=== PATIENT | female | born 1980 | race Caucasian/White ===

== ENCOUNTER → 2019-07-02 09:40 | Outpatient (CLI) | payer OTHER, SELFPAY ==
--- NOTE | 2019-07-02 09:50 | CT_ITS ---
PROCEDURE: CT CHEST W CON CLINCAL INDICATION: SOB,PRIOR LUNG NODULE shortness of air, cough, follow-up lung nodule COMPARISON: [facility], [place] CTA-CHEST from 06/26/2017 TECHNIQUE: IV Contrast: 75ml Optiray 350 Axial images obtained with sagittal and coronal reformats. All CT scans at the facility use one or more dose reduction, viz: automated exposure control, ma/kV adjustment per patient size (including targeted exams where dose is matched to indication, i.e. head), or iterative reconstruction technique. FINDINGS: HEART,AORTA,PULMONARY ARTERIES Unremarkable. MEDIASTINAL AND HILAR STRUCTURES: No mediastinal or hilar mass evident. No dominant adenopathy.. There is some residual soft tissue density in the anterior mediastinum which may be related to residual thymic tissue. LUNGS: There is a 3 mm noncalcified nodule in the right upper lobe laterally nonspecific too small to categorize unchanged. No effusions or infiltrates are evident. A calcified nodules present in the right upper lobe medially. An additional partially calcified nodules present in the left lower lobe medially unchanged. No new nodules are evident. A noncalcified nodules present in the superior segment of the left lower lobe at 7 mm similar to the previous exam. No new nodules. No suspicious nodules. There is a 4 mm noncalcified nodule in the superior segment of left lower lobe unchanged. PLEURAL SPACES: No significant effusion. No evidence of pneumothorax. BONY STRUCTURES: No acute bony abnormalities apparent. LYMPH NODES: No enlarged lymph nodes evident. UPPER ABDOMEN: Unremarkable. ADDITIONAL FINDINGS: No other significant abnormalities. IMPRESSION: Overall stable CT appearance of the chest. Calcified and noncalcified pulmonary nodules are once again noted unchanged. No new nodules evident. No change with no acute finding. Dictated by: Jason Hernandez MD 07/04/2019 13:21 Electronically signed by Jason Hernandez MD in [place] 07/04/2019 13:21
== END ==
PROVIDERS: PCP Family Medicine; Visit Provider Allergy & Immunology
DX: R06.02 Shortness of breath (principal); R91.8 Other nonspecific abnormal finding of lung field
CPT/HCPCS: 71260; Q9967

== ENCOUNTER → 2020-06-15 07:59 | Outpatient (CLI) | payer MEDICAID, SELFPAY ==
--- NOTE | 2020-06-15 08:03 | US_ITS ---
PROCEDURE: US ABDOMEN LIMITED CLINICAL INDICATION: ABD PAIN, NAUSEA AND VOMITING Nausea COMPARISON: No exams were available for comparison FINDINGS: PANCREAS: Unremarkable. No obvious mass or abnormal fluid collection. No ductal dilatation LIVER: No focal liver lesions demonstrated. Homogeneous echogenicity. No intrahepatic biliary ductal dilatation evident. There is appropriate direction of blood flow within a non dilated portal vein RIGHT KIDNEY: Unremarkable. Normal size and echogenicity. No hydronephrosis GALLBLADDER: No gallstones, gallbladder wall thickening, pericholecystic fluid, or biliary dilatation. IMPRESSION: Unremarkable limited abdominal ultrasound as detailed above disc Dictated by: Jason Hernandez MD 06/15/2020 12:53 Jason Hernandez MD in [place] 06/15/2020 12:53
== END ==
PROVIDERS: PCP Family Medicine; Visit Provider Nurse Practitioner
DX: R10.11 Right upper quadrant pain (principal); R11.2 Nausea with vomiting, unspecified
CPT/HCPCS: 76705

== ENCOUNTER → 2021-06-07 10:53 | Outpatient (CLI) | payer OTHER, SELFPAY | PROVIDERS: Visit Provider Nurse Practitioner | DX: Z20.822 Contact with and (suspected) exposure to COVID-19 (principal); U07.1 COVID-19 | CPT/HCPCS: C9803; U0003; U0005 ==

== ENCOUNTER → 2021-06-11 08:00 | Outpatient (CLI) | payer OTHER, SELFPAY | PROVIDERS: PCP Family Medicine; Visit Provider Family Medicine | DX: U07.1 COVID-19 (principal) ==

== ENCOUNTER → 2021-06-11 10:13 | Outpatient (CLI) | payer OTHER, SELFPAY | PROVIDERS: PCP Family Medicine; Visit Provider Nurse Practitioner | DX: Z20.822 Contact with and (suspected) exposure to COVID-19 (principal); U07.1 COVID-19 | CPT/HCPCS: C9803; U0003; U0005 ==

== ENCOUNTER 2021-06-14 07:50 | Outpatient (CLI) | payer OTHER, SELFPAY ==
[2021-06-14] VITALS (8 sets, daily range): BP systolic 119–141; BP diastolic 70–88; PULSE 65–74; RESP 17–18; TEMP 36.8; O2SAT 98–100
== END 2021-06-14 10:30 | disposition home or self-care (01) ==
PROVIDERS: PCP Family Medicine; Visit Provider Family Medicine
DX: U07.1 COVID-19 (principal); Z23 Encounter for immunization
CPT/HCPCS: 96365

== ENCOUNTER 2022-08-10 18:01 | Emergency (ER) | payer OTHER, SELFPAY ==
[2022-08-10 18:19] VITALS: BP 0/0; PULSE 0; RESP 0; TEMP -17.7; TEMP 0
== END 2022-08-10 18:19 | disposition left against medical advice (07) ==
PROVIDERS: Emergency Provider Nurse Practitioner Family; PCP Family Medicine
DX: Z53.8 Procedure and treatment not carried out for other reasons (principal)

== ENCOUNTER 2022-12-10 16:23 | Emergency (ER) | payer OTHER, SELFPAY ==
[2022-12-10 16:24] VITALS: BP 144/89; PULSE 82; RESP 20; TEMP 37; O2SAT 100; BMI 26.3
--- NOTE | 2022-12-10 16:54 | EXP.UTC ---
Discharge Plan Disposition Patient Disposition: Home, Self-Care Condition: Good Prescriptions Prescriptions: New promethazine-DM 6.25-15 mg/5 mL Syrup 5 ml PO Q6H PRN (Reason: Cough) Qty: 240 0RF prednisone 10 mg tablet 10 mg PO DIRECTED 9 Days Qty: 21 0RF Rx Instructions: Take 4 tablets daily for 3 days, then take 2 tablets daily for 3 days, then take 1 tablet daily for 3 days, then stop. azithromycin [Zithromax] 250 mg tablet 250 mg PO UD DOSE PK Qty: 6 0RF Rx Instructions: Take two (2) tablets today, then one (1) tablet days #2 thru #5 guaifenesin [Mucinex] 600 mg tablet extended release 12hr 600 - 1,200 mg PO BIDP PRN (Reason: Congestion) Qty: 30 0RF No Action albuterol sulfate 90 mcg/actuation HFA aerosol inhaler 1 puff INHALATION Q6H PRN (Reason: Shortness Of Breath) Referrals Follow up/Referrals: Tico Whelan MD [Primary Care Provider] - See instructions Activity Restrictions/Add. Instructions Additional Instructions/Restrictions: Drink plenty of fluids. Take tylenol or ibuprofen for pain or fever. Take the medications as directed. Follow up with your regular doctor. GO TO THE ER FOR ANY WORSENING SYMPTOMS Don't start the oral steroids until tomorrow, since you had the shot here today. The cough medication (promethazine dm) will make you drowsy, so don't drive or operate heavy machinery after taking it. Clinical Impressions Clinical Impression: Asthma exacerbation, Sinusitis Instructions Patient Instructions: DI for Asthma -- Adult, DI for Sinusitis Discharge ED Provider: Homer Coats [facility] General Stated complaint: Sinus, cough, congestion Mode of Arrival: Ambulatory Source of Information: Patient Limitations: No Limitations Time Seen by Provider: 12/10/22 16:54 Description of Symptoms (Recalled from Triage Doc. by RN): sore throat, SENA, congestion, cough, and sinuses. HEENT Symptoms (Recalled from RN notes): Yes Resp Symptoms (Recalled from RN notes): No Skin Symptoms (Recalled from RN notes): No MS Symptoms (Recalled from RN notes): No Functional Status (Recalled from RN notes): n/a History of Present Illness Provider Complaint: She states that for the past 4 days she has had worsening chest and sinus congestion. She has a history of asthma. She states that her asthma symptoms are worsening. At times she has had shortness of breath. Related Data Home Medications Medication Instructions Recorded Confirmed albuterol sulfate 90 mcg/actuation 1 puff inhalation Q6H PRN 05/02/18 09/11/19 aerosol inhaler Shortness Of Breath Previous Rx's Medication Instructions Recorded azithromycin 250 mg tablet 250 mg PO UD DOSE PK #6 tabs 12/10/22 (Zithromax) guaifenesin 600 mg tablet, 600 - 1,200 mg PO BIDP PRN 12/10/22 extended release 12 hr (Mucinex) Congestion #30 tabs prednisone 10 mg tablet 10 mg PO DIRECTED 9 days #21 12/10/22 tabs promethazine-DM 6.25 mg-15 mg/5 mL 5 ml PO Q6H PRN Cough #240 mL 12/10/22 oral syrup Allergies Allergy/AdvReac Type Severity Reaction Status Date / Time nalbuphine [NALBUPHINE] Allergy Mild Verified 12/10/22 16:43 Penicillins [PENICILLINS] Allergy Mild Verified 12/10/22 16:43 tramadol [TRAMADOL] Allergy Mild Verified 12/10/22 16:43 Worker's Comp Is this a Worker's Comp case?: No [facility] Disclaimer: The information contained in this section may have been updated after the patient was seen, as this information can be updated by other users. Social History Smoking Status: Never smoker alcohol intake: never current occupational status: employed Travel in the last 8 weeks: Inside the [place] ROS Obtained: Yes All systems reviewed & no additional complaints except as documented Constitutional Constitutional: Reports poor appetite Eyes Eyes: Reports system reviewed and no additional complaints, except as docum
--- NOTE | 2022-12-10 17:09 | XR_ITS ---
PROCEDURE INFORMATION: Exam: XR Chest Exam date and time: 12/10/2022 5:16 PM Age: 42 years old Clinical indication: Cough TECHNIQUE: Imaging protocol: Radiologic exam of the chest. Views: 2 views. COMPARISON: CT CHEST W CON 07/02/2019 10:03 AM FINDINGS: Lungs: Unremarkable. No consolidation. Pleural spaces: Unremarkable. No pleural effusion. No pneumothorax. Heart/Mediastinum: Unremarkable. No cardiomegaly. Bones/joints: Unremarkable. IMPRESSION: No acute findings.
[2022-12-10 18:21] VITALS: BP 144/89; PULSE 82; RESP 20; TEMP 37; O2SAT 100
== END 2022-12-10 18:21 | disposition home or self-care (01) ==
PROVIDERS: Emergency Provider Nurse Practitioner Family; PCP Family Medicine
DX: J45.901 Unspecified asthma with (acute) exacerbation (principal); J01.90 Acute sinusitis, unspecified
CPT/HCPCS: 71046; 96372; 99212; 99214; G0463; J0696

== ENCOUNTER 2023-06-03 14:59 | Emergency (ER) | payer OTHER, SELFPAY ==
[2023-06-03] VITALS (8 sets, daily range): BP systolic 101–126; BP diastolic 61–78; PULSE 92–107; RESP 16–20; TEMP 36.7–36.8; O2SAT 96–99; BMI 25.8
[2023-06-03 15:29] LABS: Basophils % 0.1 % (0.1-2.0); Eosinophils % 0.3 % (0.1-12.0); Hemoglobin 15.1 g/dL (12.2-16.2); Lymphocytes # 1.5 K/mm3 (0.7-4.5); Lymphocytes % 15.2 % (10-50); Mean Corpuscular HGB Conc 33.5 g/dL (31.8-35.4); Mean Corpuscular Hemoglobin 29.9 pg (27.0-31.2); Mean Corpuscular Volume 89.3 fl (81-99); Mean Platelet Volume 7.4 fl (7.4-10.4); Monocytes # 0.3 K/mm3 (0.1-1.0); Monocytes % 2.6 % (1.7-9.3); Neutrophils # 8.3 K/mm3 (1.8-7.8); Neutrophils % 81.8 % (37.0-80.0); Platelet Count 357 K/mm3 (142-424); Red Blood Count 5.04 M/mm3 (4.20-5.40); Red Cell Distribution Width 13.6 % (11.5-17.5); White Blood Count 10.1 K/mm3 (4.8-10.8)
--- NOTE | 2023-06-03 15:31 | HMH.EDGENADL ---
Discharge Plan Disposition Patient Disposition: Home, Self-Care Prescriptions Prescriptions: New ondansetron 4 mg tablet,disintegrating 4 mg PO Q6H PRN (Reason: nausea and vomiting) Qty: 10 0RF No Action albuterol sulfate 90 mcg/actuation HFA aerosol inhaler 1 puff INHALATION Q6H PRN (Reason: Shortness Of Breath) promethazine-DM 6.25-15 mg/5 mL Syrup 5 ml PO Q6H PRN (Reason: Cough) Qty: 240 0RF prednisone 10 mg tablet 10 mg PO DIRECTED 9 Days Qty: 21 0RF Rx Instructions: Take 4 tablets daily for 3 days, then take 2 tablets daily for 3 days, then take 1 tablet daily for 3 days, then stop. azithromycin [Zithromax] 250 mg tablet 250 mg PO UD DOSE PK Qty: 6 0RF Rx Instructions: Take two (2) tablets today, then one (1) tablet days #2 thru #5 guaifenesin [Mucinex] 600 mg tablet extended release 12hr 600 - 1,200 mg PO BIDP PRN (Reason: Congestion) Qty: 30 0RF Referrals Follow up/Referrals: Tico Whelan MD [Primary Care Provider] - See instructions Activity Restrictions/Add. Instructions Additional Instructions/Restrictions: Call your family doctor to establish care for this visit to the emergency department and schedule follow-up within 48 hours to ensure improvement. If you have any worsening of your condition or any other concerning signs or symptoms, return to the emergency department or your primary care doctor for further evaluation. Zofran sent to your pharmacy, take this as needed for nausea and vomiting. Clinical Impressions Clinical Impression: Vomiting and diarrhea Instructions Patient Instructions: DI for Acute Abdominal Pain Discharge ED Provider: Chay Coon General Adult HPI General Chief complaint: Abdominal Pain Stated complaint: vomiting, dizzy, h/a Time Seen by Provider: 06/03/23 15:03 Mode of Arrival: Ambulatory Source of Information: Patient Limitations: No Limitations Description of Symptoms (Recalled from ER Triage Doc. by RN): pt began vomiting this morning at 0830 and then it has tunred into dry heaving with dizziness, no known hx of inner ear isssues, pt denies any fever or chest pain and is possibly concerned for food poisoning History of Present Illness HPI narrative: 42-year-old female, history of asthma presenting with vomiting and diarrhea. Patient states that she woke up today, started vomiting nonbloody, nonbilious vomit every 30 minutes to an hour. Has not been able to tolerate any p.o. intake, including medications. Sips of water, but she will throw up shortly thereafter. Diarrhea is nonbloody as well. Patient states that she is feeling lightheaded, has a headache, intermittently dizzy, but denies chest pain, new cough, fevers or chills, any sick contacts. She states that she went out with friends night prior to arrival and drank socially, but did not drink heavily, so not sure if this is contributing or not. Related Data Home Medications Medication Instructions Recorded Confirmed albuterol sulfate 90 mcg/actuation 1 puff inhalation Q6H PRN 05/02/18 09/11/19 aerosol inhaler Shortness Of Breath Previous Rx's Medication Instructions Recorded azithromycin 250 mg tablet 250 mg PO UD DOSE PK #6 tabs 12/10/22 (Zithromax) guaifenesin 600 mg tablet, 600 - 1,200 mg PO BIDP PRN 12/10/22 extended release 12 hr (Mucinex) Congestion #30 tabs prednisone 10 mg tablet 10 mg PO DIRECTED 9 days #21 12/10/22 tabs promethazine-DM 6.25 mg-15 mg/5 mL 5 ml PO Q6H PRN Cough #240 mL 12/10/22 oral syrup ondansetron 4 mg disintegrating 4 mg PO Q6H PRN nausea and 06/03/23 tablet vomiting #10 tabs Allergies Allergy/AdvReac Type Severity Reaction Status Date / Time nalbuphine [NALBUPHINE] Allergy Mild Verified 12/10/22 16:43 Penicillins [PENICILLINS] Allergy Mild Verified 12/10/22 16:43 tramadol [TRAMADOL] Allergy Mild Verified 12/10/22 16:43 [facility] Disclaimer: The information contained in this section may have been updat
[2023-06-03 15:39] LABS: Alanine Aminotransferase 30 U/L (12-78); Albumin/Globulin Ratio 1.4 (1.1-1.8); Alkaline Phosphatase 75 U/L (38-126); Anion Gap 14.2 mEq/L (5-15); Aspartate Amino Transferase 35 U/L (14-36); Bilirubin,Total 0.6 mg/dl (0.2-1.3); Blood Urea Nitrogen 9 mg/dl (7-17); Carbon Dioxide 25 mmol/L (22.0-30.0); Chloride 103 mmol/L (98-107); Creatinine Clearance Estimated 122 mL/min (50-200); Estimated Glomerular Filt Rate 93 ml/min (>60); GFR (African American) 112 ML/MIN (>60); Globulin 3.6 g/dL (1.3-3.2); Glucose 116 mg/dl (74-100); Potassium 4.2 mmoL/L (3.5-5.1); Sodium 138 mmol/L (136-145); Total Protein,Serum 8.6 g/dl (6.3-8.2)
[2023-06-03 15:56] LABS: HCG,Quantitative < 2 mIU/ml (0-5.42); Lipase 45 U/L (23-300)
--- NOTE | 2023-06-03 16:37 | PC.NURSE ---
gave patient water to drink for po challenge per er md
== END 2023-06-03 18:48 | disposition home or self-care (01) ==
PROVIDERS: Emergency Provider Emergency Medicine; PCP Family Medicine
DX: R11.2 Nausea with vomiting, unspecified (principal); R19.7 Diarrhea, unspecified; R42 Dizziness and giddiness; R51.9 Headache, unspecified
CPT/HCPCS: 80053; 83690; 84702; 85025; 96361; 96374; 96375; 99284; J0131; J2405

== ENCOUNTER 2023-12-20 16:41 | Emergency (ER) | payer OTHER, SELFPAY ==
[2023-12-20 16:50] VITALS: BP 166/85; PULSE 103; RESP 20; TEMP 36.5; O2SAT 98; BMI 25.8
[2023-12-20] MEDS: LACTATED RINGERS 1000ML 1,000 ML 999 ML IV (17:10)
[2023-12-20 17:14] LABS: Basophils # 0.1 K/mm3 (0-0.2); Basophils % 0.7 % (0.1-2.0); Eosinophils # 0.1 K/mm3 (0.0-0.4); Eosinophils % 1.8 % (0.1-12.0); Hematocrit 45.2 % (37.0-47.0); Hemoglobin 14.4 g/dL (12.2-16.2); Lymphocytes # 2.5 K/mm3 (0.7-4.5); Lymphocytes % 33.6 % (10-50); Mean Corpuscular HGB Conc 31.9 g/dL (31.8-35.4); Mean Corpuscular Hemoglobin 29.1 pg (27.0-31.2); Mean Corpuscular Volume 91.3 fl (81-99); Mean Platelet Volume 7.4 fl (7.4-10.4); Monocytes # 0.4 K/mm3 (0.1-1.0); Monocytes % 5.8 % (1.7-9.3); Neutrophils # 4.4 K/mm3 (1.8-7.8); Platelet Count 374 K/mm3 (142-424); Red Blood Count 4.96 M/mm3 (4.20-5.40); Red Cell Distribution Width 14.2 % (11.5-17.5); White Blood Count 7.5 K/mm3 (4.8-10.8)
--- NOTE | 2023-12-20 17:15 | ECG_ITS ---
APPROVED REPORT Exam: Resting ECG HR:105 bpm ECG Measurements Heart Rate 105 AXES HI 150 P 60 QRSd 73 QRS 39 QT 323 T 42 QTc 384 Conclusion SINUS TACHYCARDIA Electronically signed by : GERRY CARCAMO, 12/21/2023 14:57:33
[2023-12-20 17:20] LABS: Alanine Aminotransferase 21 U/L (12-78); Albumin/Globulin Ratio 1.5 (1.1-1.8); Alkaline Phosphatase 60 U/L (38-126); Anion Gap 12.8 mEq/L (5-15); Aspartate Amino Transferase 32 U/L (14-36); Bilirubin,Total 0.6 mg/dl (0.2-1.3); Blood Urea Nitrogen 12 mg/dl (7-17); Calcium 10.3 mg/dl (8.4-10.2); Carbon Dioxide 28 mmol/L (22.0-30.0); Chloride 104 mmol/L (98-107); Creatinine Clearance Estimated 106 mL/min (50-200); Estimated Glomerular Filt Rate 79 ml/min (>60); GFR (African American) 96 ML/MIN (>60); Globulin 3.3 g/dL (1.3-3.2); Glucose 101 mg/dl (74-100); Magnesium 2.1 mg/dl (1.6-2.3); Potassium 3.8 mmoL/L (3.5-5.1); Sodium 141 mmol/L (136-145); Total Protein,Serum 8.3 g/dl (6.3-8.2)
--- NOTE | 2023-12-20 17:31 | ED_ITS ---
Discharge Plan Disposition Patient Disposition: Home, Self-Care Chief Complaint: Dizziness Prescriptions Prescriptions: No Action albuterol sulfate 90 mcg/actuation HFA aerosol inhaler 1 puff INHALATION Q6H PRN (Reason: Shortness Of Breath) promethazine-DM 6.25-15 mg/5 mL Syrup 5 ml PO Q6H PRN (Reason: Cough) Qty: 240 0RF prednisone 10 mg tablet 10 mg PO DIRECTED 9 Days Qty: 21 0RF Rx Instructions: Take 4 tablets daily for 3 days, then take 2 tablets daily for 3 days, then take 1 tablet daily for 3 days, then stop. azithromycin [Zithromax] 250 mg tablet 250 mg PO UD DOSE PK Qty: 6 0RF Rx Instructions: Take two (2) tablets today, then one (1) tablet days #2 thru #5 guaifenesin [Mucinex] 600 mg tablet extended release 12hr 600 - 1,200 mg PO BIDP PRN (Reason: Congestion) Qty: 30 0RF ondansetron 4 mg tablet,disintegrating 4 mg PO Q6H PRN (Reason: nausea and vomiting) Qty: 10 0RF Referrals Follow up/Referrals: Provider,Referral, MD [Primary Care Provider] - See instructions Activity Restrictions/Add. Instructions Additional Instructions/Restrictions: Call your family doctor to establish care for this visit to the emergency department and schedule follow-up within 48 hours to ensure improvement. If you have any worsening of your condition or any other concerning signs or symptoms, return to the emergency department or your primary care doctor for further evaluation. Clinical Impressions Clinical Impression: Heart palpitations, Lightheadedness, Pre-syncope Discharge ED Provider: Chay Coon General Adult HPI General Chief complaint: Dizziness Stated complaint: allergic reaction at doctors office Time Seen by Provider: 12/20/23 16:43 Mode of Arrival: Ambulatory Source of Information: Patient Limitations: No Limitations Description of Symptoms (Recalled from ER Triage Doc. by RN): pt to ed c/o possible allergic reaction. pt states she received her monthly allergy injection, got to the car and became light-headed, dizzy, tachycardic and hypertensive. pt states i just don't feel right. pt denies cp. pt denies any new medication doses or changes. History of Present Illness HPI narrative: Please note that above description of symptoms, in this electronic medical record under categorization of recalled from ER triage doctor by RN are reflective of an initial nursing assessment, however, is not reflective of my full history and physical exam that was personally taken and clarified. Consequentially, this preceding description of symptoms, which may include the patient's categorized chief complaint in the EMR, do not reflect my personal clinical impression, and the ultimate description of history of present illness and patient stated complaints should be deferred to this section of the note. Unless stated otherwise or congruent with this section of the note, additional signs, symptoms, or incongruence should be interpreted as inaccurate with my clinical impression. Related Data Home Medications Medication Instructions Recorded Confirmed albuterol sulfate 90 mcg/actuation 1 puff inhalation Q6H PRN 05/02/18 09/11/19 aerosol inhaler Shortness Of Breath Previous Rx's Medication Instructions Recorded azithromycin 250 mg tablet 250 mg PO UD DOSE PK #6 tabs 12/10/22 (Zithromax) guaifenesin 600 mg tablet, 600 - 1,200 mg (1 - 2 x 600 mg) PO 12/10/22 extended release 12 hr (Mucinex) BIDP PRN Congestion #30 tabs prednisone 10 mg tablet 10 mg PO DIRECTED 9 days #21 12/10/22 tabs promethazine-DM 6.25 mg-15 mg/5 mL 5 ml PO Q6H PRN Cough #240 mL 12/10/22 oral syrup ondansetron 4 mg disintegrating 4 mg PO Q6H PRN nausea and 06/03/23 tablet vomiting #10 tabs Allergies Allergy/AdvReac Type Severity Reaction Status Date / Time nalbuphine [NALBUPHINE] Allergy Mild Verified 12/10/22 16:43 Penicillins [PENICILLINS] Allergy Mild Verified 12/10/22 16:43 tramadol [TRAMADOL] Allergy Mild Verified 12/10/22 16:43 [facility] Disclaimer: The information contained in this section may have been updated after the patient was seen, as this information can be updated by other users. Social History Smoking Status: Never smoker alcohol intake: never current occupational status: employed Travel in the last 8 weeks: Inside the [place] ROS Obtained: Yes All systems reviewed & no additional complaints except as documented Physical Exam General General appearance: alert and in no apparent distress Head Head exam: atraumatic and normocephalic Eye Eye exam: Present normal appearance, PERRL and EOMI ENT ENT exam: Present mucous membranes moist Neck Neck exam: Present normal inspection, full ROM and trachea midline Respiratory Respiratory exam: Absent respiratory distress, wheezes, stridor, accessory muscle use or prolonged expiratory phase Cardiovascular Cardiovascular exam: Present normal rhythm Abdominal Exam Abdominal exam: Present soft; Absent distention, tenderness, guarding, rebound or rigidity Extremities Exam Extremities exam: Absent edema Neurological Exam Neurological exam: Present alert, oriented X3, CN II-XII intact and normal gait; Absent motor sensory deficit Skin Skin exam: Present warm and dry; Absent diaphoresis or erythema Medical Decision Making Medical Records Medical records reviewed: Yes I reviewed the patient's medical records. Warner Inquiry Pt receiving controlled substance: No Warner was queried for this patient: No Vital Signs: 12/20/23 16:50 Temperature 97.7 F Temperature Source Oral Pulse Rate [Left Radial] 103 H Respiratory Rate 20 Blood Pressure [Right Arm] 166/85 H Blood Pressure Mean [Right Arm] 112 02 Sat by Pulse Oximetry 98 Oxygen Delivery Method Room Air Lab Data Lab Results 12/20/23 16:57: WBC 7.5, RBC 4.96, Hgb 14.4, Hct 45.2, MCV 91.3, MCH 29.1, MCHC 31.9, RDW 14.2, Plt Count 374, MPV 7.4, Neut % (Auto) 58.0, Lymph % (Auto) 33.6, [place] % (Auto) 5.8, Eos % (Auto) 1.8, Baso % (Auto) 0.7, Neut # (Auto) 4.4, Lymph # (Auto) 2.5, [place] # (Auto) 0.4, Eos # (Auto) 0.1, Baso # (Auto) 0.1, Sodium 141, Potassium 3.8, Chloride 104, Carbon Dioxide 28, Anion Gap 12.8, BUN 12, Creatinine 0.80, Estimated Creat Clear 106, Estimated GFR 79, Est GFR ( Amer) 96, Glucose 101 H, Calcium 10.3 H, Magnesium 2.1, Total Bilirubin 0.6, AST 32, ALT 21, Alkaline Phosphatase 60, Troponin I < 0.01, Total Protein 8.3 H, Albumin 5.0, Globulin 3.3 H, Albumin/Globulin Ratio 1.5 12/20/23 16:57 12/20/23 16:57 Orders (Tests/Meds): ED MEDICATIONS Discontinued Medications Generic Name Dose Route Start Last Admin Trade Name Daniella PRN Reason Stop Dose Admin Lactated Ringer's 1,000 mls @ 999 mls/hr 12/20/23 17:03 12/20/23 17:10 Lactated Ringer's 1000 Ml Bag IV 12/20/23 18:03 999 mls/hr .Q1H1M ONE Administration ORDERS Category Date Time Status CBC w/Auto Diff [Complete Blood Count Auto Diff] Stat Lab 12/20/23 16:57 Completed CMP [Comprehensive Metabolic Panel] Stat Lab 12/20/23 16:57 Completed Magnesium Stat Lab 12/20/23 16:57 Completed Trop I [Troponin I] Stat Lab 12/20/23 16:57 Completed Troponin I Q3H Lab 12/20/23 20:15 Ordered Troponin I Q3H Lab 12/20/23 23:15 Ordered Medical Decision Narrative: 43-year-old female history of allergies presenting with lightheadedness and palpitations. Patient states that she was getting allergy vaccinations just prior to this visit. Began feeling lightheaded with palpitations shortly thereafter. Try to sit still and manage conservatively, manager human capital recommended she come to the emergency department for further evaluation. Patient states that she has been getting these allergy shots for years, has never had similar reaction. Denies tongue or throat swelling, difficulty breathing, wheezing, cough, nausea or vomiting, abdominal discomfort, rash, or any other concerns. History was obtained via conversation with patient. On arrival, patient hemodynamically stable, alert, oriented x4, appropriate, GCS 15, moving all extremities spontaneously, pupils equal and reactive to light. Full physical exam performed and significant for anxious appearing woman in no acute distress. She is mildly tachycardic. Lungs are clear to auscultation bilaterally anterior and posterior. No extracardiac sounds. Differential includes anxiety, medication reaction, metabolic abnormality, anaphylaxis, among others. Patient was given fluids for symptomatic management and correction of underlying abnormalities. Workup independently interpreted and significant for nonactionable CBC and chemistry. Magnesium normal, overall unremarkable hematologic workup. See radiology read for full review of final results. Independent interpretation of EKG shows sinus tachycardia [address] or T wave changes concerning for acute ischemia. TX, QRS, QT intervals within normal limits. [place] normal. On reevaluation, patient feeling better, nontachycardic, normotensive, asymptomatic. Given patient presentation, workup, history, this most likely represents acute medication reaction versus acute anxiety. Because patient at baseline without signs or symptoms of clinical decompensation, deemed appropriate for discharge. Results were relayed to patient who voiced understanding and were agreeable to outpatient management and follow up. I discussed my clinical impression with patient and answered all questions. At this time, the evidence for any other entities in the differential is insufficient to warrant any further testing or ED observation. This was explained as well. Advisory was given that persistent or worsening symptoms require further evaluation. I confirmed the understanding of this discussion. Critical Care Critical Care Time Critical Care Time: No
[2023-12-20 17:45] LABS: Troponin I < 0.01 ng/ml (0.00-0.034)
--- NOTE | 2023-12-20 18:27 | PC.NURSE ---
DR CARCAMO AT BEDSIDE
[2023-12-20 18:38] VITALS: BP 129/67; PULSE 74; RESP 18; TEMP 37.1; O2SAT 99
== END 2023-12-20 18:41 | disposition home or self-care (01) ==
PROVIDERS: Emergency Provider Emergency Medicine
DX: R55 Syncope and collapse (principal); R42 Dizziness and giddiness; R00.2 Palpitations; R00.0 Tachycardia, unspecified
CPT/HCPCS: 80053; 83735; 84484; 85025; 93005; 96360; 99284

== ENCOUNTER 2024-07-21 10:19 | Emergency (ER) | payer OTHER, SELFPAY ==
[2024-07-21 10:33] VITALS: BP 141/70; PULSE 96; RESP 20; TEMP 36.9; O2SAT 98; BMI 25.3
[2024-07-21 10:40] LABS: UTC Strep Screen (Rapid) Negative (Negative)
--- NOTE | 2024-07-21 11:16 | EXP.UTC ---
Discharge Plan Disposition Patient Disposition: Home, Self-Care Condition: Good Prescriptions Prescriptions: New albuterol sulfate [Ventolin HFA] 90 mcg/actuation HFA aerosol inhaler 2 puff inhalation Q6H PRN (Reason: shortness of breath or wheezing) Qty: 6.7 0RF azithromycin [Zithromax] 250 mg tablet 250 mg PO UD DOSE PK Qty: 6 0RF Rx Instructions: Take two (2) tablets today, then one (1) tablet days #2 thru #5 methylprednisolone 4 mg Tablets,Dose Pack 4 mg PO DIRECTED 6 Days Qty: 21 0RF Rx Instructions: Take 1 pack as directed for 6 days No Action albuterol sulfate 90 mcg/actuation HFA aerosol inhaler 1 puff INHALATION Q6H PRN (Reason: Shortness Of Breath) tizanidine 2 mg tablet 2 mg PO DAILY Patient Comments: TAKE 1 TABLET BY MOUTH 3 TIMES DAILY NEEDED Referrals Follow up/Referrals: Marcial Crockett MD [Primary Care Provider] - See instructions Activity Restrictions/Add. Instructions Additional Instructions/Restrictions: Drink plenty of fluids. Take tylenol or ibuprofen for pain or fever. Take the medications as directed. Follow up with your regular doctor. GO TO THE ER FOR ANY WORSENING SYMPTOMS Clinical Impressions Clinical Impression: Asthma exacerbation Stand Alone Forms Stand Alone Forms: Work/School Release Instructions Patient Instructions: Asthma -- Adult, Methylprednisolone, Azithromycin Print Language Print Language: Persian Discharge ED Provider: Homer Coats [facility] [place] General Stated complaint: chest congestion, sore throat, cough Mode of Arrival: Ambulatory Source of Information: Patient Time Seen by Provider: 07/21/24 11:16 Description of Symptoms (Recalled from Triage Doc. by RN): SORE THROAT, GREEN/YELLOW DRAINAGE, CHEST CONGESTION, COUGH AND BAD TASTE IN MOUTH HEENT Symptoms (Recalled from RN notes): Yes Resp Symptoms (Recalled from RN notes): Yes Skin Symptoms (Recalled from RN notes): No MS Symptoms (Recalled from RN notes): No Functional Status (Recalled from RN notes): WNL Related Data Home Medications ?Medication ?Instructions ?Recorded ?Confirmed albuterol sulfate 90 mcg/actuation 1 puff inhalation Q6H PRN 05/02/18 09/11/19 aerosol inhaler Shortness Of Breath tizanidine 2 mg tablet 2 mg PO DAILY 07/21/24 07/21/24 Previous Rx's ?Medication ?Instructions ?Recorded albuterol sulfate 90 mcg/actuation 2 puff inhalation Q6H PRN 07/21/24 aerosol inhaler (Ventolin HFA) shortness of breath or wheezing #6.7 grams azithromycin 250 mg tablet 250 mg PO UD DOSE PK #6 tabs 07/21/24 (Zithromax) methylprednisolone 4 mg tablets in 4 mg PO DIRECTED 6 days #21 tabs 07/21/24 a dose pack Allergies Allergy/AdvReac Type Severity Reaction Status Date / Time nalbuphine (NALBUPHINE) Allergy Mild Verified 12/10/22 16:43 Penicillins (PENICILLINS) Allergy Mild Verified 12/10/22 16:43 tramadol (TRAMADOL) Allergy Mild Verified 12/10/22 16:43 Worker's Comp Is this a Worker's Comp case?: No [facility] Disclaimer: The information contained in this section may have been updated after the patient was seen, as this information can be updated by other users. Social History Smoking Status: Never smoker alcohol intake: never current occupational status: employed ROS Obtained: Yes All systems reviewed & no additional complaints except as documented Constitutional Constitutional: Reports poor appetite Eyes Eyes: Reports system reviewed and no additional complaints, except as documented ENT Ears, Nose, Mouth, and Throat: Reports as per HPI Cardiovascular Cardiovascular: Reports system reviewed and no additional complaints, except as documented and Denies chest pain Respiratory Respiratory: Denies shortness of breath, Reports chest congestion, Reports cough, Denies stridor and Denies wheezing Gastrointestinal Gastrointestingal: Reports system reviewed and no additional complaints, except as documented; Denies abdominal pain, diarrhea or vomiting Musculoskeletal Musculoskeletal: Reports system reviewed and no additional complaints, except as documented and Denies arthralgias Integumentary/Breasts Skin/Breast: Reports system reviewed and no additional complaints, except as documented and Denies rash Neurologic Neurologic: Denies paresthesias Allergic/Immunologic Allergic/Immunologic: Denies wheezing Physical Exam General General appearance: alert and in no apparent distress Head Head exam: atraumatic, normocephalic and normal inspection Eye Eye exam: Present normal appearance, PERRL and EOMI ENT ENT exam: Present normal exam, normal oropharynx, mucous membranes moist, TM's normal bilaterally and normal external ear exam Neck Neck exam: Present normal inspection, full ROM and trachea midline; Absent meningismus or lymphadenopathy Chest Chest inspection: Present normal inspection and symmetric chest wall rise; Absent tenderness Respiratory Respiratory exam: Present normal lung sounds bilaterally; Absent respiratory distress Cardiovascular Cardiovascular exam: Present regular rate and normal rhythm; Absent JVD Abdominal Exam Abdominal exam: Present soft and normal bowel sounds; Absent distention, tenderness or guarding Extremities Exam Extremities exam: Present normal inspection, full ROM and normal capillary refill; Absent calf tenderness Back Exam Back exam: Present normal inspection; Absent tenderness Neurological Exam Neurological exam: Present alert and oriented X3 Psychiatric Psychiatric exam: Present normal affect and normal mood Skin Skin exam: Present warm, dry, intact and normal color Lymphatic Lymphatic Findings: no adenopathy Medical Decision Making Medical Records Medical records reviewed: No I reviewed the patient's medical records. Screening: Per USPSTF and CDC recommendations, given the prevalence of disease in our region, it is our hospital?s policy to screen for HIV and viral Hepatitis for all patients aged 18 and over and those with ongoing risk factors. Warner Inquiry Pt receiving controlled substance: No Vital Signs: 07/21/24 10:33 Temperature 98.5 F Temperature Source Oral Pulse Rate [Left Radial] 96 H Respiratory Rate 20 Blood Pressure [Left Arm] 141/70 H Blood Pressure Mean [Left Arm] 93 02 Sat by Pulse Oximetry 98 Lab Data Lab Results 07/21/24 10:27: Strep Scn Rapid Clinic Negative Orders (Tests/Meds): ORDERS Category Date Time Status Strep Screen Confirmation Stat Micro 07/21/24 10:27 Received
[2024-07-21 11:44] VITALS: BP 141/70; PULSE 96; RESP 20; TEMP 36.9
== END 2024-07-21 11:44 | disposition home or self-care (01) ==
PROVIDERS: Emergency Provider Nurse Practitioner Family; PCP Internal Medicine Adolescent Medicine
DX: J45.901 Unspecified asthma with (acute) exacerbation (principal); R05.9 Cough, unspecified; R09.89 Other specified symptoms and signs involving the circulatory and respiratory systems; J02.9 Acute pharyngitis, unspecified
CPT/HCPCS: 87880; 99212; G0381

== ENCOUNTER 2024-08-12 06:04 | Emergency (ER) | payer OTHER, SELFPAY ==
[2024-08-12 06:04] VITALS: BP 137/88; PULSE 104; RESP 16; TEMP 37.5; O2SAT 97; BMI 25.0
--- NOTE | 2024-08-12 06:06 | HMH.EDGENADL ---
Discharge Plan Disposition Patient Disposition: Home, Self-Care Prescriptions Prescriptions: New ondansetron 4 mg tablet,disintegrating 4 mg PO Q6H PRN (Reason: nausea and vomiting) Qty: 7 0RF promethazine 12.5 mg tablet 12.5 mg PO TID PRN (Reason: sedation) Qty: 7 0RF ondansetron 4 mg tablet,disintegrating 4 mg PO Q6H PRN (Reason: nausea and vomiting) Qty: 7 0RF promethazine 12.5 mg tablet 12.5 mg PO TID PRN (Reason: nausea and vomiting) Qty: 7 0RF No Action albuterol sulfate 90 mcg/actuation HFA aerosol inhaler 1 puff INHALATION Q6H PRN (Reason: Shortness Of Breath) tizanidine 2 mg tablet 2 mg PO DAILY Patient Comments: TAKE 1 TABLET BY MOUTH 3 TIMES DAILY NEEDED albuterol sulfate [Ventolin HFA] 90 mcg/actuation HFA aerosol inhaler 2 puff inhalation Q6H PRN (Reason: shortness of breath or wheezing) Qty: 6.7 0RF azithromycin [Zithromax] 250 mg tablet 250 mg PO UD DOSE PK Qty: 6 0RF Rx Instructions: Take two (2) tablets today, then one (1) tablet days #2 thru #5 methylprednisolone 4 mg Tablets,Dose Pack 4 mg PO DIRECTED 6 Days Qty: 21 0RF Rx Instructions: Take 1 pack as directed for 6 days Referrals Follow up/Referrals: Marcial Crockett MD [Primary Care Provider] - See instructions Activity Restrictions/Add. Instructions Additional Instructions/Restrictions: You were evaluated in the ER and are appropriate for discharge at this time. If needed, take the prescribed ondansetron (Zofran) for nausea and vomiting. Drink plenty of water. You can also drink Gatorade/other electrolyte drinks. If the ondansetron does not control your symptoms, then you can try the promethazine (Phenergan). Do not take these medications within 6 hours of each other to avoid potentially dangerous side effects. Promethazine can make you sleepy, do not drive or operate machinery after taking it. Make an appointment with your primary care doctor for reevaluation in a few days. Return to the ER with new, worsening, or otherwise concerning symptoms as discussed. Clinical Impressions Clinical Impression: Nausea & vomiting Instructions Patient Instructions: DI for Nausea -- Adult Print Language Print Language: Hungarian Discharge ED Provider: Horace Baker General Adult HPI <Horace Baker MD - Last Filed: 08/12/24 07:02> General Chief complaint: Nausea/Vomiting/Diarrhea Stated complaint: vomiting Time Seen by Provider: 08/12/24 06:06 History of Present Illness HPI narrative: 44-year-old female with no significant past medical history presents for acute nausea and vomiting. She reports that she ate some home canned tomatoes yesterday and then tonight around 1 AM started having severe vomiting. She reports that she has not had any abdominal pain. Reports there is no chance could be . Related Data Home Medications ?Medication ?Instructions ?Recorded ?Confirmed albuterol sulfate 90 mcg/actuation 1 puff inhalation Q6H PRN 05/02/18 09/11/19 aerosol inhaler Shortness Of Breath tizanidine 2 mg tablet 2 mg PO DAILY 07/21/24 07/21/24 Previous Rx's ?Medication ?Instructions ?Recorded albuterol sulfate 90 mcg/actuation 2 puff inhalation Q6H PRN 07/21/24 aerosol inhaler (Ventolin HFA) shortness of breath or wheezing #6.7 grams azithromycin 250 mg tablet 250 mg PO UD DOSE PK #6 tabs 07/21/24 (Zithromax) methylprednisolone 4 mg tablets in 4 mg PO DIRECTED 6 days #21 tabs 07/21/24 a dose pack ondansetron 4 mg disintegrating 4 mg PO Q6H PRN nausea and 08/12/24 tablet vomiting #7 tabs ondansetron 4 mg disintegrating 4 mg PO Q6H PRN nausea and 08/12/24 tablet vomiting #7 tabs promethazine 12.5 mg tablet 12.5 mg PO TID PRN nausea and 08/12/24 vomiting #7 tabs promethazine 12.5 mg tablet 12.5 mg PO TID PRN sedation #7 tabs 08/12/24 Allergies Allergy/AdvReac Type Severity Reaction Status Date / Time nalbuphine (NALBUPHINE) Allergy Mild Verified 12/10/22 16:43 Penicillins (PENICILLINS) Allergy Mild Verified 12/10/22 16:43 tramadol (TRAMADOL) Allergy Mild Verified 12/10/22 16:43 PFSH <Horace Baker MD - Last Filed: 08/12/24 07:02> COUNTS INCLUDE 234 BEDS AT THE [facility] Disclaimer: The information contained in this section may have been updated after the patient was seen, as this information can be updated by other users. Social History Smoking Status: Never smoker alcohol intake: never current occupational status: employed Travel in the last 8 weeks: Inside the [place] Have you lived/traveled outside [place] in past 30 days?: No Contact w/someone who lives/traveled outside [place] past 30 days?: No Exposure to someone with infectious disease in past 14 days?: No Do you have a fever (greater than 100.4 F or 38 C)?: No Have you tested positive for COVID-19: No Exposed to someone with COVID-19 in past 14 days?: No Do you have a sore throat?: No Do you have a cough?: No Do you have any weakness?: No Do you have any diarrhea?: No Are you experiencing any unusual bleeding?: No Do you have any muscle aches/pain?: No Do you have any abdominal pain?: No Are you experiencing loss of taste or smell?: No Other Medical History Have you received the Flu Vaccine for this season: No Have you received the Pneumonia Vaccine: No <Horace Baker MD - Last Filed: 08/12/24 07:02> ROS Obtained: Yes All systems reviewed & no additional complaints except as documented Physical Exam <Horace Baker MD - Last Filed: 08/12/24 07:02> General General appearance: alert and in no apparent distress Head Head exam: atraumatic and normocephalic Eye Eye exam: Present normal appearance, PERRL and EOMI ENT ENT exam: Present normal oropharynx and normal external ear exam Neck Neck exam: Present normal inspection and full ROM Chest Chest inspection: Present normal inspection and symmetric chest wall rise; Absent tenderness Respiratory Respiratory exam: Present normal lung sounds bilaterally; Absent respiratory distress Cardiovascular Cardiovascular exam: Present regular rate and normal rhythm Abdominal Exam Abdominal exam: Present soft; Absent distention, tenderness or guarding Extremities Exam Extremities exam: Present normal inspection; Absent edema or joint swelling Back Exam Back exam: Present normal inspection; Absent tenderness Neurological Exam Neurological exam: Present alert and oriented X3; Absent motor sensory deficit Psychiatric Psychiatric exam: Present normal affect and normal mood Skin Skin exam: Present warm, dry and normal color Lymphatic Lymphatic Findings: no adenopathy Medical Decision Making <Horace Baker MD - Last Filed: 08/12/24 07:02> Medical Records Medical records reviewed: Yes I reviewed the patient's medical records. Screening: Per USPSTF and CDC recommendations, given the prevalence of disease in our region, it is our hospital?s policy to screen for HIV and viral Hepatitis for all patients aged 18 and over and those with ongoing risk factors. Warner Inquiry Pt receiving controlled substance: No Warner was queried for this patient: No Vital Signs: 08/12/24 06:04 08/12/24 06:46 Temperature 99.5 F Temperature Source Oral Pulse Rate 115 H Pulse Rate [Right Radial] 104 H Respiratory Rate 16 Blood Pressure 148/88 H Blood Pressure [Right Arm] 137/88 Blood Pressure Mean [Right Arm] 104 Blood Pressure Source [Right Arm] Automatic Cuff Blood Pressure Position [Right Arm] Supine 02 Sat by Pulse Oximetry 97 97 Oxygen Delivery Method Room Air Lab Data Lab results reviewed: Yes I reviewed the patient's lab results. Lab Results 08/12/24 06:20: WBC 15.0 H, RBC 4.71, Hgb 13.6, Hct 40.0, MCV 84.9, MCH 28.9, MCHC 34.0, RDW 13.2, Plt Count 290, MPV 9.0, Neut % (Auto) 93.9 H, Lymph % (Auto) 2.9 L, [place] % (Auto) 2.7, Eos % (Auto) 0.1, Baso % (Auto) 0.1, Neut # (Auto) 14.1 H, Lymph # (Auto) 0.4 L, [place] # (Auto) 0.4, Eos # (Auto) 0.0, Baso # (Auto) 0.0, Sodium 134 L, Potassium 4.2, Chloride 106, Carbon Dioxide 25, Anion Gap 7.2, BUN 17, Creatinine 0.70, Estimated Creat Clear 116, Estimated GFR 92, Est GFR ( Amer) 111, Glucose 112 H, Calcium 9.6, Magnesium 2.0, Total Bilirubin 1.1, AST 29, ALT 23, Alkaline Phosphatase 55, Total Protein 7.1, Albumin 4.4, Globulin 2.7, Albumin/Globulin Ratio 1.6 08/12/24 06:20 08/12/24 06:20 Orders (Tests/Meds): ED MEDICATIONS Generic Name Dose Route Start Last Admin Trade Name Freq PRN Reason Stop Dose Admin Sodium Chloride 1,000 mls @ 999 mls/hr 08/12/24 06:30 08/12/24 06:28 Sod Chlor 0.9% 1000ml Bag IV 08/12/24 07:30 999 mls/hr .Q1H1M CORNEL Administration Discontinued Medications Generic Name Dose Route Start Last Admin Trade Name Freq PRN Reason Stop Dose Admin Acetaminophen 1,000 mg 08/12/24 06:25 08/12/24 06:38 Acetaminophen 500mg Tab PO 08/12/24 06:26 1,000 mg ONCE ONE Administration Promethazine HCl 25 mg 08/12/24 06:20 08/12/24 06:29 Promethazine Hcl 25mg/Ml 1ml Vial IV 08/12/24 06:21 25 mg ONCE ONE Administration Sodium Chloride 25 ml 08/12/24 06:20 08/12/24 06:29 Sodium Chloride 0.9% 25ml Bag IV 08/12/24 06:21 25 ml ONCE ONE Administration ORDERS Category Date Time Status CBC w/Auto Diff [Complete Blood Count Auto Diff] Stat Lab 08/12/24 06:20 Results CMP [Comprehensive Metabolic Panel] Stat Lab 08/12/24 06:20 Completed MAG [Magnesium] Stat Lab 08/12/24 06:20 Completed Medical Decision Narrative: 44-year-old female without significant past medical history presents for acute onset of vomiting a few hours after eating canned tomatoes.. History was obtained via interactive discussion with patient. On arrival, patient is [afebrile, hemodynamically stable, satting appropriately, alert, oriented x4, GCS 15], moving all extremities spontaneously. Full physical exam performed and significant for benign abdominal exam, moist mucous membranes Differential includes but is not limited to food poisoning, gastroenteritis, influenza. Patient was given 1 L IV fluid bolus, 25 mg Phenergan for symptomatic management and correction of underlying abnormalities. Workup initiated including basic labs. On re-evaluation, patient [remains afebrile, HD stable.] Laboratory workup independently interpreted by me and significant for mild leukocytosis, no significant electrolyte derangement, normal renal function.. CT of the abdomen pelvis was considered, but deemed unnecessary due to history and exam.. Given patient history, exam and workup, patient's presentation most likely represents possible food poisoning. Patient care handed off to oncoming physician pending reassessment. <Cass Saldivar MD - Last Filed: 08/12/24 07:29> Vital Signs: 08/12/24 06:04 08/12/24 06:46 Temperature 99.5 F Temperature Source Oral Pulse Rate 115 H Pulse Rate [Right Radial] 104 H Respiratory Rate 16 Blood Pressure 148/88 H Blood Pressure [Right Arm] 137/88 Blood Pressure Mean [Right Arm] 104 Blood Pressure Source [Right Arm] Automatic Cuff Blood Pressure Position [Right Arm] Supine 02 Sat by Pulse Oximetry 97 97 Oxygen Delivery Method Room Air Lab Data Lab Results 08/12/24 06:20: WBC 15.0 H, RBC 4.71, Hgb 13.6, Hct 40.0, MCV 84.9, MCH 28.9, MCHC 34.0, RDW 13.2, Plt Count 290, MPV 9.0, Neut % (Auto) 93.9 H, Lymph % (Auto) 2.9 L, [place] % (Auto) 2.7, Eos % (Auto) 0.1, Baso % (Auto) 0.1, Neut # (Auto) 14.1 H, Lymph # (Auto) 0.4 L, [place] # (Auto) 0.4, Eos # (Auto) 0.0, Baso # (Auto) 0.0, Sodium 134 L, Potassium 4.2, Chloride 106, Carbon Dioxide 25, Anion Gap 7.2, BUN 17, Creatinine 0.70, Estimated Creat Clear 116, Estimated GFR 92, Est GFR ( Amer) 111, Glucose 112 H, Calcium 9.6, Magnesium 2.0, Total Bilirubin 1.1, AST 29, ALT 23, Alkaline Phosphatase 55, Total Protein 7.1, Albumin 4.4, Globulin 2.7, Albumin/Globulin Ratio 1.6 Orders (Tests/Meds): ED MEDICATIONS Generic Name Dose Route Start Last Admin Trade Name Freq PRN Reason Stop Dose Admin Sodium Chloride 1,000 mls @ 999 mls/hr 08/12/24 06:30 08/12/24 06:28 Sod Chlor 0.9% 1000ml Bag IV 08/12/24 07:30 999 mls/hr .Q1H1M CORNEL Administration Discontinued Medications Generic Name Dose Route Start Last Admin Trade Name Daniella PRN Reason Stop Dose Admin Acetaminophen 1,000 mg 08/12/24 06:25 08/12/24 06:38 Acetaminophen 500mg Tab PO 08/12/24 06:26 1,000 mg ONCE ONE Administration Promethazine HCl 25 mg 08/12/24 06:20 08/12/24 06:29 Promethazine Hcl 25mg/Ml 1ml Vial IV 08/12/24 06:21 25 mg ONCE ONE Administration Sodium Chloride 25 ml 08/12/24 06:20 08/12/24 06:29 Sodium Chloride 0.9% 25ml Bag IV 08/12/24 06:21 25 ml ONCE ONE Administration ORDERS Category Date Time Status CBC w/Auto Diff [Complete Blood Count Auto Diff] Stat Lab 08/12/24 06:20 Results CMP [Comprehensive Metabolic Panel] Stat Lab 08/12/24 06:20 Completed MAG [Magnesium] Stat Lab 08/12/24 06:20 Completed Medical Decision Narrative: 44-year-old female without significant past medical history presents for acute onset of vomiting a few hours after eating canned tomatoes.. History was obtained via interactive discussion with patient. On arrival, patient is [afebrile, hemodynamically stable, satting appropriately, alert, oriented x4, GCS 15], moving all extremities spontaneously. Full physical exam performed and significant for benign abdominal exam, moist mucous membranes Differential includes but is not limited to food poisoning, gastroenteritis, influenza. Patient was given 1 L IV fluid bolus, 25 mg Phenergan for symptomatic management and correction of underlying abnormalities. Workup initiated including basic labs. On re-evaluation, patient [remains afebrile, HD stable.] Laboratory workup independently interpreted by me and significant for mild leukocytosis, no significant electrolyte derangement, normal renal function.. CT of the abdomen pelvis was considered, but deemed unnecessary due to history and exam.. Given patient history, exam and workup, patient's presentation most likely represents possible food poisoning. Patient care handed off to oncoming physician pending reassessment. Saldivar: Upon my assumption of care patient is stable, she has tolerated oral intake, she is receiving IV fluids and the medications listed above. I agree with the assessment and plan from Dr. Baker. Patient reports she is feeling somewhat improved, nausea is controlled. I discussed discharge with her, she is comfortable with this plan and I believe that is appropriate at this time since she is tolerating oral intake and symptoms are controlled with reassuring labs. Patient has an prescription for Zofran, new prescription for Zofran was provided. She also requested prescription for Phenergan in case her symptoms are not controlled by Zofran. I discussed with her how to appropriately take these medications to avoid interaction/side effects. Phenergan and Zofran both have been prescribed to the patient for symptom management. Patient was given instructions on symptomatic management, follow up instructions, and return precautions for the emergency department. Patient indicated understanding and was discharged in stable condition. Procedures <Horace Baker MD - Last Filed: 08/12/24 07:02> Risk/Benefits of Procedure(s) Were Explained: Yes Critical Care <Horace Baker MD - Last Filed: 08/12/24 07:02> Critical Care Time Critical Care Time: No
[2024-08-12] MEDS: 0.9 % SODIUM CHLORIDE 1000ML 1,000 ML 999 ML IV (06:28)
[2024-08-12] MEDS: PROMETHAZINE HCL 25MG/ML 1ML VIAL 25 MG IV (06:29)
[2024-08-12] MEDS: SODIUM CHLORIDE 0.9% 25ML BAG 25 ML IV (06:29)
[2024-08-12] MEDS: ACETAMINOPHEN 500MG TAB 1000 MG PO (06:38)
[2024-08-12 06:39] LABS: Basophils % 0.1 % (0.1-2.0); Eosinophils % 0.1 % (0.1-12.0); Hemoglobin 13.6 g/dL (12.2-16.2); Lymphocytes # 0.4 K/mm3 (0.7-4.5); Lymphocytes % 2.9 % (10-50); Mean Corpuscular Hemoglobin 28.9 pg (27.0-31.2); Mean Corpuscular Volume 84.9 fl (81-99); Monocytes # 0.4 K/mm3 (0.1-1.0); Monocytes % 2.7 % (1.7-9.3); Neutrophils # 14.1 K/mm3 (1.8-7.8); Neutrophils % 93.9 % (37.0-80.0); Platelet Count 290 K/mm3 (142-424); Red Blood Count 4.71 M/mm3 (4.20-5.40); Red Cell Distribution Width 13.2 % (11.5-17.5)
[2024-08-12 06:41] LABS: Albumin Level 4.4 g/dl (3.5-5.0); Chloride 106 mmol/L (98-107); MANUAL DIFFERENTIAL MANUAL DIFFERENTIAL (MANUAL DIFF)
[2024-08-12 06:42] LABS: Potassium 4.2 mmoL/L (3.5-5.1); Sodium 134 mmol/L (136-145)
[2024-08-12 06:44] LABS: Alanine Aminotransferase 23 U/L (12-78); Albumin/Globulin Ratio 1.6 (1.1-1.8); Alkaline Phosphatase 55 U/L (38-126); Anion Gap 7.2 mEq/L (5-15); Aspartate Amino Transferase 29 U/L (14-36); Bilirubin,Total 1.1 mg/dl (0.2-1.3); Blood Urea Nitrogen 17 mg/dl (7-17); Carbon Dioxide 25 mmol/L (22.0-30.0); Creatinine Clearance Estimated 116 mL/min (50-200); Estimated Glomerular Filt Rate 92 ml/min (>60); GFR (African American) 111 ML/MIN (>60); Globulin 2.7 g/dL (1.3-3.2); Total Protein,Serum 7.1 g/dl (6.3-8.2)
[2024-08-12 06:45] LABS: Calcium 9.6 mg/dl (8.4-10.2); Glucose 112 mg/dl (74-100)
[2024-08-12 06:46] VITALS: BP 148/88; PULSE 115; O2SAT 97
[2024-08-12 07:00] VITALS: BP 118/76; PULSE 89; RESP 18; O2SAT 99
[2024-08-12] MEDS: ONDANSETRON 4MG ODT 4 MG SL (07:55)
[2024-08-12 08:02] VITALS: BP 122/71; PULSE 98; RESP 18; TEMP 36.9; O2SAT 98
[2024-08-12 09:52] LABS: Lymphocytes % 4 % (10-50); Monocytes % 7 % (2-9); Neutrophils % 89 % (42-76); Platelet Estimate Normal; Total Cells Counted 100
[2024-08-12 09:53] LABS: RBC Morphology Normal
== END 2024-08-12 08:12 | disposition home or self-care (01) ==
PROVIDERS: Emergency Provider Emergency Medicine; PCP Internal Medicine Adolescent Medicine
DX: R11.2 Nausea with vomiting, unspecified (principal); R10.9 Unspecified abdominal pain
CPT/HCPCS: 80053; 83735; 85007; 85025; 85027; 96361; 96374; 99283; J2550; J7030; Q0162

== ENCOUNTER 2024-11-28 20:11 | Emergency (ER) | payer OTHER, SELFPAY ==
[2024-11-28 20:20] VITALS: BP 168/92; PULSE 117; RESP 20; TEMP 37.1; O2SAT 98; BMI 25.0
[2024-11-28 20:31] VITALS: BP 157/91; PULSE 121; O2SAT 99
[2024-11-28 21:00] VITALS: BP 159/101; PULSE 105; O2SAT 97
[2024-11-28 21:15] LABS: Basophils # 0.1 K/mm3 (0-0.2); Basophils % 0.5 % (0.1-2.0); Eosinophils # 0.1 K/mm3 (0.0-0.4); Hematocrit 42.3 % (37.0-47.0); Hemoglobin 14.2 g/dL (12.2-16.2); Lymphocytes # 2.2 K/mm3 (0.7-4.5); Mean Corpuscular HGB Conc 33.6 g/dL (31.8-35.4); Mean Corpuscular Hemoglobin 28.9 pg (27.0-31.2); Mean Platelet Volume 9.5 fl (7.4-10.4); Monocytes # 0.6 K/mm3 (0.1-1.0); Monocytes % 6.5 % (1.7-9.3); Neutrophils # 6.7 K/mm3 (1.8-7.8); Neutrophils % 68.7 % (37.0-80.0); Nucleated Red Blood Cells # 0 10^3/uL; Nucleated Red Blood Cells % 0 %; Platelet Count 375 K/mm3 (142-424); Red Blood Count 4.92 M/mm3 (4.20-5.40); Red Cell Distribution Width 13.5 % (11.5-17.5); Red Cell Distribution Width-SD 42.4 fL; White Blood Count 9.7 K/mm3 (4.8-10.8)
[2024-11-28] MEDS: LACTATED RINGERS 1000ML 1,000 ML 999 ML IV (21:17)
[2024-11-28] MEDS: ACETAMINOPHEN 1,000MG/100ML VIAL 1000 MG IV (21:17)
[2024-11-28] MEDS: KETOROLAC 30MG/ML VIAL 15 MG IV (21:17)
--- NOTE | 2024-11-28 21:18 | ECG_ITS ---
APPROVED REPORT Exam: Resting ECG HR:108 bpm ECG Measurements Heart Rate 108 AXES SD 140 P 69 QRSd 77 QRS 63 QT 326 T 64 QTc 390 Conclusion Sinus tachycardia Electronically signed by : GERRY CARCAMO, 11/29/2024 19:49:36
[2024-11-28 21:29] VITALS: BP 142/91; PULSE 114; O2SAT 99
[2024-11-28 21:31] LABS: Alanine Aminotransferase 17 U/L (12-78); Albumin Level 4.7 g/dl (3.5-5.0); Albumin/Globulin Ratio 1.4 (1.1-1.8); Alkaline Phosphatase 53 U/L (38-126); Anion Gap 14.8 mEq/L (5-15); Aspartate Amino Transferase 25 U/L (14-36); Bilirubin,Total 0.7 mg/dl (0.2-1.3); Blood Urea Nitrogen 12 mg/dl (7-17); Carbon Dioxide 27 mmol/L (22.0-30.0); Chloride 101 mmol/L (98-107); Creatinine Clearance Estimated 116 mL/min (50-200); Estimated Glomerular Filt Rate 92 ml/min (>60); GFR (African American) 111 ML/MIN (>60); Globulin 3.3 g/dL (1.3-3.2); Glucose 109 mg/dl (74-100); Magnesium 2.3 mg/dl (1.6-2.3); Potassium 3.8 mmoL/L (3.5-5.1); Sodium 139 mmol/L (136-145)
--- NOTE | 2024-11-28 21:31 | [facility].EDGENADL ---
Discharge Plan Disposition Patient Disposition: Home, Self-Care Prescriptions Prescriptions: New metoclopramide HCl [Reglan] 10 mg tablet 10 mg PO Q6H PRN (Reason: nausea and vomiting) Qty: 20 0RF No Action albuterol sulfate 90 mcg/actuation HFA aerosol inhaler 1 puff INHALATION Q6H PRN (Reason: Shortness Of Breath) ondansetron 4 mg tablet,disintegrating 4 mg PO Q6H PRN (Reason: nausea and vomiting) Qty: 7 0RF promethazine 12.5 mg tablet 12.5 mg PO TID PRN (Reason: sedation) Qty: 7 0RF ondansetron 4 mg tablet,disintegrating 4 mg PO Q6H PRN (Reason: nausea and vomiting) Qty: 7 0RF promethazine 12.5 mg tablet 12.5 mg PO TID PRN (Reason: nausea and vomiting) Qty: 7 0RF tizanidine 2 mg tablet 2 mg PO DAILY Patient Comments: TAKE 1 TABLET BY MOUTH 3 TIMES DAILY NEEDED albuterol sulfate [Ventolin HFA] 90 mcg/actuation HFA aerosol inhaler 2 puff inhalation Q6H PRN (Reason: shortness of breath or wheezing) Qty: 6.7 0RF azithromycin [Zithromax] 250 mg tablet 250 mg PO UD DOSE PK Qty: 6 0RF Rx Instructions: Take two (2) tablets today, then one (1) tablet days #2 thru #5 methylprednisolone 4 mg Tablets,Dose Pack 4 mg PO DIRECTED 6 Days Qty: 21 0RF Rx Instructions: Take 1 pack as directed for 6 days Referrals Follow up/Referrals: Marcial Crockett MD [Primary Care Provider] - See instructions Activity Restrictions/Add. Instructions Additional Instructions/Restrictions: If you begin having migraine auras again, take 800 mg of magnesium oxide, 1000 mg acetaminophen, 600 mg of ibuprofen, 10 mg of metoclopramide (Reglan) drink plenty of water and take a nap. Call your family doctor to establish care for this visit to the emergency department and schedule follow-up within 48 hours to ensure improvement. If you have any worsening of your condition or any other concerning signs or symptoms, return to the emergency department or your primary care doctor for further evaluation. Clinical Impressions Clinical Impression: Migraine Qualifiers: Migraine type: unspecified Status migrainosus presence: without status migrainosus Intractability: not intractable Qualified Code(s): G43.909 - Migraine, unspecified, not intractable, without status migrainosus Print Language Print Language: Swedish Discharge ED Provider: Chay Coon General Adult HPI General Chief complaint: Eye Problems Stated complaint: eye sight not right,lightheaded,dizziness Time Seen by Provider: 11/28/24 20:21 Mode of Arrival: Ambulatory Source of Information: Patient Description of Symptoms (Recalled from ER Triage Doc. by RN): Patient presents to ED with eye sight problems. patient states it started 2 hours ago describes as blurry vision, seeing floaters, and some dizziness. Patient states she had this happen very similar about a year ago. History of Present Illness HPI narrative: Please note that above description of symptoms, in this electronic medical record under categorization of recalled from ER triage doctor by RN are reflective of an initial nursing assessment, however, is not reflective of my full history and physical exam that was personally taken and clarified. Consequentially, this preceding description of symptoms, which may include the patient's categorized chief complaint in the EMR, do not reflect my personal clinical impression, and the ultimate description of history of present illness and patient stated complaints should be deferred to this section of the note. Unless stated otherwise or congruent with this section of the note, additional signs, symptoms, or incongruence should be interpreted as inaccurate with my clinical impression. Related Data Home Medications ?Medication ?Instructions ?Recorded ?Confirmed albuterol sulfate 90 mcg/actuation 1 puff inhalation Q6H PRN 05/02/18 09/11/19 aerosol inhaler Shortness Of Breath tizanidine 2 mg tablet 2 mg PO DAILY 07/21/24 07/21/24 Previous Rx's ?Medication ?Instructions ?Recorded albuterol sulfate 90 mcg/actuation 2 puff inhalation Q6H PRN 07/21/24 aerosol inhaler (Ventolin HFA) shortness of breath or wheezing #6.7 grams azithromycin 250 mg tablet 250 mg PO UD DOSE PK #6 tabs 07/21/24 (Zithromax) methylprednisolone 4 mg tablets in 4 mg PO DIRECTED 6 days #21 tabs 07/21/24 a dose pack ondansetron 4 mg disintegrating 4 mg PO Q6H PRN nausea and 08/12/24 tablet vomiting #7 tabs ondansetron 4 mg disintegrating 4 mg PO Q6H PRN nausea and 08/12/24 tablet vomiting #7 tabs promethazine 12.5 mg tablet 12.5 mg PO TID PRN nausea and 08/12/24 vomiting #7 tabs promethazine 12.5 mg tablet 12.5 mg PO TID PRN sedation #7 tabs 08/12/24 metoclopramide HCl 10 mg tablet 10 mg PO Q6H PRN nausea and 11/28/24 (Reglan) vomiting #20 tabs Allergies Allergy/AdvReac Type Severity Reaction Status Date / Time nalbuphine (NALBUPHINE) Allergy Mild Verified 12/10/22 16:43 Penicillins (PENICILLINS) Allergy Mild Verified 12/10/22 16:43 tramadol (TRAMADOL) Allergy Mild Verified 12/10/22 16:43 PFSH PFS Disclaimer: The information contained in this section may have been updated after the patient was seen, as this information can be updated by other users. Social History Smoking Status: Never smoker alcohol intake: never current occupational status: employed Travel in the last 8 weeks: Inside the [place] Have you lived/traveled outside [place] in past 30 days?: No Contact w/someone who lives/traveled outside [place] past 30 days?: No Exposure to someone with infectious disease in past 14 days?: No Do you have a fever (greater than 100.4 F or 38 C)?: No Have you tested positive for COVID-19: No Exposed to someone with COVID-19 in past 14 days?: No Do you have a sore throat?: No Do you have a cough?: No Do you have any weakness?: No Do you have any diarrhea?: No Are you experiencing any unusual bleeding?: No Do you have any muscle aches/pain?: No Do you have any abdominal pain?: No Are you experiencing loss of taste or smell?: No Other Medical History Have you received the Flu Vaccine for this season: No Have you received the Pneumonia Vaccine: No ROS Obtained: Yes All systems reviewed & no additional complaints except as documented Physical Exam General General appearance: alert and in no apparent distress Head Head exam: atraumatic and normocephalic Eye Eye exam: Present normal appearance, PERRL and EOMI Neck Neck exam: Present normal inspection, full ROM and trachea midline Respiratory Respiratory exam: Present normal lung sounds bilaterally; Absent respiratory distress, wheezes, stridor, accessory muscle use or prolonged expiratory phase Cardiovascular Cardiovascular exam: Present regular rate, normal rhythm and other (Pulses equal symmetric in upper and lower extremities) Abdominal Exam Abdominal exam: Present soft; Absent distention, tenderness or pulsatile mass Extremities Exam Extremities exam: Absent edema Neurological Exam Neurological exam: Present alert, oriented X3 and CN II-XII intact; Absent motor sensory deficit Skin Skin exam: Present warm and dry; Absent diaphoresis or erythema Medical Decision Making Medical Records Medical records reviewed: Yes I reviewed the patient's medical records. Screening: Per USPSTF and CDC recommendations, given the prevalence of disease in our region, it is our hospital?s policy to screen for HIV and viral Hepatitis for all patients aged 18 and over and those with ongoing risk factors. Warner Inquiry Pt receiving controlled substance: No Warner was queried for this patient: No Vital Signs: 11/28/24 20:20 11/28/24 20:31 11/28/24 21:00 Temperature 98.7 F Temperature Source Oral Pulse Rate 121 H 105 H Pulse Rate [Right Brachial] 117 H Respiratory Rate 20 Blood Pressure 157/91 H 159/101 H Blood Pressure [Right Arm] 168/92 H Blood Pressure Mean [Right Arm] 117 Blood Pressure Source [Right Arm] Automatic Cuff Blood Pressure Position [Right Arm] Sitting 02 Sat by Pulse Oximetry 98 99 97 Oxygen Delivery Method Room Air 11/28/24 21:29 Temperature Temperature Source Pulse Rate 114 H Pulse Rate [Right Brachial] Respiratory Rate Blood Pressure 142/91 H Blood Pressure [Right Arm] Blood Pressure Mean [Right Arm] Blood Pressure Source [Right Arm] Blood Pressure Position [Right Arm] 02 Sat by Pulse Oximetry 99 Oxygen Delivery Method Lab Data Lab Results 11/28/24 20:25: WBC 9.7, RBC 4.92, Hgb 14.2, Hct 42.3, MCV 86.0, MCH 28.9, MCHC 33.6, RDW 13.5, Plt Count 375, MPV 9.5, Neut % (Auto) 68.7, Lymph % (Auto) 23.0, [place] % (Auto) 6.5, Eos % (Auto) 1.0, Baso % (Auto) 0.5, Neut # (Auto) 6.7, Lymph # (Auto) 2.2, [place] # (Auto) 0.6, Eos # (Auto) 0.1, Baso # (Auto) 0.1, Sodium 139, Potassium 3.8, Chloride 101, Carbon Dioxide 27, Anion Gap 14.8, BUN 12, Creatinine 0.70, Estimated Creat Clear 116, Estimated GFR 92, Est GFR ( Amer) 111, Glucose 109 H, Calcium 10.0, Magnesium 2.3, Total Bilirubin 0.7, AST 25, ALT 17, Alkaline Phosphatase 53, Troponin I < 0.01, Total Protein 8.0, Albumin 4.7, Globulin 3.3 H, Albumin/Globulin Ratio 1.4, HCV Ab RADHA w/Rflx PCR Qn Negative, HIV Ag/Ab Combo Qual Negative 11/28/24 20:25 11/28/24 20:25 Orders (Tests/Meds): ED MEDICATIONS Discontinued Medications Generic Name Dose Route Start Last Admin Trade Name Freq PRN Reason Stop Dose Admin Acetaminophen 1,000 mg 11/28/24 21:08 11/28/24 21:17 Acetaminophen 1,000mg/100ml Vial IV 11/28/24 21:09 1,000 mg ONCE ONE Administration Lactated Ringer's 1,000 mls @ 999 mls/hr 11/28/24 21:08 11/28/24 21:17 Lactated Ringer's 1000 Ml Bag IV 11/28/24 22:08 999 mls/hr .Q1H1M ONE Administration Ketorolac Tromethamine 15 mg 11/28/24 21:08 11/28/24 21:17 Ketorolac 30mg/Ml Vial IV 11/28/24 21:09 15 mg ONCE ONE Administration ORDERS Category Date Time Status POCUS Point of Care (ER Only) Stat Exams 11/28/24 20:21 Completed CBC w/Auto Diff [Complete Blood Count Auto Diff] Stat Lab 11/28/24 20:25 Completed CMP [Comprehensive Metabolic Panel] Stat Lab 11/28/24 20:25 Completed HIV Combo Stat Lab 11/28/24 20:25 Completed Hepatitis C Ab Qual. W/ RFX Stat Lab 11/28/24 20:25 Completed Magnesium Stat Lab 11/28/24 20:25 Completed Trop I [Troponin I] Stat Lab 11/28/24 20:25 Completed Troponin I Q3H Lab 11/29/24 00:15 Ordered Troponin I Q3H Lab 11/29/24 03:15 Ordered Medical Decision Narrative: 44-year-old female presenting with multiple complaints. She states that she started having visual disturbances a couple days prior to this. Floaters, wavy lines, started. No loss of vision. She does have a history of what sounds to be like a complex migraine with loss of vision, she did not have that this time. Patient states that she has a pressure in her head and is feeling lightheaded as well. No vomiting, fevers, chills, diplopia, neurologic deficits otherwise. No family history of neurological abnormalities. No trauma. Patient has not taken any medications to make the pain better. she is specifically describing it as a pressure and not a pain. History was obtained via conversation with patient and family. On arrival, patient hemodynamically stable, alert, oriented x4, appropriate, GCS 15, moving all extremities spontaneously, pupils equal and reactive to light. Full physical exam performed and significant for very clinically well-appearing female who is in no acute distress, but appears anxious. EOMs intact, denying diplopia. Grossly neurologically intact with stroke score 0. Normal rate and rhythm. Differential includes migraine, complex migraine, optical migraine, less likely to be increased intracranial pressure, retinal detachment/tear, intracranial mass, CVA, intracranial bleed, cerebral DVT, among others. Patient placed on continuous cardiac monitoring and continuous pulse ox with initial blood pressure 168/92, heart rate 117, saturation 98% on room air. Independent interpretation of EKG shows sinus tachycardia 108 bpm with DC 140, QRS 77, QTc 390. Normal axis, no acute ischemic change. Extremely protracted conversation had with patient and family members regarding my recommendation of migraine cocktail. Patient states she does not like taking medication and would not like to try medication at this time. She states she is not having pain, only pressure. Frustrating conversation had over prolonged time, patient wishing to have diagnosis made prior to receiving treatment. It was explained that part of the diagnostic process is giving medications targeted at certain processes as not all pathology is found on imaging or labs. Ultimately, patient agreeable to ultrasound, labs, fluids, Toradol, acetaminophen. Reglan, magnesium, steroid offered, but patient declined. Bedside [id number] ultrasound was performed on bilateral eyes. Quiet intraocular findings, normal bilateral optic nerves. Workup independently interpreted and significant for nonactionable hematologic labs. Reevaluation, patient resting comfortably. Very pleasant conversation was had with patient and . She stating that she feels a lot better, not entirely gone, but trending downward. Feels comfortable going home. Given patient presentation, workup, history, this most likely represents migraine disorder. Because patient at baseline without signs or symptoms of clinical decompensation, deemed appropriate for discharge. Results were relayed to patient who voiced understanding and were agreeable to outpatient management and follow up. I discussed my clinical impression with patient and answered all questions. At this time, the evidence for any other entities in the differential is insufficient to warrant any further testing or ED observation. This was explained as well. Advisory was given that persistent or worsening symptoms require further evaluation. I confirmed the understanding of this discussion. Certified Teacher Assistant disclaimer Much of this encounter note is an electronic vegetable sorter spoken language to printed text. Electronic vegetable sorter of the spoken language may permit errors. Although I have reviewed the note, some errors may still exist. Procedures Limited Ultrasound Indication:: Limited ocular ultrasound Indication: Vision changes, head pressure Identified structures: -Bilateral eyes Findings: Right eye: Retina: Normal Lens: Normal Vitreous body: Anechoic Optic nerve sheath diameter (mm): 3.1 mm Foreign body: Absent Left eye: Retina: Normal Lens: Normal Vitreous body: Anechoic Optic nerve sheath diameter (mm): 3.1 mm Foreign body: Absent Impression: Normal bilateral ocular ultrasounds with normal optic nerve sheath diameters Images were saved to permanent archive The study was technically adequate CPT 07048-91 This study was performed by me, and I personally interpreted all images/videos. Based on my clinical judgement, these images were adequate and not necessitate further imaging. Critical Care Critical Care Time Critical Care Time: No
[2024-11-28 21:43] LABS: Troponin I < 0.01 ng/ml (0.00-0.034)
[2024-11-28 22:11] LABS: HIV Combo NEGATIVE (Negative)
[2024-11-28 22:19] LABS: Hepatitis C Ab Qual. W/ RFX NEGATIVE (Negative)
[2024-11-28 22:37] VITALS: BP 127/77; PULSE 84; RESP 18; TEMP 37.1; O2SAT 97
== END 2024-11-28 22:41 | disposition home or self-care (01) ==
PROVIDERS: Emergency Provider Emergency Medicine; PCP Internal Medicine Adolescent Medicine
DX: G43.909 Migraine, unspecified, not intractable, without status migrainosus (principal); R00.0 Tachycardia, unspecified; Z11.59 Encounter for screening for other viral diseases; Z11.4 Encounter for screening for human immunodeficiency virus [HIV]
CPT/HCPCS: 96361; 96374; 96375; 99284; 80053; 83735; 84484; 85025; 86803; 87389; 93005; J0131; J1885; J7120

== ENCOUNTER 2025-03-26 03:49 | Emergency (ER) | payer OTHER, SELFPAY ==
--- OUTSIDE RECORDS SUMMARY | 2024-06-07 07:15 | XMS_ITS ---
Author Organization [facility] Address [address] [place] [id number] Care Team Providers Care Applications Architect Name Role Phone Ly Ayala Primary Care Provider Enrique Brower [phone] Allergies Allergen (clinical drug ingredient) Drug/Non Drug Allergy documented on EMR Reaction Allergy Type Onset Date Status HYDROcodone-Acetami nophen stomach upset Drug Allergy Active Penicillin Unknown Drug Allergy Active Results Component Value Reference Range Notes P-Basic Metabolic Panel (BMP ) Reviewed date:06/12/2024 04:49:04 PM Interpretation:Normal Performing Lab: Notes/Report: Test performed by [facility] [address] [place], [place] [address] [place] , [place] [address] Grey Faith MD, Pass Worker CLIA: [id number] Sodium 139 135-145 mmol/L Potassium 5.1 3.5-5.3 mmol/L Chloride 102 97-108 mmol/L CO2 24 22-32 mmol/L Glucose 94 65-99 mg/dL BUN 11 6-20 mg/dL Creatinine 0.89 0.50-1.00 mg/dL Calcium 10.3 8.6-10.4 mg/dL eGFR by Creatinine 83 >59 mL/min/1.73m2 P-Lipid Panel Reviewed date:06/12/2024 04:49:04 PM Interpretation:Normal Performing Lab: Notes/Report: Test performed by [facility] [address] [place], [place] [address] , [address], [place] [address] Grey Faith MD, Pass Worker CLIA: [id number] Cholesterol 179 <200 mg/dL Triglycerides 55 <150 [...] Interpretation:Normal Performing Lab: Notes/Report: Test performed by [facility], [address] , [place] [address] Grey Faith MD, Pass Worker CLIA: [id number] Vitamin D 25-Hydroxy 35.4 30.0-100.0 ng/mL Interpretation [...] Status Risk Notes Problem Disorder of neck (931167258) Disorder of neck (M53.82) Active confirmed Problem Vitamin D deficiency (02583608) Vitamin D deficiency (E55.9) Active confirmed Vital Signs Blood pressure systolic 124 mm Hg 06/07/20 24 Blood pressure diastolic 80 mm Hg 024 Heart Rate 82 /min 06/07/2024 Height 66 in 06/07/2024 Weight 153 lbs 06/07/2024 BMI 24.69 kg/m2 06/07/2024 Encounters Encounter Location Date Provider Diagnosis [facility] [address] [facility] [address] [place] [phone] 06/07/2024 Enrique [place] Disorder of neck M53 .82 ; Muscle [...] via phone to repo rt progress, Reason: Progress Notes * JOYCE ROSAB: 2 (44 yo F)Acc No.[id number]:06/07/2024 Progress Notes Patient: SANAM FOSTER Provider: Loulou Brower M.D. :1980 A ge:43 Y S ex:Female Date:06/07/2024 Address[id number] Pcp:Ly Ayala Subjective: * Chief Complaints: * [...] care, previously seen by Dr. Kumar at [facility] in [place], [place]. * ROS: D ERMATOLOGY: no R [...] 35.4 30.0-100.0 - ng/mL * Enrique Brower [place] 06/09/2024 10:00:12 PM > Lab results are [...] 83 >59 - mL/min/1.73m2 * Enrique Brower [place] 06/09/2024 10:00:12 PM > Lab results are [...] * Images: Billing Information: * Visit Code: 92621 Office Visit, New Pt., Level 4. * Procedure Codes: * Electronic signature of Paige Brower MD on 03/26/2025 at 04:22 AM EDT Sign off status: Pending * Provider: Loulou Brower M.D. Date: Generated for Andrew sheets/Marcos/Barak on: 0 03/26/2025 04:22 AM EDT History and Physical Notes * HPI (History [...] care, previously seen by Dr. Kumar at [facility] in [place], [place] Examination Category Sub-Category Detail Notes Category [...]
--- OUTSIDE RECORDS SUMMARY | 2025-03-12 16:16 | XMS_ITS | Encounter Summary ---
Author Organization [place] [address] Care Team Providers Care Child Development Consultant Name Role Phone Marcial Boyd MD Unavailable [phone] Enrique Kumar MD Primary Care Provider [phone] Reason for Visit * Physical Therapy (Routine) - Authorized Specialty Diagnoses / Procedures Referred By Contac t Referred To Contact Physical Therapy Diagnoses Osteoarthritis of spine with radiculopathy, cervical region Lana Ford, [employer] REP [address] [place] [address] Phone: tel: fax: [facility] [place] [address] Phone: tel: fax: Referral ID Status Reason Start Date Expiration Date V isits Requested Visits Authorized [id number] Authorized 01/20/2025 01/20/2026 99 99 Encounter Details Date Type Department Care Team (Latest Contact Info) Description 03/12/2025 4:16 PM EDT - 03/12/2025 11:59 PM EDT Hospital Encounter [facility] Physical Therapy [address] [place] [id number] John Contreras PT Cervical radiculopathy (Primary Dx) Discharge Disposition: Home or Self Care Social History Tobacco Use Types Packs/Day Years Used Date Smoking Tobacco: Former Cigarettes 1 10 1 09/26/2002 - 07/26/2013 Smokeless Tobacco: Never Comments:quit in 2010, smoke d for 10 years Alcohol Use Standard Drinks/Week Comments No 0 (1 standard drink = 0.6 oz pur e alcohol) Overall Financial Resource Strain (CARDIA) Answe r Date Recorded How hard is it for you to pa y for the very basics like food, housing, medical care, and heating? Somewhat hard 05/25/2020 PHQ-2 Answer Date Recorded PHQ-2 Total Score 0 11/17/2023 Hunger Vital Sign Answer Date Recorded Within the past 12 months, y ou worried that your food would run out before you got the money to buy more. Never true 05/25/20 20 Within the past 12 months, t he food you bought just didn't last and you didn't have money to get more. Never true 05/25/2020 PRAPARE - Transportation Answer Date Re corded In the past 12 months, has l ack of transportation kept you from medical appointments or from getting medications? No 12/2019 In the past 12 months, has l ack of transportation kept you from meetings, work, or from getting things needed for daily living? 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 Not on file Not on file Not on file documented as of this encounter Functional Status * Is the person deaf or does he/she have serious difficulty hearing? Answer Date of Assessment Author No 03/27/2021 10:21 AM EDT Natividad Valdez RMA * Is the person blind or does he/she have serious difficulty seeing even when wearing glasses? Answer Date of Assessment Author No 03/27/2021 10:21 AM EDT Natividad Valdez RMA * Does this person have serious difficulty walking or climbing stairs? Answer Date of Assessment Author No 03/27/2021 10:21 AM EDT Natividad Valdez RMA * Does this person have difficulty dressing or bathing? Answer Date of Assessment Author No 03/27/2021 10:21 AM EDT Natividad Valdez RMA * Because of a physical, mental or emotional condition, does this person have difficulty doing errands alone such as visiting a doctor's office or shopping? Answer Date of Assessment Author No 03/27/2021 10:21 AM EDT Natividad Valdez RMA documented as of this encounter Mental Status * Because of a physical, mental or emotional condition, does this person have serious difficulty concentrating, remembering or making decisions? Answer Entry Date Author No 03/27/2021 10:21 AM EDT Natividad Valdez RMA documented in this encounter Medications at Time of Discharge albuterol (PROVENTIL HFA;VENTOLIN HFA) 90 mcg/actuation Inhl HFA Aerosol Inhaler Inhale 2 Puffs into the lungs 0800, 1200, 1600, 2000. 1 Each 1 12/21/2023 albuterol (PROVENTIL) 2.5 mg /3 mL (0.083 %) Inhl Solution for NebulizationIndi cations:Moderate persistent asthma without complication,Sin us pressure Take 3 mL by nebulization every 4 hours as needed for Wheezing. 180 mL 2 11/20/2023 Cholecalciferol, Vitamin D3, 50 mcg (2,000 unit) Oral CapsuleIndicatio ns:Sinus pressure Take by mouth. fluticasone propionate (FLONASE) 50 mcg/actuation Nasl Holton, SuspensionIndica tions:COVID-19 virus infection,Histor y of asthma 1 Holton by Nasal route daily. 1 Each 10/01/2024 loratadine (CLARITIN) 10 mg Oral Tablet Take 10 mg by mouth daily. OYSTER SHELL CALCIUM-VIT D3 500 mg-5 mcg (200 unit) Oral TabletIndication s:Vitamin D deficiency TAKE ONE TABLET BY MOUTH TWICE DAILY. 30 Tablet 4 07/12/2023 documented as of this encounter Discharge Disposition Disposition Code Departure Means Destination Home or Self Care documented in this encounter Progress Notes * Provider, Unknown - 03/12/2025 5:56 PM EDT * Willi Carvajal - 03/12/2025 5:40 PM EDT Program_ID:[id number] Access Code: [email or web address] URL: [email or web address] Date: 03-12-2025 Prepared By: John Contreras Program Notes Exercises - Supine Chin Tuck with Towel - 1 x daily - 7 x weekly - 3 sets - 10 reps - Supine Shoulder Horizontal Abduction with Resistance - 1 x daily - 7 x weekly - 3 sets - 10 reps - Supine Shoulder External Rotation with Resistance - 1 x daily - 7 x weekly - 3 sets - 10 reps * John Contreras, PT - 03/12/2025 4:30 PM EDT Images from the original note were not included. Physical Therapy Evaluation Patient Name: Preeti Yi : 1980 Visit #: 1 Onset Date: 03/12/23 Diagnosis: Osteoarthritis of spine with radiculopathy, cervical region Restrictions/Precautions: possible LATEX ALLERGY Physician: Logan BOSE Follow Up: prn Evaluation Date: 03/12/2025 Reassessment Due: 04/12/25 Primary Insurance: [employer] / [facility] (R/[facility]R [id number] Secondary Insurance: Insurance Authorization: AMB REFERRAL TO PHYSICAL THERAPY Closed (01/20/2025-01/20/2026) Visits Requested Visits Authorized Visits Completed Visits Scheduled 1 1 1 -- Details Referral ID: [id number] Authorization Status Reason: -- Authorization Comments: -- Referred To: AUSTIN GARCIA PT Referred By: Lana Ford APRN at [facility]: 01/20/[facility]25 Referral Reasons: -- Referral Order: AMB REFERRAL TO PHYSICAL THERAPY Time In/Out: 4:32/5:35 Timed Treatment Minutes: Manual therapy techniques 20 minutes Total Timed Code Treatment Minutes: 20 Untimed Treatment Minutes: Hot/cold packs and PT Eval Total Treatment Minutes: 63 This evaluation to serve as D/C summary if the patient doesn't return for further treatment. Subjective: Preeti Yi is a 44 y.o. female referred by Lana Ford APRN to outpatientPhysical Therapy with a primary diagnosis of: Osteoarthritis of spine with radiculopathy, cervical region History of Injury/Mechanism of Inury: insidious Functional Deficits Since Injury: (B) UE Pain: Current Pain Level: 3-9/10 Location: neck and (B) UE Description: Pain is described as aching, dull, hot, sharp, shooting, uncomfortable, variable intensity, and with paresthesia Increases Pain: positional Decreases Pain: ice, OTC NSAIDS, rest, acetaminophen, and change of position Sensation/Neurovascular Numbness, Tingling, Burning, and pain Diagnostic Tests: X-rays Past Medical History: Diagnosis Date Anxiety Asthma diagnosed as an adult. Family history of heart disease 12/25/2017 Ovarian cyst Vocal cord polyps Past Surgical History: Procedure Laterality Date LAPAROSCOPY for diagnostic laparoscopy for ovarian cyst. OVARIAN CYST REMOVAL 3 surgeries Current Outpatient Medications Medication Sig Dispense Refill albuterol (PROVENTIL HFA;VENTOLIN HFA) 90 mcg/actuation Inhl HFA Aerosol Inhaler Inhale 2 Puffs into the lungs 0800, 1200, 1600, 2000. 1 Each 1 albuterol (PROVENTIL) 2.5 mg /3 mL (0.083 %) Inhl Solution for Nebulization Take 3 mL by nebulization every 4 hours as needed for Wheezing. 180 mL 2 Cholecalciferol, Vitamin D3, 50 mcg (2,000 unit) Oral Capsule Take by mouth. fluticasone propionate (FLONASE) 50 mcg/actuation Nasl Holton, Suspension 1 Holton by Nasal route daily. 1 Each 0 loratadine (CLARITIN) 10 mg Oral Tablet Take 10 mg by mouth daily. OYSTER SHELL CALCIUM-VIT D3 500 mg-5 mcg (200 unit) Oral Tablet TAKE ONE TABLET BY MOUTH TWICE DAILY. 30 Tablet 4 No current facility-administered medications for this encounter. Allergies: Penicillins Have you received any Speech or Physical therapy this year? [] Yes [x] No Are you currently receiving any Home Health services? [] Yes [x] No Any problems with speech, communication, memory? [] Yes [x] No Barriers to learning? [] Yes [x] No Recent falls? [] Yes [x] No How would you rate your overall health? [] Excellent [x] Good [] Fair [] Poor Social/Function: branch officer Recreational Activities: gardening Living situation: Patient Goals: Decrease pain and Improve activities of daily living (dress, house cleaning, laundry, etc.) Observation: Posture: forward head, protracted shoulders Objective: FOTO Score & PSFS FOTO??: (1-100) Initial 03/12/2025 Re-Assess Score (Predicted) 53 (66) PSFS: Patient will be able to... (0-10) . Sit all day in same position right arm goes numb 3 Stand or turn head 3 . Sleeping certain positions 3 Treatment Evaluation. AROM: Flex 50 Ext 45 R rot 45 L rot 40 R SB 10 LSB 10 Seated vertebral artery test: negative Program_ID:[id number] Access Code: [email or web address] URL: [email or web address] Date: 03-12-2025 Prepared By: John Contreras Program Notes Exercises - Supine Chin Tuck with Towel - 1 x daily - 7 x weekly - 3 sets - 10 reps - Supine Shoulder Horizontal Abduction with Resistance - 1 x daily - 7 x weekly - 3 sets - 10 reps - Supine Shoulder External Rotation with Resistance - 1 x daily - 7 x weekly - 3 sets - 10 reps Cold pack to neck and upper back x 20 minutes patient semi-reclined HEP Response to HEP instruction/patient education: Instruction/patient education, Verbalized understanding, Returned demonstration Response to treatment: Decreased pain Assessment Preeti Yi presents with signs and symptoms consistent with cervical pain. Functional impairments and activity limitations include: adls. Pt would benefit from skilled physical therapy servicesin order to address Functional Mobility, Pain, and Strength. Rehab Potential: [x] Good [] Fair [] Poor Goals Short Term Goals: (set for 2 weeks) Update/Status Patient will be independent with HEP in order to promote long-term health and reduce risk for injury. [x] Unmet [] Progressing [] Met Patient's cervical AROM will increase to WNLs to allow for safe return to functional adls without issue. [x] Unmet [] Progressing [] Met Database Admin Goals: (set for 8 weeks) Update/Status Patient's FOTO score will increase to 66 noting an increase in overall function. [x] Unmet [] Progressing [] Met Patient's PSFS score on functional adls will improve from 3/10 to 8-10/10, noting an improvement infunction that is important to patient's quality of life. [x] Unmet [] Progressing [] Met NDI to improve from 31.9 [x] Unmet [] Progressing [] Met Pt will report no higher than 2/10 pain with functional activities for the duration of 1 week in order to perform functional adls. [x] Unmet [] Progressing [] Met Patient will demonstrate improved understanding of body mechanics by vocalizing 2 principles taughtin PT: seated and standing posture in order to reduce potential for future injury. [x] Unmet [] Progressing [] Met Plan [x] Continue per plan of care [] Alter current plan (see comments) [x] Plan of care initiated [] Hold pending MD visit [] Discharge Comments: This note to serve as a discharge if the patient does not return. Patient will be seen 2 times per week for 8 weeks. Treatments to consist of Therapeutic exercise 11737, Patient education, Electrical stimulation (unattended) 59052, Cryotherapy 81470, Moist heat 88715, and Traction 12664. Patient present with co-morbidities of pulmonary disease, musculoskeletal conditions, and anxiety/ depression and personal factors of N/A that may impact patient/family's ability to Work, Attend social activities, Perform ADLs, and Engage in community. During today's evaluation, he/she presented with problem areas in musculoskeletal system, cardiovascular/ pulmonary system, activity limitations, and participation restriction that are impacting functional activities and participation (see objective measures for further detail). Due to increasing/decreasing radicular symptoms and indicated course of physical therapy, the patient's presentation is evolving at this time. This patient presented today with high complexity. Reference Chart: Co-morbidities & Personal Factors Body system elements Presentation Clinical Decision Making Low Evaluation 0 1-2 Stable / Predictable Low Moderate Evaluation 1-2 3 or more Evolving/ Changing Moderate High Evaluation 3 or more 4 or more Unstable/ Unpredictable High Signature: John Contreras, PT Date: 03/12/2025 documented in this encounter Consult Notes * John Contreras, PT - 03/12/2025 4:30 PM EDT Auto-generated from [employer] Functional Status MeasuresIntake ScoreInterpretation of FS Scores/Stages Value Patient's Physical FS Primary [id number]'s intake functional measure is 53. Risk Adjusted Statistical [id number] the patient's risk-adjustment variables, like-patients nationally had a FS score of 59 Risk-Adjustment Criteria Care Type: OrthopedicCondition: NeckSeverity: Moderate (Intake FS: 53)Gender: Other/Unavailable Age: 44Acuity: Over 6 monthsSurgicalCode: Not ApplicableSurgeries: None Medication: NoPrev Treatment: NoSpecific Comorbidities: 12 Rehabilitation Resource PredictorPredicted Value Points of Physical FS Qifear19 Discharge FS Score66 Visits per Aeewbmg70 Duration in Days50 Average Satisfaction Score97.0% Interpretation of Predicted Value Given this patient???s risk-adjustment variables, and the actual Intake FS score, FOTO predicts this patient will experience at least an increase in function of 13 points (to 66 or higher) Patient Scores Tohbxs76 Patient responses to FOTO Neck (Primary) were as follows Activity (Question) Response at Intake Status Predicted Sitting performing light desk work for 8 hoursModerate difficulty---- Moving your head quickly, such as following a loud noiseModerate difficulty---- Turning to look behind you to drive a carModerate difficulty---- Looking up to see a birdModerate difficulty---- Patient responses to Demographics were as follows AttributeAnswerPatient reports other health conditions asAsthma, Back pain, SvkeqxcxsCER99.8 (Height: 66 inches, Weight: 160 lbs)Exercise prior to onsetPatient completed 20 minutes of exercise seldom or neverPrescription medicinePatient is not taking prescription medicine for this conditionSurgeryPatient reports no surgeries for this primary condition Patient responses to PSFS were as follows AttributeAnswerActivity 1: Sit all day in same position right arm goes [id number] 2: Stand or turn [id number] 3: Sleeping certain positions 3 documented in this encounter Plan of Treatment Upcoming Encounters Date Type Department Care Team (Late st Contact Info) Description 03/26/2025 5:00 PM EDT Appointment [facility] Physical Therapy [address] [place] [address] [id number] Francisco J Lee PTA 04/02/2025 5:00 PM EDT Appointment [facility] Physical Therapy [address], [place] [address] Francisco J Lee PTA 04/04/2025 4:00 PM EDT Appointment [facility] [address], [place] [address] Lana Ford APRN [address] [place] [address] Scheduled Referrals Name Type Priority Associated Diagnoses Orde r Schedule AMB REFERRAL TO PHYSICAL THERAPY Outpatient Referral Routine Osteoarthritis of spine with radiculopathy, cervical region Ordered: 01/20/2025 documented as of this encounter Goals Goal Patient Goal Type Associated Problems Recent Progress Patient-Stated? Author Maintain a healthy diet, exercise regularly and maintain an ideal body weight General No Mackenzie Mullen CCMA Stay Tobacco Free Lifestyle No Melisa Mckeon APRN documented as of this encounter Visit Diagnoses Diagnosis Cervical radiculopathy- Primary Brachial neuritis or radiculitis nos documented in this encounter Care Teams Child Development Consultant Relationship Specialty Start Date End Date Enrique Kumar MD [address] [place] [id number] PCP - General Internal Medicine 10/19/22 Marcial Boyd MD [address] [place] [address] [address] [place] [id number] Internal Medicine-Cardiovascular Disease 07/28/20 documented as of this encounter
[2025-03-26] VITALS (10 sets, daily range): BP systolic 129–161; BP diastolic 76–110; PULSE 87–125; RESP 12–26; TEMP 36.4–36.6; O2SAT 97–100; BMI 25.8
--- NOTE | 2025-03-26 03:52 | ECG_ITS ---
APPROVED REPORT Exam: Resting ECG HR:111 bpm ECG Measurements Heart Rate 111 AXES NJ 152 P 74 QRSd 63 QRS 61 QT 292 T 61 QTc 358 Conclusion SINUS TACHYCARDIA ABNORMAL RHYTHM ECG UNCONFIRMED REPORT Electronically signed by : JONY JEWELL, 03/26/2025 08:48:50
--- NOTE | 2025-03-26 04:12 | ED_ITS ---
Discharge Plan Disposition Patient Disposition: Home, Self-Care Prescriptions Prescriptions: New meclizine 25 mg tablet 25 mg PO TID PRN (Reason: dizziness) Qty: 30 0RF ondansetron HCl 4 mg tablet 4 mg PO Q8H PRN (Reason: nausea and vomiting) 5 Days Qty: 30 0RF No Action albuterol sulfate 90 mcg/actuation HFA aerosol inhaler 1 puff INHALATION Q6H PRN (Reason: Shortness Of Breath) ondansetron 4 mg tablet,disintegrating 4 mg PO Q6H PRN (Reason: nausea and vomiting) Qty: 7 0RF promethazine 12.5 mg tablet 12.5 mg PO TID PRN (Reason: sedation) Qty: 7 0RF ondansetron 4 mg tablet,disintegrating 4 mg PO Q6H PRN (Reason: nausea and vomiting) Qty: 7 0RF promethazine 12.5 mg tablet 12.5 mg PO TID PRN (Reason: nausea and vomiting) Qty: 7 0RF metoclopramide HCl [Reglan] 10 mg tablet 10 mg PO Q6H PRN (Reason: nausea and vomiting) Qty: 20 0RF tizanidine 2 mg tablet 2 mg PO DAILY Patient Comments: TAKE 1 TABLET BY MOUTH 3 TIMES DAILY NEEDED albuterol sulfate [Ventolin HFA] 90 mcg/actuation HFA aerosol inhaler 2 puff inhalation Q6H PRN (Reason: shortness of breath or wheezing) Qty: 6.7 0RF azithromycin [Zithromax] 250 mg tablet 250 mg PO UD DOSE PK Qty: 6 0RF Rx Instructions: Take two (2) tablets today, then one (1) tablet days #2 thru #5 methylprednisolone 4 mg Tablets,Dose Pack 4 mg PO DIRECTED 6 Days Qty: 21 0RF Rx Instructions: Take 1 pack as directed for 6 days Activity Restrictions/Add. Instructions Additional Instructions/Restrictions: Please follow-up with your primary care provider. Please return to the emergency department if you develop any new or worsening symptoms or become concerned for your health. Please take meclizine and Zofran as needed for symptoms. Consider doing the Brad maneuver at home. Clinical Impressions Clinical Impression: Benign paroxysmal positional vertigo Qualifiers: Laterality: left Qualified Code(s): H81.12 - Benign paroxysmal vertigo, left ear Instructions Patient Instructions: DI for Benign Paroxysmal Positional Vertigo Print Language Print Language: Pashto Discharge ED Provider: Horace Baker General Adult HPI General Chief complaint: Anxiety Stated complaint: chest pain Time Seen by Provider: 03/26/25 03:50 Mode of Arrival: Ambulatory Source of Information: Patient Description of Symptoms (Recalled from ER Triage Doc. by RN): pt reports she was feeling dizzy at home and checked her BP on her home machine, it read that it was low and she began having a panic attack History of Present Illness HPI narrative: 44-year-old female with history of anxiety presents for multiple complaints. She reports that she woke up and had sudden severe vertigo. She felt dizzy and lightheaded and her blood pressure. Her blood pressure was 60s over 30s multiple times and so she came to the ER. She reports that she has had some headache and eye symptoms before but this feels different and worse. She reports that she has anxiety and she feels very anxious about her blood pressure being low, blood pressure is now high which is also making her anxious. She reports turning and moving her head makes her dizziness and vertigo worse, its better with sitting still. She denies any recent fever, ear pain, viral symptoms. Denies any tinnitus. Reports her vision is normal. Related Data Home Medications ?Medication ?Instructions ?Recorded ?Confirmed albuterol sulfate 90 mcg/actuation 1 puff inhalation Q 6H PRN 05/02/18 09/11/19 aerosol inhaler Shortness Of Breath tizanidine 2 mg tablet 2 mg PO DAILY 07/21/2407/21 Previous Rx's ?Medication ?Instructions ?Recorded albuterol sulfate 90 mcg/actuation 2 puff inhalation Q 6H PRN 07/21/24 aerosol inhaler (Ventolin HFA) shortness of breath or wheezing #6.7 grams azithromycin 250 mg tablet 250 mg PO UD DOSE PK #6 tab s 07/21/24 (Zithromax) methylprednisolone 4 mg tablets in 4 mg PO DIRECTED 6 days #21 tabs 07/21/24 a dose pack ondansetron 4 mg disintegrating 4 mg PO Q6H PRN nausea and 08/12/24 tablet vomiting #7 tabs ondansetron 4 mg disintegrating 4 mg PO Q6H PRN nausea and 08/12/24 tablet vomiting #7 tabs promethazine 12.5 mg tablet 12.5 mg PO TID PRN nausea and 08/12/24 vomiting #7 tabs promethazine 12.5 mg tablet 12.5 mg PO TID PRN sedatio n #7 tabs 08/12/24 metoclopramide HCl 10 mg tablet 10 mg PO Q6H PRN nause a and 11/28/24 (Reglan) vomiting #20 tabs meclizine 25 mg tablet 25 mg PO TID PRN dizziness # 30 tabs 03/26/25 ondansetron HCl 4 mg tablet 4 mg PO Q8H PRN nausea and 03/26/25 vomiting 5 days #30 tabs Allergies Allergy/AdvReac Type Severity Reaction Status Date / Time nalbuphine (NALBUPHINE) Allergy Mild Verified 12/10/22 16:43 Penicillins (PENICILLINS) Allergy Mild Verified 12/10/22 16:43 tramadol (TRAMADOL) Allergy Mild Verified 12/10/22 16:43 PFSH PFSH Disclaimer: The information contained in this section may have been updated after the patient was seen, as this information can be updated by other users. Social History Smoking Status: Never smoker alcohol intake: never current occupational status: employed Travel in the last 8 weeks?: Inside the [place] Other Medical History Have you received the Flu Vaccine for this season: No Have you received the Pneumonia Vaccine: No ROS Obtained: Yes All systems reviewed & no additional complaints except as documented Physical Exam General General appearance: alert and anxious Head Head exam: atraumatic and normocephalic Eye Eye exam: Present normal appearance, PERRL and EOMI ENT ENT exam: Present normal oropharynx, TM's normal bilaterally and normal external ear exam Neck Neck exam: Present normal inspection and full ROM Chest Chest inspection: Present normal inspection and symmetric chest wall rise; Absent tenderness Respiratory Respiratory exam: Present normal lung sounds bilaterally; Absent respiratory distress Cardiovascular Cardiovascular exam: Present regular rate and normal rhythm Abdominal Exam Abdominal exam: Present soft; Absent distention, tenderness or guarding Extremities Exam Extremities exam: Present normal inspection; Absent edema or joint swelling Back Exam Back exam: Present normal inspection; Absent tenderness Neurological Exam Neurological exam: Present alert and oriented X3; Absent motor sensory deficit Psychiatric Psychiatric exam: Present normal affect and normal mood Skin Skin exam: Present warm, dry and normal color Lymphatic Lymphatic Findings: no adenopathy Medical Decision Making Medical Records Medical records reviewed: Yes I reviewed the patient's medical records. Screening: Per USPSTF and CDC recommendations, given the prevalence of disease in our region, it is our hospital?s policy to screen for HIV and viral Hepatitis for all patients aged 18 and over and those with ongoing risk factors. Warner Inquiry Pt receiving controlled substance: No Warner was queried for this patient: No Vital Signs: 03/26/25 03:53 03/26/25 04:00 03/26/25 04:24 Temperature 97.9 F Temperature Source Temporal Artery Scan Pulse Rate 102 H 97 H Pulse Rate [Orthostatic Lying Apical] Pulse Rate [Orthostatic Sitting Apical] Pulse Rate [Orthostatic Standing Apical] Pulse Rate [Right] 125 H Respiratory Rate 26 H 15 19 Blood Pressure 157/110 H 134/85 Blood Pressure [Orthostatic Lying Right Arm] Blood Pressure [Orthostatic Sitting Right Arm] Blood Pressure [Orthostatic Standing Right Arm] Blood Pressure [Right Arm] 161/99 H Blood Pressure Mean Blood Pressure Mean [Right Arm] 119 Blood Pressure Position 02 Sat by Pulse Oximetry 100 99 99 Oxygen Delivery Method Room Air 03/26/25 04:25 03/26/25 04:29 03/26/25 04:30 Temperature Temperature Source Pulse Rate 118 H 98 H Pulse Rate [Orthostatic Lying Apical] 96 H Pulse Rate [Orthostatic Sitting Apical] 106 H Pulse Rate [Orthostatic Standing Apical] 110 H Pulse Rate [Right] Respiratory Rate 15 13 Blood Pressure 132/87 131/82 Blood Pressure [Orthostatic Lying Right Arm] 134/85 Blood Pressure [Orthostatic Sitting Right Arm] 134/97 H Blood Pressure [Orthostatic Standing Right Arm] 132/87 Blood Pressure [Right Arm] Blood Pressure Mean Blood Pressure Mean [Right Arm] Blood Pressure Position 02 Sat by Pulse Oximetry 97 99 Oxygen Delivery Method 03/26/25 05:00 03/26/25 05:30 03/26/25 05:45 Temperature 97.6 F Temperature Source Pulse Rate 87 87 Pulse Rate [Orthostatic Lying Apical] Pulse Rate [Orthostatic Sitting Apical] Pulse Rate [Orthostatic Standing Apical] Pulse Rate [Right] Respiratory Rate 13 12 Blood Pressure 129/81 137/78 130/76 Blood Pressure [Orthostatic Lying Right Arm] Blood Pressure [Orthostatic Sitting Right Arm] Blood Pressure [Orthostatic Standing Right Arm] Blood Pressure [Right Arm] Blood Pressure Mean 89 Blood Pressure Mean [Right Arm] Blood Pressure Position 02 Sat by Pulse Oximetry 98 99 Oxygen Delivery Method 03/26/25 05:56 Temperature 97.6 F Temperature Source Oral Pulse Rate 87 Pulse Rate [Orthostatic Lying Apical] Pulse Rate [Orthostatic Sitting Apical] Pulse Rate [Orthostatic Standing Apical] Pulse Rate [Right] Respiratory Rate 12 Blood Pressure 130/76 Blood Pressure [Orthostatic Lying Right Arm] Blood Pressure [Orthostatic Sitting Right Arm] Blood Pressure [Orthostatic Standing Right Arm] Blood Pressure [Right Arm] Blood Pressure Mean Blood Pressure Mean [Right Arm] Blood Pressure Position Supine 02 Sat by Pulse Oximetry Oxygen Delivery Method Room Air Lab Data Lab results reviewed: Yes I reviewed the patient's lab results. Lab Results 03/26/25 03:52: WBC 8.8, RBC 4.70, Hgb 13.9, Hct 40.9, MCV 87.0, MCH 29.6, MCHC 34.0, RDW 13.2, Plt Count 354, MPV 9.3, Neut % (Auto) 42.6, Lymph % (Auto) 47.1, Broome % (Auto) 7.1, Eos % (Auto) 2.3, Baso % (Auto) 0.6, Neut # (Auto) 3.8, Lymph # (Auto) 4.2, Broome # (Auto) 0.6, Eos # (Auto) 0.2, Baso # (Auto) 0.1, Sodium 136, Potassium 3.6, Chloride 105, Carbon Dioxide 23, Anion Gap 11.6, BUN 14, Creatinine 0.70, Estimated Creat Clear 120, Estimated GFR 92, Est GFR ( Amer) 111, Glucose 116 H, Calcium 10.1, Magnesium 2.0, Total Bilirubin 0.6, AST 29, ALT 24, Alkaline Phosphatase 55, Total Protein 7.5, Albumin 4.7, Globulin 2.8, Albumin/Globulin Ratio 1.7, TSH 2.40, Thyroxine (T4) 8.4, Serum HCG, Qual Negative 03/26/25 03:52 03/26/25 03:52 Orders (Tests/Meds): ED MEDICATIONS Discontinued Medications Generic Name Dose Route Start Last Admin Trade Name Freq PRN Reason Stop Dose Admin Acetaminophen 1,000 mg 03/26/25 04:10 03/26/25 04:20 Acetaminophen 500mg Tab PO 03/26/25 04:11 1,000 mg ONCE ONE Administration Lactated Ringer's 1,000 mls @ 999 mls/hr 03/26/25 04:15 03/26/25 04:20 Lactated Ringer's 1000 Ml Bag IV 03/26/25 05:15 999 mls/hr .Q1H1M CORNEL Administration Magnesium Sulfate 2 gm in 50 mls @ 150 mls/hr 03/26/25 04:10 03/26/25 04:19 Magnesium Sulfate 2gm/50ml Premix IV 03/26/25 04:29 Not Given ONCE ONE Meclizine HCl 25 mg 03/26/25 05:10 03/26/25 05:16 Meclizine 25mg Tablet PO 03/26/25 05:11 25 mg ONCE ONE Administration Ondansetron HCl 4 mg 03/26/25 05:10 03/26/25 05:16 Ondansetron 4mg/2ml Vial IV 03/26/25 05:11 4 mg ONCE ONE Administration ORDERS Category Date Time Status CBC w/Auto Diff [Complete Blood Count Auto Diff] Stat Lab 03/26/25 03:52 Completed CMP [Comprehensive Metabolic Panel] Stat Lab 03/26/25 03:52 Completed MAG [Magnesium] Stat Lab 03/26/25 03:52 Completed Serum [HCG Qualitative, Serum] Stat Lab 03/26/25 03:52 Completed T4 (Thyroxine) Stat Lab 03/26/25 03:52 Completed TSH [Thyroid Stimulating Hormone] Stat Lab 03/26/25 03:52 Completed ECG Data Tracing #1: I reviewed this ECG and interpreted as documented below: Sinus tachycardia, ventricular rate of 111, no significant ischemic changes. ECG initial impression date: 03/26/25 ECG initial impression time: 03:52 Medical Decision Narrative: 44-year-old female without significant past medical history presents for vertigo and low blood pressure at home, anxiety. History was obtained via interactive discussion with patient, family, chart review. On arrival, patient is [afebrile, hemodynamically stable, satting appropriately, alert, oriented x4, GCS 15], moving all extremities spontaneously. Full physical exam performed and significant for positive Bruno-Hallpike maneuver on the left. No focal neurologic deficits. Differential includes but is not limited to BPPV, migraine headache, vagal response, stroke, cerebral venous thrombosis, labyrinthitis,. Patient was given Tylenol and fluid bolus as well as meclizine and Zofran for symptomatic management and correction of underlying abnormalities. Workup initiated including basic labs. On re-evaluation, patient reports symptomatic improvement. She is only mildly dizzy with laying down but dizziness gets severely worse with movement. We performed the Brad maneuver a couple of time with mild improvement. Laboratory workup independently interpreted by me and significant for normal function, normal thyroid studies, no leukocytosis, negative test. CT imaging, MRI was considered, but deemed unnecessary due to low concern for intracranial lesion. Given patient history, exam and workup, patient's presentation most likely represents BPPV. I am not certain that the blood pressure reading she had at her house was accurate, though it could be a vagal response to the vertigo that she is experiencing. Her blood pressure here has been hypertensive trending towards normal. Patient reports some symptomatic improvement after medication interventions. I had interactive discussion with patient guarding her presentation and workup. I sent a prescription for meclizine and Zofran and recommend she follow-up with PCP. Procedures Risk/Benefits of Procedure(s) Were Explained: Yes Critical Care Critical Care Time Critical Care Time: No
[2025-03-26] MEDS: ACETAMINOPHEN 500MG TAB 1000 MG PO (04:20)
[2025-03-26] MEDS: LACTATED RINGERS 1000ML 1,000 ML 999 ML IV (04:20)
[2025-03-26 04:22] LABS: Alanine Aminotransferase 24 U/L (12-78); Albumin Level 4.7 g/dl (3.5-5.0); Albumin/Globulin Ratio 1.7 (1.1-1.8); Alkaline Phosphatase 55 U/L (38-126); Anion Gap 11.6 mEq/L (5-15); Aspartate Amino Transferase 29 U/L (14-36); Bilirubin,Total 0.6 mg/dl (0.2-1.3); Blood Urea Nitrogen 14 mg/dl (7-17); Calcium 10.1 mg/dl (8.4-10.2); Carbon Dioxide 23 mmol/L (22.0-30.0); Chloride 105 mmol/L (98-107); Creatinine Clearance Estimated 120 mL/min (50-200); Creatinine,Serum 0.70 mg/dl (0.52-1.04); Estimated Glomerular Filt Rate 92 ml/min (>60); GFR (African American) 111 ML/MIN (>60); Globulin 2.8 g/dL (1.3-3.2); Glucose 116 mg/dl (74-100); Potassium 3.6 mmoL/L (3.5-5.1); Sodium 136 mmol/L (136-145); Total Protein,Serum 7.5 g/dl (6.3-8.2)
--- OUTSIDE RECORDS SUMMARY | 2025-03-26 04:22 | XMS_ITS | Clinical Summary ---
Author Organization [facility] Address [address] [place] [address] Phone [email or web address] Medical Care Team Providers Care [employer] Artistic Director Name Role Phone Audi Whelan Primary Care Provider [phone] Allergies Active Allergy Reactions Criticality Noted Date Comments Penicillins Rash Low 12/25/2017 As a teen Seasonal Allergies Medium 04/13/2023 Better since starting allergy shots. Medications albuterol HFA 108 (90 Base) MCG/ACT inhaler Inhale 2 puffs. Active Calcium-Vitamin D (Oyster Shell Calcium/Vit D3) 500-5 MG-MCG tablet Take 1 tablet by mouth in the morning and 1 tablet before bedtime. 1 Active loratadine (CLARITIN) 10 MG tablet Take 10 mg by mouth once daily as needed. Active ipratropium-alb uterol (DUO-NEB) 0.5-2.5 mg/3 mL nebulizer solution Take 3 mL by nebulization every 6 (six) hours if needed. 3 Active Active Problems Problem Noted Date Diagnosed Date Environmental and seasonal allergies 02/17/2023 Allergy desensitization therapy 02/17/2023 Vitamin D deficiency 12/26/2017 Moderate persistent asthma without complication 12/25/2017 Resolved Problems Problem Noted Date Diagnosed Date Resolved Date Deviated septum 01/10/2018 02/17/2023 Anxiety and depression 12/25/201702/17 Family history of heart disease 12/25/2017 02/17/2023 Social History Tobacco Use Types Packs/Day Years Used Date Smoking Tobacco: Former Cigarettes 0.5 11 0 08/21/2000 - 2011 Smokeless Tobacco: Never Alcohol Use Standard Drinks/Week Comments Never 0 (1 standard drink = 0.6 oz pur e alcohol) social Intimate Partner Violence Answer Date R ecorded Insults You Not on file 12/05/2020 Threatens You Not on file 12/05/2020 Screams at You Not on file 12/05/2020 Physically Hurt Not on file 12/05/2020 Intimate Partner Violence Score Not on file 12/05/2020 Alcohol Use Answer Date Recorded Alcohol Use Status Never 03/25/2024 Stress Answer Date Recorded Stress in your Life 0 10/26/2020 Dealing with Stress Not on file 10/26/2020 Comments No Sex and Gender Information Value Date Recorded Sex Assigned at Not on file Legal Sex Female 5:30 AM LINEMAN Gender Identity Not on file Sexual Orientation Not on file Last Filed Vital Signs Vital Sign Reading Time Taken Comments Blood Pressure 110/68 04/13/2023 2:38 PM EDT Pulse 78 04/13/2023 2:38 PM EDT Temperature 37.4 C (99.3 F) 11/07/2023 12:50 PM EDT Respiratory Rate - - Oxygen Saturation 98% 04/13/2023 2:38 PM EDT Inhaled Oxygen Concentration - - Weight 72.6 kg (160 lb) 04/13/2023 2:38 PM EDT Height 167.6 cm (5' 6 ) 04/13/2023 2:38 PM EDT Body Mass Index 25.82 04/13/2023 2:38 PM EDT Plan of Treatment Health Maintenance Due Date Last Done Comments Cervical Cancer Screening Combo 1982 Dental Cleaning/Exam 1982 HPV / Cotest 1982 Pap Testing 1982 HPV Immunization (1 - 2-dose series) 1993 Hepatitis B Immunization (1 of 3 - 19+ 3-dose series) 2001 Breast Cancer Screening 2012 Covid-19 Immunization (2 - 2 -25 season) 2024 09/24/2020 Influenza Immunization (#1) 2025 05/08/2020 Tetanus Diphtheria and Pertu ssis Immunization (2 - Td or Tdap) 04/01/2026 04/01/2016 HIB Immunization Aged Out No longer e ligible based on patient's age to complete this topic Hepatitis A Immunization Aged Out No longer eligible based on patient's age to complete this topic Pneumococcal: Ped (0 to 5 Yr s) and At-Risk Member (6 to 64 Yrs) Aged Out No longer e ligible based on patient's age to complete this topic Polio Immunization Aged Out No longer eligible based on patient's age to complete this topic Varicella Immunization Aged Out No lo nger eligible based on patient's age to complete this topic Insurance [facility] [place] [address] Care Teams [employer] Artistic Director Relationship Specialty Start Date End Date Audi Whelan[address] [address] PCP - General Family Medicine 02/17/23
--- OUTSIDE RECORDS SUMMARY | 2025-03-26 04:23 | XMS_ITS | Encounter Summary ---
Author Organization [place] [address] Care Team Providers Care Director Of Corporate Sales Name Role Phone Marcial Boyd MD Unavailable [phone] Enrique Kumar MD Primary Care Provider [phone] Reason for Referral * Physical Therapy (Routine) - Authorized Specialty Diagnoses / Procedures Referred By Contnisha t Referred To Contact Physical Therapy Diagnoses Osteoarthritis of spine with radiculopathy, cervical region Lana Ford APRN [address] [place] [address] Phone: tel: fax: [facility] [place] [address] Phone: tel: fax: Referral ID Status Reason Start Date Expiration Date V isits Requested Visits Authorized [id number] Authorized 01/20/2025 01/20/2026 99 99 Question Answer Reason for Physical Therapy Evaluate and Treat Comments neck pain and stiffness Reason for Visit * Reason Onset Date Comments Referral 01/16/2025 Physical Therapy Encounter Details Date Type Department Care Team (Late st Contact Info) Description 01/16/2025 Telephone [facility] [address] [place] [phone] Enrique Kumar MD [address] [place] [address] Referral (Physical Therapy ) Social History Tobacco Use Types Packs/Day Years [...] 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 * Telephone Encounter - Citlali Tavera RMA - 01/16/2025 10:33 AM EDT Select the most appropriate reason for this telephone message: Referral Request Who is requesting the referral: Patient What type of referral: Physical Therapy What is the reason / diagnosis for this referral: back issue Have you been seen by your PCP for this issue: Yes Does patient have a preference on a group/provider: No Preferred Provider/Group Name: Preferred Provider/Group Phone Number: Preferred Provider/Group Fax Number: Return Method of Communication: Phone Call Additional Information: N/A documented in this encounter Plan of Treatment Upcoming Encounters Date Type Department Care Team (Late st Contact Info) Description 03/26/2025 5:[address] [facility] Physical Therapy [address] [place] [address] Francisco J Lee PTA 04/02/2025 5:[address] [facility] Physical Therapy [address], [place] [address] Francisco J Lee PTA 04/04/2025 4:[address] [facility] [address], [place] [address] Lana Ford APRN [address] [facility] [place] [address] Scheduled Referrals Name Type Priority Associated Diagnoses [...] as of this encounter Visit Diagnoses Diagnosis Osteoarthritis of spine with radiculopathy, cervical region- Primary documented in this encounter Care Teams Director Of Corporate Sales Relationship Specialty Start Date End Date Enrique Kumar MD [address] [place] [address] [place] [phone] PCP - General Internal Medicine 10/19/22 Marcial Boyd MD [address] [place] [address] [address] [place] [id number] Internal Medicine-Cardiovascular Disease 07/28/20 documented as of this encounter
--- OUTSIDE RECORDS SUMMARY | 2025-03-26 04:23 | XMS_ITS | Encounter Summary ---
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 on [...] Natividad Valdez RMA documented in this encounter Plan of Treatment Upcoming Encounters Date Type Department Care Team (Late st Contact Info) Description 03/26/2025 5:00 PM EDT Appointment [facility] Physical Therapy [address] [address] [phone] Francisco J Lee PTA 04/02/2025 5:00 PM EDT Appointment [facility] Physical Therapy [address], [place] [address] Francisco J Lee PTA 04/04/2025 4:00 PM EDT Appointment [facility] [address] [address] Lana Ford APRN [address] [facility] [place] [address] documented as of this encounter Goals Goal Patient Goal Type Associated Problems Recent Progress Patient-Stated? Author Maintain a healthy diet, exercise regularly and maintain an ideal body weight General No Mackenzie Mullen CCMA Stay Tobacco Free Lifestyle No Melisa Mckeon APRN documented as of this encounter Visit Diagnoses Not on filedocumented in this encounter Care Teams Rotary Slicing Machine Operator Relationship Specialty Start Date End Date Enrique Kumar MD [address] [facility] [place] [phone] PCP - General Internal Medicine 10/19/22 Marcial Boyd MD [address] [place] [address] [address] [place] [id number] Internal Medicine-Cardiovascular Disease 07/28/20 documented as of this encounter
--- OUTSIDE RECORDS SUMMARY | 2025-03-26 04:23 | XMS_ITS | Encounter Summary ---
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 [...] Assessment Author No 03/27/2021 10:21 AM EDT aNtividad Valdez RMA * Does this person have [...] Info) Description 03/26/2025 5:00 PM EDT Appointment [facility] Physical Therapy [address] [place] [address] [address] Francisco J Lee PTA 04/02/2025 5:00 PM EDT Appointment [facility] Physical Therapy [address], [place] [address] Francisco J Lee PTA 04/04/2025 4:00 PM EDT Appointment [facility] [address] MRI [address] [place] [address] [address] Lana Ford APRN [address] [place] [address] documented as of this encounter Goals Goal Patient Goal Type Associated Problems Recent Progress Patient-Stated? Author Maintain a healthy diet, exercise regularly and maintain an ideal body weight General No Mackenzie Mullen CCMA Stay Tobacco Free Lifestyle No Melisa Mckeon APRN documented as of this encounter Visit Diagnoses Not on filedocumented in this encounter Care Teams Oil Speculator Relationship Specialty Start Date End Date Enrique Kumar MD [address] [place] [phone] PCP - General Internal Medicine 10/19/22 Marcial Boyd MD [address] [place] [address] [address] [place] [id number] Internal Medicine-Cardiovascular Disease 07/28/20 documented as of this encounter
--- OUTSIDE RECORDS SUMMARY | 2025-03-26 04:23 | XMS_ITS | Patient Health Record ---
Author Organization [facility] Address [address] [facility] [address] [place] [id number] Care Team Providers Care Sales Marketing Director Name Role Phone Ly Ayala Primary Care Provider [phone] LeonardaEnrique Unavailable [phone] Allergies Allergen (clinical drug ingredient) Drug/Non Drug Allergy documented on EMR Reaction Allergy Type Onset Date Status HYDROcodone-Acetami nophen stomach upset Drug Allergy Active Penicillin Unknown Drug Allergy Active Results Component Value Reference Range Notes P-Basic Metabolic Panel (BMP ) Reviewed date:06/12/2024 04:49:04 PM Interpretation:Normal Performing Lab: Notes/Report: Test performed by [facility] [address] [place], [place] [address] [place] , [place] [address] Grey Faith MD, Monitor Car Operator CLIA: [id number] Sodium 139 135-145 mmol/L Potassium 5.1 3.5-5.3 mmol/L Chloride 102 97-108 mmol/L CO2 24 22-32 mmol/L Glucose 94 65-99 mg/dL BUN 11 6-20 mg/dL Creatinine 0.89 0.50-1.00 mg/dL Calcium 10.3 8.6-10.4 mg/dL eGFR by Creatinine 83 >59 mL/min/1.73m2 P-Lipid Panel Reviewed date:06/12/2024 04:49:04 PM Interpretation:Normal Performing Lab: Notes/Report: Test performed by [facility] [address] [place], [place] [address] [place] , [address], [place] [address] Grey Faith MD, Monitor Car Operator CLIA: [id number] Cholesterol 179 <200 mg/dL Triglycerides 55 <150 [...] Interpretation:Normal Performing Lab: Notes/Report: Test performed by [facility], [address] , [place] [address] Grey Faith MD, Monitor Car Operator CLIA: [id number] Vitamin D 25-Hydroxy 35.4 30.0-100.0 ng/mL Interpretation of Vitamin D 25 OH: < 20 ng/mL - Deficiency 20 - 29 ng/mL - Insufficiency 30 - 100 ng/mL - Sufficiency > 100 ng/mL - Super-therapeutic- toxicity may occur above this level. Clinical correlation required. KARLI Reviewed date:06/06/2024 11:03:43 AM Interpretation: Performing Lab: Notes/Report: Medications Medication SIG (Take, Route, Frequency, Duration) Notes Start Date End Date Status Albuterol Sulfate HFA 108 (90 Base) MCG/ACT 1 puff as needed Inhalation every 4 hrs Active tiZANidine HCl 2 MG 1 tablet as needed O rally Three times a day 06/07/2024 Active Vitamin D 50 MCG (2000 UT) 1 capsule Ora lly Once a day; Duration: 30 day(s) Active Claritin 10 MG 1 tablet Orally Once a day; Duration: 30 day(s) Active Problems Problem Type SNOMED Code ICD Code Onset Dates Problem Status W/U Status Risk Notes Problem History of multiple allergies (situation) (849842025) Allergies (995.3) Active confirmed Problem Vitamin D deficiency (48615770) Vitamin D deficiency (E55.9) Active confirmed Problem Solitary nodule of lung (792784318) Lung nodule (R91.1) Active confirmed Problem Disorder of neck (236413302) Disorder of neck (M53.82) Active confirmed Vital Signs Heart Rate 82 /min 06/07/2024 Blood pressure diastolic 80 mm Hg 06/07/2024 Height 66 in 06/07/2024 Blood pressure systolic 124 mm Hg 06/07/2024 Weight 153 lbs 06/07/2024 BMI 24.69 kg/m2 06/07/2024 Encounters Encounter Location Date Provider Diagnosis [facility] [address] [place] [id number] 06/07/2024 Enrique [place] Disorder of neck M53 .82 ; Muscle spasms of neck M62.838 ; Vitamin D deficiency E55.9 ; Hypokalemia E87.6 ; Diabetes mellitus screening Z13.1 and Screening, lipid Z13.220 [facility] [address] [facility] [address] [place] [phone] 06/07/2024 Enrique [place] Disorder of neck M53 .82 Assessments Encounter Date Diagnosis (ICD Code) Assessment Notes Treatment Notes Treatment Clinical Notes Section Notes 06/07/2024 Muscle spasms of neck (ICD-10 - M62.838) 06/07/2024 Disorder of neck (ICD-10 - M53.82) Home exercise program provided to patient, heating pad to affected areas 2 to 3 times a day 06/07/2024 Disorder of neck (ICD-10 - M53.82) 06/07/2024 Vitamin D deficiency (ICD-10 - E55.9) 06/07/2024 Hypokalemia (ICD-10 - E87.6) 06/07/2024 Diabetes mellitus screening (ICD-10 - Z13.1) 06/07/2024 Screening, lipid (ICD-10 - Z13.220) Plan Of Treatment No Information Insurance Providers Payer Name Payer Address Payer Phone Subscriber Number Group Number Insured Name Patient Relationship to Insured Coverage Start Date Coverage End Date [facility] [address] [address] [place] [address] [id number] SANAM ROSA Self - patient is the insured Medications Administered Medication Instructions Date of Administration Dosage Notes Vistaril 50 mg 04/12/2010 50 mg Vistaril 50 mg 05/17/2010 5o mg Medical (General) History Medical History History ICD Code Headache Thorne's Palsy Asthma, normal spirometry 2016 Allergic Rhinitis Superficial venous Thrombosis - Right Ar m after IV infiltrated Asthma Surgical History Surgery Date(Month/Year) Laparoscopy
--- OUTSIDE RECORDS SUMMARY | 2025-03-26 04:23 | XMS_ITS | Encounter Summary ---
Author Organization [place] [address] Care Team Providers Care Pneudraulic Systems Mechanic Name Role Phone Marcial Boyd MD Unavailable [phone] Enrique Kumar MD Primary Care Provider [phone] Reason for Referral * MRI/CAT Scan (Routine) - Authorized Specialty Diagnoses / Procedures Referred By Contac t Referred To Contact Radiology Diagnoses Osteoarthritis of spine with radiculopathy, cervical region Procedures MRI CERVICAL SPINE WO CONTRAST Lana Ford APRN [address] [place] [address] Phone: tel: fax: [facility] MRI [address] [place] [address] Phone: tel: Referral ID Status Reason Start Date Expiration Date V isits Requested Visits Authorized [id number] Authorized 03/05/2025 03/05/2026 1 1 Reason for Visit * Reason Onset Date Comments Orders 03/05/2025 MRI Encounter Details Date Type Department Care Team (Late st Contact Info) Description 03/05/2025 Telephone [facility] [address] [place] [phone] Lana Ford APRN [address] [place] [address] Orders (MRI ) Social History Tobacco Use Types Packs/Day [...] Start Date 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 [...] encounter Miscellaneous Notes * Telephone Encounter - Lisa Rasmussen RMA - 03/05/2025 3:14 PM EDT Order changed to [facility] and contact number given * Telephone Encounter - Citlali Tavera RMA - 03/05/2025 3:03 PM EDT Select the most appropriate reason for this telephone message: Order Request Who is requesting the Order(s): Patient What Orders are being requested: Radiology Reason Orders are Needed (Diagnosis): MRI cervical spine Why is this encounter being sent: Patient has been seen for this and informed to call back if no improvement or gets worse What types of radiology orders are being requested: MRI Is patient waiting at lab/hospital/facility: No If non-[facility] facility, where should the order be faxed (include fax number): na Upcoming PCP appointment date: 12/17/24 Return Method of Communication: Phone Call Additional Information: Pt wants to do it at [facility] now documented in this encounter Plan of Treatment Upcoming Encounters Date Type Department Care Team (Late st Contact Info) Description 03/26/2025 5:00 PM EDT Appointment [facility] Physical Therapy [address] [place], [place] [address] Francisco J Lee, POWER MANAGER 04/02/2025 5:00 PM EDT Appointment [facility] Physical Therapy [address] [place], [place] [address] Francisco J Lee, POWER MANAGER 04/04/2025 4:00 PM EDT Appointment [facility] [address] MRI [address], [place] [address] Lana Ford, CATERING SERVICE MANAGER [address] [facility] [place] [address] Scheduled Orders Name Type Priority Associated Diagnoses Orde r Schedule MRI CERVICAL SPINE WO CONTRAST Imaging Routine Osteoarthritis of spine with radiculopathy, cervical region 1 Occurrences starting 03/05/2025 until 03/05/2026 documented as of this encounter Goals Goal Patient Goal Type Associated Problems Recent Progress Patient-Stated? Author Maintain a healthy diet, exercise regularly and maintain an ideal body weight General No Mackenzie Mullen, VÍCTOR Stay Tobacco Free Lifestyle No Melisa Mckeon APRN documented as of this encounter Visit Diagnoses Diagnosis Osteoarthritis of spine with radiculopathy, cervical region- Primary documented in this encounter Care Teams Pneudraulic Systems Mechanic Relationship Specialty Start Date End Date Enrique Kumar MD [address] [facility] [place] [phone] PCP - General Internal Medicine 10/19/22 Marcial Boyd MD [address] [place] [address] [place] [address] Internal Medicine-Cardiovascular Disease 07/28/20 documented as of this encounter
--- OUTSIDE RECORDS SUMMARY | 2025-03-26 04:23 | XMS_ITS | Encounter Summary ---
Author Organization [place] [address] Care Team Providers Care Salvager Helper Name Role Phone Marcial Boyd MD Unavailable [phone] Enrique Kumar MD Primary Care Provider [phone] Encounter Details Date Type Department Care Team (Late st Contact Info) Description 12/19/2024 Results Follow-Up SEP Shasha [address] 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 [address] documented as of this encounter Goals Goal Patient Goal Type Associated Problems Recent Progress Patient-Stated? Author Maintain a healthy diet, exercise regularly and maintain an ideal body weight General No Mackenzie Mullen CCMA Stay Tobacco Free Lifestyle No Melisa Mckeon APRN documented as of this encounter Visit Diagnoses Not on filedocumented in this encounter Care Teams Salvager Helper Relationship Specialty Start Date End Date Ernique Kumar MD [address] [facility] [phone] PCP - General Internal Medicine 10/19/22 Marcial Boyd MD [address] [place] [address] [place] [address] Internal Medicine-Cardiovascular Disease 07/28/20 documented as of this encounter
--- OUTSIDE RECORDS SUMMARY | 2025-03-26 04:23 | XMS_ITS | Clinical Summary ---
Author Organization [facility] [place] [facility] Address [address] [place], [place] [address] Phone Care Team Providers Care Clay Washer Name Role Phone Marcial Boyd MD Unavailable [phone] Enrique Kumar MD Primary Care Provider [phone] Allergies Active Allergy Reactions Criticality Noted Date Comments Penicillins Other (See Comments) 12/25/2017 Not sure the reaction, just was told she was from a child Medications loratadine (CLARITIN) 10 mg Oral Tablet Take 10 mg by mouth daily. Active OYSTER SHELL CALCIUM-VIT D3 500 mg-5 mcg (200 unit) Oral TabletIndicatio ns:Vitamin D deficiency TAKE ONE TABLET BY MOUTH TWICE DAILY. 30 Tablet 4 3 Active Cholecalciferol , Vitamin D3, 50 mcg (2,000 unit) Oral CapsuleIndicati ons:Sinus pressure Take by mouth. Activ e albuterol (PROVENTIL) 2.5 mg /3 mL (0.083 %) Inhl Solution for NebulizationInd ications:Modera te persistent asthma without complication,Si nus pressure Take 3 mL by nebulization every 4 hours as needed for Wheezing. 180 mL 2 4 Active albuterol (PROVENTIL HFA;VENTOLIN HFA) 90 mcg/actuation Inhl HFA Aerosol Inhaler Inhale 2 Puffs into the lungs 0800, 1200, 1600, 2000. 1 Each 1 4 Active fluticasone propionate (FLONASE) 50 mcg/actuation Nasl [place], SuspensionIndic ations:COVID-19 virus infection,Histo ry of asthma 1 [place] by Nasal route daily. 1 Each 5 Active Active Problems Problem Noted Date Diagnosed Date Cervical radiculopathy 03/12/2025 Osteoarthritis of spine with radiculopathy, cerv ical region 12/17/2024 Assessment & Plan (12/17/2024 9:41 AM EDT): -MRI cervical spine order faxed to [facility], patient provided number to schedule -Provided number to chiropractor for neck pain and stiffness Deviated septum 01/10/2018 Vitamin D deficiency 12/26/2017 Assessment & Plan (12/17/2024 9:41 AM EDT): Orders: VITAMIN D 25 HYDROXY; Future Moderate persistent asthma without complication 12/25/2017 Family history of heart disease 12/25/2017 Anxiety and depression 12/25/2017 Encounters Date Type Department Care Team Description 03/12/2025 4:16 PM EDT - 03/12/2025 11:59 PM EDT Hospital Encounter [facility] Physical Therapy [address] [place], [place] [address] John Contreras, PT Cervical radiculopathy (Primary Dx) Discharge Disposition: Home or Self Care 03/06/2025 Orders Only [facility] Physical Therapy [address] [place] [address] John Contreras, PT 03/05/2025 Telephone [facility] [address] [place], [place] [phone] Lana Ford APRN Orders (MRI ) 01/23/2025 Orders Only [facility] Physical Therapy [address] [place] [address] John Contreras, PT 01/16/2025 Telephone SEP [address] [place] [phone] Enrique Kumar MD Referral (Physical Therapy ) from Last 3 Months Immunizations Immunization Administration Dates Next Due Influenza Vaccine Quadrivalent PF 05/08/2020 Tdap 04/01/2016 Surgical History Surgery Date Site/Laterality Comments OVARIAN CYST REMOVAL 3 surgeries LAPAROSCOPY for diagnostic laparoscopy for ovarian cyst. Medical History Medical History Date Comments Asthma diagnosed as an adult. 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 Not on file Not on file Obstetrics History Last Filed Vital Signs Vital Sign Reading Time Taken Comments Blood Pressure 120/70 12/17/2024 8:01 AM EDT Pulse 81 12/17/2024 8:01 AM EDT Temperature 36.7 C (98 F) 12/17/2024 8:01 AM EDT Respiratory Rate 18 12/17/2024 8:01 AM EDT Oxygen Saturation 100% 12/17/2024 8:01 AM EDT Inhaled Oxygen Concentration - - Weight 69.9 kg (154 lb) 12/17/2024 8:01 AM EDT Height 167.6 cm (5' 6 ) 12/17/2024 8:01 AM EDT Body Mass Index 24.86 12/17/2024 8:01 AM EDT Plan of Treatment Upcoming Encounters Date Type Department Care Team (Late st Contact Info) Description 03/26/2025 5:00 PM EDT Appointment [facility] Physical Therapy [address] [place] [address] Francisco J Lee, RECONNAISSANCE MAN 04/02/2025 5:00 PM EDT Appointment [facility] Physical Therapy [address] [place] [address] Francisco J Lee, RECONNAISSANCE MAN 04/04/2025 4:[address] [facility] MRI [address] [place] [address] Lana Ford, FREIGHT SORTER [address] [place] [address] Health Maintenance Due Date Last Done Comments Hepatitis B Vaccine (1 of 3 - 19+ 3-dose series) 2001 Pneumococcal Vaccine 0-49 (1 of 2 - PCV) 2001 HPV/Pap Cotest 2012 Cervical Cancer Screening 12/20/2019 Pap Smear 12/20/2019 12/19/2016 Breast Cancer Screening 2022 COVID-19 Vaccine (2 - 2023-2 5 season) 2024 09/24/2020 Annual Wellness Exam 10/06/2024 10/06/2023 Influenza Vaccine (#1) 2025 , 04/21/2020, 07/22/2019 DTaP/TDaP/Td (2 - Td or Tdap) 04/01/2026 04/01/2016 Meningococcal B Vaccine Aged Out No l onger eligible based on patient's age to complete this topic Goals Goal Patient Goal Type Associated Problems Recent Progress Patient-Stated? Author Maintain a healthy diet, exercise regularly and maintain an ideal body weight General No Mackenzie Mullen CCMA Stay Tobacco Free Lifestyle No Melisa Mckeon APRN Insurance Care Teams Clay Washer Relationship Specialty Start Date End Date Enrique Kumar MD [address] [place] [address] [place] [phone] PCP - General Internal Medicine 10/19/22 Marcial Boyd MD [address] [place] [address] [place] [address] Internal Medicine-Cardiovascular Disease 07/28/20
[2025-03-26 04:26] LABS: Hematocrit 40.9 % (37.0-47.0); Hemoglobin 13.9 g/dL (12.2-16.2); Immature Granulocytes % 0.3 %; Mean Corpuscular HGB Conc 34.0 g/dL (31.8-35.4); Mean Corpuscular Hemoglobin 29.6 pg (27.0-31.2); Mean Corpuscular Volume 87.0 fl (81-99); Nucleated Red Blood Cells % 0 %; Platelet Count 354 K/mm3 (142-424); Red Blood Count 4.70 M/mm3 (4.20-5.40); Red Cell Distribution Width-SD 42.5 fL; White Blood Count 8.8 K/mm3 (4.8-10.8)
[2025-03-26 04:32] LABS: HCG Qualitative, Serum Negative (Negative)
[2025-03-26 04:37] LABS: Magnesium 2.0 mg/dl (1.6-2.3)
[2025-03-26] MEDS: ONDANSETRON 4MG/2ML VIAL 4 MG IV (05:16)
[2025-03-26] MEDS: MECLIZINE 25MG TABLET 25 MG PO (05:16)
[2025-03-26 05:43] LABS: Thyroid Stimulating Hormone 2.40 uIU/mL (0.465-4.68)
[2025-03-26 05:51] LABS: T4 (Thyroxine) 8.4 ug/dl (5.53-11.0)
== END 2025-03-26 06:06 | disposition home or self-care (01) ==
PROVIDERS: Emergency Provider Emergency Medicine
DX: H81.12 Benign paroxysmal vertigo, left ear (principal); R00.0 Tachycardia, unspecified
CPT/HCPCS: 80053; 83735; 84436; 84443; 84703; 85025; 93005; 96361; 96374; 99284; J2405; J7120

== ENCOUNTER 2025-07-18 14:51 | Outpatient (CLI) | payer OTHER, SELFPAY ==
--- OUTSIDE RECORDS SUMMARY | 2024-06-07 06:15 | XMS_ITS ---
Author Organization [facility] Address [address] [facility] [address] [place] [id number] Care Team Providers Care Sound Engineer Audio Control Name Role Phone Ly Ayala Primary Care Provider Enrique Brower Unavailable [phone] Allergies Allergen (clinical drug ingredient) Drug/Non Drug Allergy documented on EMR Reaction Allergy Type Onset Date Status acetaminophen / hydrocodone HYDROcodone-Acetam inophen stomach upset Drug Allergy Active Penicillin Unknown Drug Allergy Active Results Component Value Reference Range Notes P-Basic Metabolic Panel (BMP ) Reviewed date:06/12/2024 04:49:04 PM Interpretation:Normal Performing Lab: Notes/Report: CLIA: [id number] Grey Faith MD, Sub Master [address] [place] [address] , [place] [address] Test performed by [facility] Sodium 139 135-145 mmol/L Potassium 5.1 3.5-5.3 mmol/L Chloride 102 97-108 mmol/L CO2 24 22-32 mmol/L Glucose 94 65-99 mg/dL BUN 11 6-20 mg/dL Creatinine 0.89 0.50-1.00 mg/dL Calcium 10.3 8.6-10.4 mg/dL eGFR by Creatinine 83 >59 mL/min/1.73m2 P-Lipid Panel Reviewed date:06/12/2024 04:49:04 PM Interpretation:Normal Performing Lab: Notes/Report: Test performed by [facility] [address] [place] [address] [address], [place] [id number] Grey Faith MD, Sub Master CLIA: [id number] Cholesterol 179 <200 mg/dL Triglycerides 55 <150 mg/dL HDL Cholesterol 68 >39 mg/dL Cholesterol / HDL Ratio 2.63 0.00-4.44 Ratio Non-HDL Cholesterol 111 <130 mg/dL LDL Cholesterol (Calculation) 100 <130 mg/dL LDL Cholesterol Levels* Less than 100 mg/dL Optimal 100 to 129 mg/dL Near Optimal/ Above Optimal 130 to 159 mg/dL Borderline High 160 to 189 mg/dL High 190 mg/dL and above Very High * Categories as recommended by the 2004 ATPIII guidelines LDL/HDL Ratio 1.5 <3.3 Ratio LDL Cholesterol Patient History Test Date: 06/07/2024 LDL Results: 100 Units: mg/dL % Change: - P-Vitamin D 25-Hydroxy Reviewed date:06/12/2024 04:49:04 PM Interpretation:Normal Performing Lab: Notes/Report: Test performed by [facility], [address] , [address] , [place] [address] Grey Faith MD, Sub Master CLIA: [id number] Vitamin D 25-Hydroxy 35.4 30.0-100.0 ng/mL Interpretation of Vitamin D 25 OH: < 20 ng/mL - Deficiency 20 - 29 ng/mL - Insufficiency 30 - 100 ng/mL - Sufficiency > 100 ng/mL - Super-therapeutic- toxicity may occur above this level. Clinical correlation required. REASON FOR VISIT back of neck (pain) Medications Medication SIG (Take, Route, Frequency, Duration) Notes Start Date End Date Status Vitamin D 50 MCG (1999 UT) 1 capsule Ora lly Once a day; Duration: 30 day(s) Active Claritin 10 MG 1 tablet Orally Once a day; Duration: 30 day(s) Active Albuterol Sulfate HFA 108 (90 Base) MCG/ACT 1 puff as needed Inhalation every 4 hrs Active tiZANidine HCl 2 MG 1 tablet as needed O rally Three times a day 06/07/2024 Active Problems Problem Type SNOMED Code ICD Code Onset Dates Problem Status W/U Status Risk Notes Problem Disorder of neck (437362809) Disorder of neck (M53.82) Active confirmed Problem Vitamin D deficiency (57774119) Vitamin D deficiency (E55.9) Active confirmed Vital Signs Blood pressure systolic 124 mm Hg 06/07/20 24 Blood pressure diastolic 80 mm Hg 024 Heart Rate 82 /min 06/07/2024 Height 66 in 06/07/2024 Weight 153 lbs 06/07/2024 BMI 24.69 kg/m2 06/07/2024 Encounters Encounter Location Date Provider Diagnosis [facility] [address] [facility] [address] [place] [id number] 06/07/2024 Enrique [place] Disorder of neck M53 .82 ; Muscle spasms of neck M62.838 ; Vitamin D deficiency E55.9 ; Hypokalemia E87.6 ; Diabetes mellitus screening Z13.1 and Screening, lipid Z13.220 Assessments Encounter Date Diagnosis (ICD Code) Assessment Notes Treatment Notes Treatment Clinical Notes Section Notes 06/07/2024 Disorder of neck (ICD-10 - M53.82) Home exercise program provided to patient, heating pad to affected areas 2 to 3 times a day 06/07/2024 Muscle spasms of neck (ICD-10 - M62.838) 06/07/2024 Vitamin D deficiency (ICD-10 - E55.9) 06/07/2024 Hypokalemia (ICD-10 - E87.6) 06/07/2024 Diabetes mellitus screening (ICD-10 - Z13.1) 06/07/2024 Screening, lipid (ICD-10 - Z13.220) Plan Of Treatment Medication Medication Name Sig Start Date Stop Date Notes tiZANidine HCl 2 MG 1 tablet as needed O rally Three times a day 06/07/2024 Treatment Notes Assessment Notes Disorder of neck Home exercise progra m provided to patient, heating pad to affected areas 2 to 3 times a day Next Appt Details Follow Up: via phone to repo rt progress, Reason: Provider Name:Enrique Marina ry, 07/18/2025 02:00:00 PM, [address], [address], [place], [place], [phone], Progress Notes * Bony ROSA: 2 (45 yo F)Acc No.[id number]:06/07/2024 Progress Notes Patient: Preeti FOSTER Provider: Loulou Brower M.D. :1980 A ge:43 Y S ex:Female Date:06/07/2024 Address:[id number] Pcp:Ly Ayala Subjective: * Chief Complaints: * 1 . Back of neck (pain). * HPI: N arturo: 43 year old female presents with c/o pain P t complains of cervical neck pain for 3 days. States she has this pain before and it did eventually go away . Pt states she thinks sitting at a desk all day and looking up at computers may be the cause of pain. Pt states pain radiates down her arms at times as well. H PI: c/o Patient is here today for P t here to establish care, previously seen by Dr. Kumar at [facility] in [place], [place]. * ROS: D ERMATOLOGY: no R bina. n o H levy. G ASTROENTEROLOGY: no N ausea. n o V omiting. U ROLOGY: no D ifficulty urinating. n o B lood in urine. * Medical History: H eadache, Thorne's Palsy, Asthma, normal spirometry 2017, Allergic Rhinitis, Superficial venous Thrombosis - Right Arm after IV infiltrated, Asthma. * Surgical History: L aparoscopy . * Hospitalization/Major Diagno stic Procedure: D enies Past Hospitalization. * Family History: F ather: alive 76 yrs, diagnosed with Hypertension, Stroke, Cancer. M other: alive 66 yrs.?3 brother(s) . . * Social History: C URRENT TOBACCO USE: No S moking Status: Patient does NOT smoke. C affeine: yes, frequency: 1 cup of coffee daily. Marital Status: . Alcohol: no. Sexually active: yes. Travel ouside [place]: no. * Medications: T aking Albuterol Sulfate HFA 108 (90 Base) MCG/ACT Aerosol Solution 1 puff as needed Inhalation every 4 hrs , Taking Claritin 10 MG Tablet 1 tablet Orally Once a day , Taking Vitamin D 50 MCG (2000 UT) Capsule 1 capsule Orally Once a day , Discontinued CHILDREN'S XAVI ODT 30 MG TABLET, DISINTEGRATING 1 TAB(S) ORALLY 2 TIMES A DAY , Notes to Pharmacist: *Please review for potential replacement for e-prescription and drug interaction check*, Discontinued Qvar RediHaler 80 MCG/ACT Aerosol Breath Activated 1 puff(s) inhaled 2 times a day , Discontinued Ventolin HFA 108 (90 Base) MCG/ACT Aerosol Solution 2 puff(s) inhaled 4 times a day , Medication List reviewed and reconciled with the patient * Allergies: P enicillin, HYDROcodone-Acetaminophen: stomach upset. Objective: * Vitals: W t:153, Temp:97.8, BP:124/80, HR:82, Nurse:berto, Ht: 66, BMI:24.69. * Examination: N arturo: Vertebral spine tenderness: p resent over lower cervical spines. P araspinal muscle spasm: present bilaterally. R more of motion of neck: limited rotations. T rapezius tenderness: present bilaterally. G eneral Examination: General Appearance: N AD. H eart: R SR. L ungs:?clear to auscultation. P eripheral pulses: n ormal (2+) bilaterally. E xtremities:?no leg edema. Assessment: * Assessment: 1. D isorder of neck - M53.82 (Primary) 2 . M uscle spasms of neck - M62.838 3 . V itamin D deficiency - E55.9 4 . H ypokalemia - E87.6? 5. D iabetes mellitus screening - Z13.1 6 . S creening, lipid - Z13.220 Plan: * Treatment: 2. M uscle spasms of neck Start tiZANidine HCl Tablet, 2 MG, 1 tablet as needed, Orally, Three times a day, 30, Refills 1.? 3. V itamin D deficiency L AB: P-Vitamin D 25-Hydroxy (Collection Date & Time - 06/07/2024 11:27 AM) N ormal Value Reference Range V itamin D 25-Hydroxy 35.4 30.0-100.0 - ng/mL * Enrique Brower 06/09/2024 10:00:12 PM > Lab results are satisfactory, sent to to inform. Lily Israel 06/12/2024 4:48:54 PM > pt informed 4.?Hypokalemia?LAB: P-Basic Metabolic Panel (BMP) (Collection Date & Time - 06/07/2024 11:27 AM)?Normal* Value Reference Range B UN 11 6-20 - mg/dL * C alcium 10.3 8.6-10.4 - mg/dL * C hloride 102 97-108 - mmol/L * C O2 24 22-32 - mmol/L * C reatinine 0.89 0.50-1.00 - mg/dL * G lucose 94 65-99 - mg/dL * P otassium 5.1 3.5-5.3 - mmol/L * S odium 139 135-145 - mmol/L * e GFR by Creatinine 83 >59 - mL/min/1.73m2 * Enrique Brower 06/09/2024 10:00:12 PM > Lab results are satisfactory, sent to to inform. Lily Israel 06/12/2024 4:48:54 PM > pt informed 5.?Diabetes mellitus screening?LAB: P-Basic Metabolic Panel (BMP) (Collection Date & Time - 06/07/2024 11:27 AM)?Normal* Value Reference Range B UN 11 6-20 - mg/dL * C alcium 10.3 8.6-10.4 - mg/dL * C hloride 102 97-108 - mmol/L * C O2 24 22-32 - mmol/L * C reatinine 0.89 0.50-1.00 - mg/dL * G lucose 94 65-99 - mg/dL * P otassium 5.1 3.5-5.3 - mmol/L * S odium 139 135-145 - mmol/L * e GFR by Creatinine 83 >59 - mL/min/1.73m2 * Enrique Brower 06/09/2024 10:00:12 PM > Lab results are satisfactory, sent to to inform. Lily Israel 06/12/2024 4:48:54 PM > pt informed 6.?Screening, lipid?LAB: P-Lipid Panel (Collection Date & Time - 06/07/2024 11:27 AM)?Normal* Value Reference Range C holesterol / HDL Ratio 2.63 0.00-4.44 - Ratio * C holesterol 179 <200 - mg/dL * H DL Cholesterol 68 >39 - mg/dL * L DL Cholesterol (Calculation) 100 <130 - mg/d L * L DL/HDL Ratio 1.5 <3.3 - Ratio * N on-HDL Cholesterol 111 <130 - mg/dL * T riglycerides 55 <150 - mg/dL * Enrique Brower 06/09/2024 10:00:12 PM > Lab results are satisfactory, sent to to inform. Lily Israel 06/12/2024 4:48:54 PM > pt informed * Follow Up: v ia phone to report progress * Images: Billing Information: * Visit Code: 77149 Office Visit, New Pt., Level 4. * Procedure Codes: * Electronic signature of Paige Brower MD on 07/18/2025 at 02:54 PM EST Sign off status: Pending * Provider: Loulou Brower M.D. Date: Generated for Andrew sheets/Marcos/Barak on: 09/17/2024 02:54 PM EST History and Physical Notes * HPI (History of Present Illness) Category Sub-Category Detail Notes Category Not es Neck pain Pt complains of cervical neck pain for 3 days. States she has this pain before and it did eventually go away . Pt states she thinks sitting at a desk all day and looking up at computers may be the cause of pain. Pt states pain radiates down her arms at times as well HPI Patient is here today for Pt her e to establish care, previously seen by Dr. Kumar at [facility] in [place], [place] Examination Category Sub-Category Detail Notes Category Not es General Examination Heart: RSR Lungs: clear to auscultatio n Extremities: no leg edema General Appearance: NAD Peripheral pulses: normal (2+) bilatera lly Neck Vertebral spine tenderness: present over lower cervical spines Paraspinal muscle spasm: present bilater ally Range of motion of neck: limited rotatio ns Trapezius tenderness: present bilaterall y
--- OUTSIDE RECORDS SUMMARY | 2025-07-11 10:00 | XMS_ITS | Encounter Summary ---
Author Organization [place] [address] Care Team Providers Care Gear Room Keeper Name Role Phone Marcial Boyd MD Unavailable [phone] Enrique Kumar MD Primary Care Provider [phone] Reason for Visit * Reason Comments Sinusitis Left jaw pain, sinus pressure, sore throat, cough Encounter Details Date Type Department Care Team ([facility] Contact Info) Description 07/11/2025 10:00 AM EST Office Visit SEP Shasha [address] [place] [id number] Lana Ford, DIRECTOR [facility] [address] [place] [address] Iron deficiency anemia, unspecified iron deficiency anemia type (Primary Dx); Vitamin D deficiency; Acute bacterial sinusitis; Jaw pain Social History Tobacco Use Types Packs/Day Years Used Date Smoking Tobacco: Former Cigarettes 1 10 1 09/26/2002 - 07/26/2013 Smokeless Tobacco: Never Tobacco Cessation:Counseling Given: Not Answered Comments:quit in 2010, smoked for 10 years Alcohol Use Standard Drinks/Week Comments No 0 (1 standard drink = 0.6 oz pur e alcohol) Overall Financial Resource Strain (CARDIA) Bille r Date Recorded How hard is it for you to pa y for the very basics like food, housing, medical care, and heating? 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 file Not on file Not on file documented as of this encounter Last Filed Vital Signs Vital Sign Reading Time Taken Comments Blood Pressure 128/80 07/11/2025 9:55 AM EST Pulse 107 07/11/2025 9:55 AM EST Temperature 37.6 C (99.7 F) 07/11/2025 9:55 AM EST Respiratory Rate 20 07/11/2025 9:55 AM EST Oxygen Saturation 98% 07/11/2025 9:55 AM EST Inhaled Oxygen Concentration - - Weight 73.5 kg (162 lb) 07/11/2025 9:55 AM EST Height - - Body Mass Index 26.15 12/17/2024 8:01 AM EDT documented in this encounter Functional Status * Is the [...] 10:21 AM EDT Natividad Valdez RMA * PHQ-9 Total Score Answer Date of Assessment Author 0 07/11/2025 9:55 AM Lisa Guerrero RMA * Question Answer Date of Assessment Author Little interest or pleasure in doing things 0 07/11/2025 9:55 AM EST Lisa Rasmussen RMA Feeling down, depressed, or hopeless 0 07/11/2025 9:55 AM EST Lisa Rasmussen RMA PHQ-2 Total Score 0 07/11/2025 9:55 AM EST Lisa Rasmussen RMA * PHQ-2 Total Score Answer Date of Assessment Author 0 07/11/2025 9:55 AM Lisa Guerrero RMA documented as of this encounter Mental Status * Because of a physical, mental or emotional condition, does this person have serious difficulty concentrating, remembering or making decisions? Answer Entry Date Author No 03/27/2021 10:21 AM EDT Natividad Valdez RMA documented in this encounter Ordered Prescriptions Prescription Sig Dispense Quantity Refills Last Filled Start Date End Date predniSONE (DELTASONE) 10 mg Oral TabletIndications: Acute bacterial sinusitis Take 1 Tablet by mouth 2 times daily for 5 days. 10 Tablet 07/11/2025 5 azithromycin (ZITHROMAX) 250 mg Oral TabletIndications: Acute bacterial sinusitis Take 2 tablets (500 mg) on Day 1, followed by 1 tablet (250 mg) once daily on Days 2 through 5. 6 Tablet 07/11/2025 5 documented in this encounter Progress Notes * Lana Ford APRN - 07/11/2025 10:00 AM EST Assessment & Plan 1. Sinusitis: - Symptoms include sinus pressure, sore throat, and cough. Disease progression noted with improvement in throat pain but persistent dryness and irritation. - Examination revealed a red throat and postnasal drip. - An antibiotic and steroid regimen will be initiated to manage the sinusitis and potential bronchitis. 2. Left jaw pain: - Pain has been present for about 2 weeks, initially associated with drainage. The pain is localized and severe, affecting her ability to eat. - A steroid treatment will be administered to alleviate the pain. If the pain persists or recurs, she is advised to contact the office for further evaluation and potential alternative treatment strategies. Dx/Orders: Diagnoses and all orders for this visit: Iron deficiency anemia, unspecified iron deficiency anemia type - CBC WITH DIFF; Future - IRON+TIBC; Future Vitamin D deficiency - VITAMIN D 25 HYDROXY; Future Acute bacterial sinusitis - azithromycin (ZITHROMAX) 250 mg Oral Tablet; Take 2 tablets (500 mg) on Day 1, followed by 1 tablet (250 mg) once daily on Days 2 through 5. Dispense: 6 Tablet; Refill: 0 - predniSONE (DELTASONE) 10 mg Oral Tablet; Take 1 Tablet by mouth 2 times daily for 5 days. Dispense: 10 Tablet; Refill: 0 Jaw pain Return if symptoms worsen or fail to improve. Subjective Preeti Yi is a 45 y.o. female Chief Complaint Patient presents with Sinusitis Left jaw pain, sinus pressure, sore throat, cough History of Present Illness The patient is a 45-year-old female who presents for complaints of possible sinusitis, left jaw pain, sinus pressure, sore throat, and cough. She reports feeling unwell due to a recent sinus infection, which has improved today. Three days ago, she experienced severe throat pain with palpable bumps. Currently, her throat is not painful but tends to dry out easily. She describes a loss of taste and suspects the onset of bronchitis. She hasnot experienced any fevers but reports chills and frequent showers. No one else in her household is experiencing similar symptoms. She has been managing her symptoms with mopj-bsn-mvnewls medicationsincluding Claritin, vitamin D gummies, occasional iron supplements, Mucinex, Tylenol, and ibuprofen. She also reports severe jaw pain that has been present for approximately two weeks. Initially, she experienced some drainage and was uncertain if it originated from her ear or was related to temporomandibular joint (TMJ) issues, which she has not experienced since childhood. She does not report anyclicking sounds from her jaw but notes difficulty in opening her mouth to eat due to the pain. The pain is localized and does not radiate. It subsided for a few days before returning and subsequentlyleading to a sinus infection. She does not believe the pain is ear-related as she has no history ofear wax issues. She maintains good sleep hygiene. She has been taking iron supplements intermittently due to constipation and is considering incorporating iron-rich foods into her diet. She has previously undergone physical therapy for neck pain, which she found beneficial. However, she discontinued the therapy due to cost and has been managing the pain with massages from her and the application of heat and ice. Review of Systems Constitutional: Negative. Negative for activity change, chills and fever. HENT: Positive for congestion, sinus pressure, sinus pain and sore throat. Negative for ear discharge, ear pain, sneezing and trouble swallowing. Eyes: Negative. Negative for discharge and visual disturbance. Respiratory: Negative. Negative for cough, chest tightness, shortness of breath and wheezing. Cardiovascular: Negative. Gastrointestinal: Negative. Genitourinary: Negative for dysuria. Skin: Negative. Neurological: Negative for light-headedness and headaches. Psychiatric/Behavioral: Negative. Objective Blood pressure 128/80, pulse 107, temperature 99.7 ??F (37.6 ??C), temperature source Temporal, resp. rate 20, weight 162 lb (73.5 kg), last menstrual period 07/01/2025, SpO2 98%, not currently . Body mass index is 26.15 kg/m??. Physical Exam Vitals reviewed. HENT: Head: Normocephalic and atraumatic. Jaw: There is normal jaw occlusion. Right Ear: Hearing, tympanic membrane, ear canal and external ear normal. Left Ear: Hearing, tympanic membrane, ear canal and external ear normal. Nose: Congestion and rhinorrhea present. Rhinorrhea is purulent. Right Sinus: Maxillary sinus tenderness present. Left Sinus: Maxillary sinus tenderness present. Mouth/Throat: Lips: [place]. Mouth: Mucous membranes are moist. Pharynx: Posterior oropharyngeal erythema and postnasal drip present. Eyes: Conjunctiva/sclera: Conjunctivae normal. Cardiovascular: Rate and Rhythm: Normal rate and regular rhythm. Heart sounds: Normal heart sounds. Pulmonary: Effort: Pulmonary effort is normal. Breath sounds: Normal breath sounds. Musculoskeletal: Cervical back: Neck supple. Lymphadenopathy: Cervical: No cervical adenopathy. Skin: General: Skin is warm. Findings: No rash. Neurological: Mental Status: She is alert and oriented to person, place, and time. Psychiatric: Mood and Affect: Mood normal. Behavior: Behavior normal. Results The provider educated the patient (or legal business development representative) on the use of the ambient listening artificial intelligence tool, [employer]. They were informed that this AI tool processes the conversation to generate a clinical note with the expected benefit of improved accuracy while achieving an improved encounter experience for the patient and provider.?The provider explained that the medical information captured by the AI tool including, but not limited to, diagnoses and treatment plan would be protected in accordance with applicable privacy laws and that all diagnoses and treatment decisions would be made by the provider. The provider explained that the note generated will be reviewed bythe provider for accuracy to minimize potential errors.? The patient was given an opportunity to ask questions and opt out of proceeding with the use of the AI tool. After being informed of such information, the patient (or legal business development representative), and each individual in attendance with the patient, verbally consented to the use of the AI tool. documented in this encounter Plan of Treatment Not on file documented as of this encounter Goals Goal Patient Goal Type Associated Problems Recent Progress Patient-Stated? Author Maintain a healthy diet, exercise regularly and maintain an ideal body weight General No Mackenzie Mullen CCMA Stay Tobacco Free Lifestyle No Melisa Mckeon APRN documented as of this encounter Procedures Procedure Name Priority Date/Time Associated Diagnosis Comments IRON+TIBC Routine 07/11/2025 11:32 AM EST Iron deficiency anemia, unspecified iron deficiency anemia type VITAMIN D 25 HYDROXY Routine 07/11/2025 11:32 AM EST Vitamin D deficiency CBC WITH DIFF Routine 07/11/2025 11:32 AM EST Iron deficiency anemia, unspecified iron deficiency anemia type documented in this encounter Results * IRON+TIBC (07/11/2025 11:32 AM EST) Iron 105 30 - 160 mcg/dL 07/11/2025 4:01 PM EST [facility] Transferrin 267 200 - 360 mg/dL 07/11/2025 4:01 PM EST [facility] Transferrin Saturation 28 20 - 50 % 07/11/2025 4:01 PM EST [facility] TIBC 374 250 - 400 mcg/dL 07/11/2025 4:01 PM EST [facility] Blood VENOUS BLOOD / Unknown Venipuncture / Unknown 07/11/2025 11:32 AM EST 07/11/2025 11:32 AM EST us Lana Ford DIRECTOR [facility] CHEMISTRY ORDERABLES Elise ngo Result [facility], [facility] [address] , [place] [address] * CBC WITH DIFF (07/11/2025 11:32 AM EST) WBC 7.0 3.7 - 10.3 x10(3)/mcL 07/11/2025 2:48 PM EST [facility] RBC 4.57 3.90 - 5.20 x10(6)/mcL 07/11/2025 2:48 PM EST [facility] Hgb 13.2 11.2 - 15.7 g/dL 07/11/2025 2:48 PM EST [facility] Hct 41.5 34.0 - 45.0 % 07/11/2025 2:48 PM EST [facility] MCV 90.8 80.0 - 100.0 fL 07/11/2025 2:48 PM EST [facility] MCH 28.9 26.0 - 34.0 pg 07/11/2025 2:48 PM EST [facility] MCHC 31.8 30.7 - 35.5 g/dL 07/11/2025 2:48 PM EST [facility] RDW 13.5 <=14.9 % 07/11/2025 2:48 PM EST [facility] Platelet 328 155 - 369 x10(3)/mcL 07/11/2025 2:48 PM EST [facility] MPV 10.1 8.8 - 12.5 fL 07/11/2025 2:48 PM EST [facility] Neut Percent 66.6 % 07/11/2025 2:48 PM EST [facility] Comment:Neutrophils equals s egs plus bands Imm Gran% 0.1 % 07/11/2025 2:48 PM EST [facility] Comment:Automated count of m etamyelocytes, myelocytes and promyelocytes. Lymph Percent 22.6 % 07/11/2025 2:48 PM EST [facility] Menard Percent 8.2 % 07/11/2025 2:48 PM EST [facility] Eos Percent 1.9 % 07/11/2025 2:48 PM EST [facility] Baso Percent 0.6 % 07/11/2025 2:48 PM EST [facility] Neut # 4.6 1.6 - 6.1 x10(3)/mcL 07/11/2025 2:48 PM EST [facility] Comment:Neutrophils equals s egs plus bands IMMGRAN# 0.0 0.0 - 0.1 x10(3)/mcL 07/11/2025 2:48 PM EST [facility] Comment:Automated count of m etamyelocytes, myelocytes and promyelocytes. An absolute IG <0.1 is reported as 0.0. Lymph # 1.6 1.2 - 3.9 x10(3)/mcL 07/11/2025 2:48 PM EST [facility] Menard # 0.6 0.3 - 0.9 x10(3)/mcL 07/11/2025 2:48 PM EST [facility] Eos# 0.1 0.0 - 0.5 x10(3)/mcL 07/11/2025 2:48 PM EST [facility] Baso # 0.0 0.0 - 0.1 x10(3)/[facility] 07/11/2025 2:48 PM EST [facility] Blood VENOUS BLOOD / Unknown Venipuncture / Unknown 07/11/2025 11:32 AM EST 07/11/2025 11:32 AM EST Lana Ford DIRECTOR [facility] HEMATOLOGY ORDERABLES Fin al Result Performing Organization Address [facility] de Phone Number [facility] [address] , [place] [address] * VITAMIN D 25 HYDROXY (07/11/2025 11:32 AM EST) Vit D 25 OH 32.1 30.0 - 150.0 ng/mL 07/11/2025 4:12 PM EST [employer] Comment: Preferred: >= 30 ng/mL Insufficient: 21-29 ng/mL Deficient <= 20 ng/mL Possible Toxicity: >150 ng/mL Samples should not be taken from patients receiving therapy with high biotin doses (i.e. > 5 mg/day) until at least 8 hours following the last biotin administration. Blood VENOUS BLOOD / Unknown Venipuncture / Unknown 07/11/2025 11:32 AM EST 07/11/2025 11:32 AM EST Lana Ford APRN CHEMISTRY ORDERABLES Elise l Result Performing Organization Address [facility] de Phone Number [facility] [address] , [place] [address] documented in this encounter Visit Diagnoses Diagnosis Iron deficiency anemia, unspecified iron deficiency anemia type- Primary Vitamin D deficiency Unspecified vitamin D deficiency Acute bacterial sinusitis Acute sinusitis, unspecified Jaw pain documented in this encounter Discontinued Medications Medication Sig Discontinue Reason Start Date End Da te OYSTER SHELL CALCIUM-VIT D3 500 mg-5 mcg (200 unit) Oral TabletIndications:Vit muse D deficiency TAKE ONE TABLET BY MOUTH TWICE DAILY. Cancelled by 07/12/2023 07/11/2025 albuterol (PROVENTIL) 2.5 mg /3 mL (0.083 %) Inhl Solution for NebulizationIndicatio ns:Moderate persistent asthma without complication,Sinus pressure Take 3 mL by nebulization every 4 hours as needed for Wheezing. Cancelled by 11/20/2023 07/11/2025 albuterol (PROVENTIL HFA;VENTOLIN HFA) 90 mcg/actuation Inhl HFA Aerosol Inhaler Inhale 2 Puffs into the lungs 0800, 1200, 1600, 2000. Cancelled by 12/21/2023 07/11/2025 fluticasone propionate (FLONASE) 50 mcg/actuation Nasl Arjay, SuspensionIndications :COVID-19 virus infection,History of asthma 1 Arjay by Nasal route daily. Cancelled by 10/01/2024 07/11/2025 documented as of this encounter Historical Medications * This list may reflect changes made after this encounter. ferrous sulfate 325 mg (65 mg iron) Oral Tablet Take 325 mg by mouth daily. added in this encounter Care Teams Gear Room Keeper Relationship Specialty Start Date End Date Enrique Kumar MD [address] [place] [phone] PCP - General Internal Medicine 10/19/22 Marcial Boyd MD [address] [place] [address] [place] [id number] Internal Medicine-Cardiovascular Disease 07/28/20 documented as of this encounter
--- OUTSIDE RECORDS SUMMARY | 2025-07-15 05:15 | XMS_ITS ---
Author Organization [facility] Address [address] [place] [id number] Care Team Providers Care Supervisor Dock Name Role Phone Ly Ayala Primary Care Provider [phone] Fatemeh Gomez [phone] Allergies Allergen (clinical drug ingredient) Drug/Non Drug Allergy documented on EMR Reaction Allergy Type Onset Date Status acetaminophen / hydrocodone HYDROcodone-Acetam inophen stomach upset Drug Allergy Active Penicillin Unknown Drug Allergy Active Results Component Value Reference Range Notes Influenza Screen (in house) Reviewed date:07/15/2025 08:35:16 PM Interpretation:Negative Performing Lab: Notes/Report: Negative results neg CBC Fingerstick (in house) Reviewed date:07/15/2025 08:35:53 PM Interpretation: Performing Lab: Notes/Report: wbc 10.2 3.5 - 10 lym 17.2% 15 - 50 mid 4.9% 2 - 15 gran 77.9% 35 - 80 rbc 4.92 3.5 - 5.5 hgb 14.6 11.5 - 16.5 hct 43.1 35 - 55 mcv 87.5 75 - 100 mch 29.8 25 - 35 mchc 34.0 31 - 38 plat 260 100 - 400 Covid test (in house) Reviewed date:07/15/2025 08:35:37 PM Interpretation:Negative Performing Lab: Notes/Report: Negative Result: neg REASON FOR VISIT UPPER RESPIRATORY Medications Medication SIG (Take, Route, Frequency, Duration) Notes Start Date End Date Status Vitamin D 50 MCG (1999) 1 capsule Ora lly Once a day; Duration: 30 day(s) Active Mucinex 600 MG 1 tablet as needed O rally every 12 hrs Active Claritin 10 MG 1 tablet Orally Once a day Active Promethazine-DM 6.25-15 MG/5ML 5 mL as needed Orally every 6 hrs 07/15/2025 Active Cefuroxime Axetil 500 MG 1 tablet Orally every 12 hrs; Duration: 7 days 07/15/2025 Active Vitamin C 500 MG as directed Orally Active tiZANidine HCl 2 MG 1 tablet as needed O rally Three times a day 06/07/2024 Active Albuterol Sulfate HFA 108 (90 Base) MCG/ACT 1 puff as needed Inhalation every 4 hrs Active predniSONE 10 MG 1 tablet with food o r milk Orally Once a day Active Vital Signs Blood pressure systolic 120 mm Hg 07/15/20 Blood pressure diastolic 74 mm Hg 025 Heart Rate 97 /min 07/15/2025 Height 66 in 07/15/2025 Weight 154.5 lbs 07/15/2025 BMI 24.93 kg/m2 07/15/2025 Encounters Encounter Location Date Provider Diagnosis [facility] [address], [place] [id number] 07/15/2025 Fatemeh Gomez Acute upper respiratory infection 465.9 Assessments Encounter Date Diagnosis (ICD Code) Assessment Notes Treatment Notes Treatment Clinical Notes Section Notes 07/15/2025 Acute upper respiratory infection (ICD-10 - 465.9) fluids, rest, supportive measures for fever/symptom relief; has not been using her inhaler; will start tid and q2h prn until SOB, chest congestion and cough have resolved; will add new abx Plan Of Treatment Medication Medication Name Sig Start Date Stop Date Notes Claritin 10 MG 1 tablet Orally Once a day Promethazine-DM 6.25-15 MG/5ML 5 mL as needed Orally every 6 hrs 07/15/2025 Cefuroxime Axetil 500 MG 1 tablet Orally every 12 hrs; Duration: 7 days 07/15/2025 Vitamin C 500 MG as directed Orally Albuterol Sulfate HFA 108 (9 0 Base) MCG/ACT 1 puff as needed Inhalation every 4 hrs predniSONE 10 MG 1 tablet with food o r milk Orally Once a day Treatment Notes Assessment Notes Acute upper respiratory infection fluids , rest, supportive measures for fever/symptom relief; has not been using her inhaler; will start tid and q2h prn until SOB, chest congestion and cough have resolved; will add new abx Next Appt Details Follow Up: prn, Reason: Provider Name:Enriquesandor Marina ry, 07/18/2025 02:00:00 PM, [address], [address], [place], [place], [id number], Progress Notes * Kishore ROSAB: 2 (45 yo F)Acc No.[id number]:07/15/2025 Progress Notes Patient: Preeti FOSTER Provider: CAITLIN Almanza :1980 A ge:45 Y S ex:Female Date:07/15/2025 Address:[address] [facility] [id number] Pcp:Ly Ayala Subjective: * Chief Complaints: * 1 . UPPER RESPIRATORY. * HPI: E NT/respiratory: has been able to eat and drink. 45 year old female presents with c/o sore throat f eels scratchy, swallowing painful. Pt states she is having in her jaw. Pt states she was seen by a MOTOR VEHICLE ASSEMBLER close to home last and they did not check her for anything. Pt states they prescribed her prednisone 10mg. c/o cough g reenish yellow sputum production. Pt states it is worse at night . c/o nasal congestion o ff and on, runny nose, green drainage, yellow drainage. c/o Fever. c/o rhinorrhea. c/o post nasal drainage. c/o facial pain/pressure. c/o Short of Breath w ith exertion. c/o headache p ressure like sensation. c/o chest congestion w ith production of sputum, occasional tightness in chest but more at night?. Denies : smoking. D enies : body aches. * ROS: D ERMATOLOGY: no R bina. n o H levy. G ASTROENTEROLOGY: no N ausea. n o V omiting. n o D iarrhea.? U ROLOGY: no D ifficulty urinating. n o B lood in urine. * Medical History: H eadache, Thorne's Palsy, Asthma, normal spirometry 2017, Allergic Rhinitis, Superficial venous Thrombosis - Right Arm after IV infiltrated, Asthma. * Surgical History: L aparoscopy . * Hospitalization/Major Diagno stic Procedure: D enies Past Hospitalization. * Family History: F ather: alive 77 yrs, diagnosed with Cancer, Hypertension, Stroke. M other: alive 67 yrs.?3 brother(s) . . * Social History: C URRENT TOBACCO USE: No S moking Status: Patient does NOT smoke. C affeine: yes, frequency: 1 cup of coffee daily. Marital Status: . Alcohol: no. Sexually active: yes. Travel ouside [place]: no. * Medications: T aking Vitamin C 500 MG Capsule as directed Orally , Taking Mucinex 600 MG Tablet Extended Release 12 Hour 1 tablet as needed Orally every 12 hrs , Taking predniSONE 10 MG Tablet 1 tablet with food or milk Orally Once a day , Taking Albuterol Sulfate HFA 108 (90 Base) MCG/ACT Aerosol Solution 1 puff as needed Inhalation every 4 hrs , Taking Claritin 10 MG Tablet 1 tablet Orally Once a day , Taking Vitamin D 50 MCG (2000 UT) Capsule 1 capsule Orally Once a day , Taking tiZANidine HCl 2 MG Tablet 1 tablet as needed Orally Three times a day , Medication List reviewed and reconciled with the patient * Allergies: P enicillin, HYDROcodone-Acetaminophen: stomach upset. Objective: * Vitals: W t: 154.5, Temp: 97.9, BP: 120/74, HR: 97, Nurse: ADALGISA, Ht: 66, BMI:24.93. * Examination: G eneral Examination: General Appearance: N AD, alert; appears not to feel well.?HEENT: s clera and conjunctiva clear, PERRLA, TM's normal, translucent. O ral cavity:?no erythema; dry mucosa. N arturo: s upple, no lymphadenopathy. H eart: R RR. L ungs: d ecreased BS in bilateral bases posterior; audible wheeze in base. N eurologic Exam: a lert and oriented. Assessment: * Assessment: 1. A cute upper respiratory infection - 465.9 (Primary) Plan: * Treatment: Value Reference Range r esults neg * Lyly Dietrich 07/15/2025 11 :48:18 AM EST > Provider reviewed results while patient in office.Bernadette Gomezharine 07/15/2025 08:35:02 PM EST > ?LAB: Covid test (in house) (Collection Date & Time - 07/15/2025)?Negative* Value Reference Range R esult: neg * Tamera Dietrichby 07/15/2025 11 :48:43 AM EST > Provider reviewed results while patient in office.GomezBernadetteFatemeh 07/15/2025 08:35:33 PM EST > Notes: fluids, rest, supportive measures for fever/symptom relief; has not been using her inhaler; will start tid and q2h prn until SOB, chest congestion and cough have resolved; will add new abx ? * Labs: * L ab: CBC Fingerstick (in house) (Collection Date & Time - 07/15/2025) Value Reference Range w bc 10.2 3.5 - 10 * l ym 17.2% 15 - 50 * m id 4.9% 2 - 15 * g ran 77.9% 35 - 80 * r bc 4.92 3.5 - 5.5 * h gb 14.6 11.5 - 16.5 * h ct 43.1 35 - 55 * m cv 87.5 75 - 100 * m ch 29.8 25 - 35 * m chc 34.0 31 - 38 * p lat 260 100 - 400 * Lyly Dietrich 07/15/2025 10 :34:12 AM EST > Provider reviewed results while patient in office.GomezBernadetteFatemeh 07/15/2025 08:35:50 PM EST > * Procedure Codes: 3 6416 CAPILLARY BLOOD DRAW, 81154 CBC WITH AUTO DIFF, 74252 Flu Test- Nasal Swab, Modifiers: QW , 24900 COVID TEST IN HOUSE, Modifiers: QW * Follow Up: p rn * Images: Billing Information: * Visit Code: 44934 Office Visit, Est Pt., Level 3. * Procedure Codes: 36054 CAPILLARY BLOOD DRAW. 33840 CBC WITH AUTO DIFF. 51481 Flu Test- Nasal Swab. Modifiers: QW 72820 COVID TEST IN HOUSE. Modifiers: QW * Electronic signature of Rosario stein ELIAZAR Gomez on 07/18/2025 at 02:54 PM EST Sign off status: Pending * Provider: CAITLIN Almanza Date: 09/14/2024 Generated for Andrew sheets/Marcos/Barak on: 09/17/2024 02:54 PM EST History and Physical Notes * HPI (History of Present Illness) Category Sub-Category Detail Notes Category Not es ENT/respiratory sore throat feels scratchy, swallowing painful. Pt states she is having in her jaw. Pt states she was seen by a [employer] VE[employer]ER close to home last and they did not check her for anything. Pt states they prescribed her prednisone 10mg facial pain/pressure Short of Breath with exertion cough greenish yellow sput um production. Pt states it is worse at night Fever post nasal drainage headache pressure like sensat ion chest congestion with production of s putum, occasional tightness in chest but more at night rhinorrhea nasal congestion off and on, runny no se, green drainage, yellow drainage smoking body aches Examination Category Sub-Category Detail Notes Category Not es General Examination HEENT: sclera and c onjunctiva clear, PERRLA, TM's normal, translucent Heart: RRR Lungs: decreased BS in bila teral bases posterior; audible wheeze in base General Appearance: NAD, alert; appears not to feel well Neurologic Exam: alert and oriented Neck: supple, no lymphaden opathy Oral cavity: no erythema; dry muc deysi
--- OUTSIDE RECORDS SUMMARY | 2025-07-18 14:54 | XMS_ITS ---
Author Organization Unknown ENCOUNTERS Encounter Performer Location Date Diagnosis Diagnosis Status Emergency [place] [id number] [facility] [address] [place] [address] [id number] JD Pre Admit [place] [id number] [facility] [address] [place] [address] [id number] Emergency [address] [place] [address] [id number] JD Pre Admit [address] [place] [address] [id number] Pre Admit [address] [place] [address] [id number] Emergency [address] [place] [address] [id number] JD Emergency [address] [place] [address] [id number] JD Pre Admit [address] [facility] [place] [address] [id number] Pre Admit [address] [place] [address] [id number] Emergency [address] [facility] [place] [address] [id number] JD Pre Admit [facility] [address] [facility] [address] [facility] [place] [address] [id number] Emergency [address] [facility] [place] [address] [id number] JD Emergency [place] [id number] [facility] [address] [facility] [place] [address] [id number] JD Emergency [place] [id number] [facility] [address] [facility] [place] [address] [id number] LWBS *Note: Encounters from your own facility or health system may be excluded. Allergies, Adverse Reactions, Alerts Allergen Type Severity Identification Date nalbuphine drug allergy 2 20180502 tramadol drug allergy 2 [id number] Penicillins drug allergy 2 [id number] Medications Name Date Quantity Days Supplied GPI Number
--- OUTSIDE RECORDS SUMMARY | 2025-07-18 14:55 | XMS_ITS | Encounter Summary ---
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 [...] Author No 03/27/2021 10:21 AM EDT Natividad Valedz RMA * Does this person have difficulty [...] in doing things 0 07/11/2025 9:55 AM Lisa Schmidt RMA Feeling down, depressed, or hopeless 0 07/11/2025 9:55 AM Lisa Schmidt RMA PHQ-2 Total Score 0 07/11/2025 9:55 AM Lisa Schmidt RMA * PHQ-2 Total Score Answer Date [...] on filedocumented in this encounter Care Teams Retort Feeder Ground Bone Relationship Specialty Start Date End Date Enrique Kumar MD [address] [facility] [address] [place], [place] [address] PCP - General Internal Medicine 10/19/22 Marcial Boyd MD [address] [place] [address] [place] [address] Internal Medicine-Cardiovascular Disease 07/28/20 documented as of this encounter
--- OUTSIDE RECORDS SUMMARY | 2025-07-18 14:55 | XMS_ITS | Clinical Summary ---
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 DIRECTOR PAYER Gender Identity Not on file Sexual Orientation [...] Screening Combo 1980 Dental Cleaning/Exam 1982 HPV only / HPV + Pap 1982 Pap only testing 1982 HPV Immunization (1 - 2-dose series) 1993 Hepatitis B Immunization (1 of 3 - 19+ 3-dose series) 2001 Breast Cancer Screening 2012 Covid-19 Immunization (2 - 2 season) 2025 09/24/2020 Influenza Immunization (#1) 2025 05/08/2020 Tetanus Diphtheria and Pertu ssis Immunization (2 - Td or Tdap) 04/01/2026 04/01/2016 HIB Immunization Aged Out No longer e ligible based on patient's age to complete this topic Hepatitis A Immunization Aged Out No longer eligible based on patient's age to complete this topic Pneumococcal Immunization Aged Out No longer eligible based on patient's age to complete this topic Polio Immunization Aged Out No longer eligible based on patient's age to complete this topic Varicella Immunization Aged Out No lo nger eligible based on patient's age to complete this topic Insurance Care Teams Blender Machine Operator Relationship Specialty Start Date End Date Audi Whelan [place] [id number] PCP - General Family Medicine 02/17/23
--- OUTSIDE RECORDS SUMMARY | 2025-07-18 14:55 | XMS_ITS | Clinical Summary ---
Author Organization [facility] Address [address] [place], [place] [address] Phone Care Team Providers Care Panel Raiser Operator Name Role Phone Marcial Boyd MD Unavailable [phone] Enrique Kumar MD Primary Care Provider [phone] Allergies Active Allergy Reactions Criticality Noted Date Comments Penicillins Other (See Comments) 12/25/2017 Not sure the reaction, just was told she was from a child Medications loratadine (CLARITIN) 10 mg Oral Tablet Take 10 mg by mouth daily. Active Cholecalcifero l, Vitamin D3, 50 mcg (2,000 unit) Oral CapsuleIndicat ions:Sinus pressure Take by mouth. Activ e ferrous sulfate 325 mg (65 mg iron) Oral Tablet Take 325 mg by mouth daily. Active OYSTER SHELL CALCIUM-VIT D3 500 mg-5 mcg (200 unit) Oral TabletIndicati ons:Vitamin D deficiency TAKE ONE TABLET BY MOUTH TWICE DAILY. 30 Tablet 4 07/12/20 23 025 Discontinu ed(Cancell ed by MD) albuterol (PROVENTIL) 2.5 mg /3 mL (0.083 %) Inhl Solution for NebulizationIn dications:Mode rate persistent asthma without complication,S inus pressure Take 3 mL by nebulization every 4 hours as needed for Wheezing. 180 mL 2 11/20/19 24 025 Discontinu ed(Cancell ed by ) albuterol (PROVENTIL HFA;VENTOLIN HFA) 90 mcg/actuation Inhl HFA Aerosol Inhaler Inhale 2 Puffs into the lungs 0800, 1200, 1600, 2000. 1 Each 1 12/21/19 24 025 Discontinu ed(Cancell ed by MD) fluticasone propionate (FLONASE) 50 mcg/actuation Nasl [place], SuspensionIndi cations:COVID- 19 virus infection,Hist ory of asthma 1 [place] by Nasal route daily. 1 Each 10/01/19 25 025 Discontinu ed(Cancell ed by MD) azithromycin (ZITHROMAX) 250 mg Oral TabletIndicati ons:Acute bacterial sinusitis Take 2 tablets (500 mg) on Day 1, followed by 1 tablet (250 mg) once daily on Days 2 through 5. 6 Tablet 07/11/20 25 025 predniSONE (DELTASONE) 10 mg Oral TabletIndicati ons:Acute bacterial sinusitis Take 1 Tablet by mouth 2 times daily for 5 days. 10 Tablet 07/11/20 025 Active Problems Problem Noted Date Diagnosed Date Jaw pain 07/11/2025 Iron deficiency anemia 07/11/2025 Cervical radiculopathy 03/12/2025 Osteoarthritis of spine with radiculopathy, cerv ical region 12/17/2024 Assessment & Plan (12/17/2024 9:41 AM EDT): -MRI cervical spine order faxed to [facility], patient provided number to schedule -Provided number to chiropractor for neck pain and stiffness Deviated septum 01/10/2018 Vitamin D deficiency 12/26/2017 Assessment & Plan (12/17/2024 9:41 AM EDT): Orders: VITAMIN D 25 HYDROXY; Future Moderate persistent asthma without complication 12/25/2017 Family history of heart disease 12/25/2017 Anxiety and depression 12/25/2017 Encounters Date Type Department Care Team Description 07/15/2025 Results Follow-Up [facility] [place] [address] [place] [address] Lana Ford, TERRAZZO TILE SETTER VITAMIN D 25 HYDROXY, CBC WITH DIFF, IRON+TIBC 07/11/2025 10:00 AM EST Office Visit [facility] [place] [facility] [address] [place] [address] Lana Ford, ELIAZAR Iron deficiency anemia, unspecified iron deficiency anemia type (Primary Dx); Vitamin D deficiency; Acute bacterial sinusitis; Jaw pain 07/11/2025 Travel from Last 3 Months Immunizations Immunization Administration [...] Start Date Job End Date works at [employer]. Not on file Not on file Not on file Last Filed Vital Signs [...] (162 lb) 07/11/2025 9:55 AM EST Height 167.6 cm (5' 6 ) 12/17/2024 8:01 AM EDT Body Mass Index 26.15 12/17/2024 8:01 AM EDT Plan of Treatment Health Maintenance Due Date Last Done Comments Hepatitis B Vaccine (1 of 3 - 19+ 3-dose series) 2001 Pneumococcal Vaccine 0-49 (1 of 2 - PCV) 2001 HPV/Pap Cotest 2012 Cervical Cancer Screening 12/20/2019 Pap Smear 12/20/2019 12/19/2016 Breast Cancer Screening 2022 Annual Wellness Exam 10/06/2024 10/06/2023 COVID-19 Vaccine (2 - 2024-2 6 season) 2025 09/24/2020 Influenza Vaccine (#1) 2025 0, 04/21/2020, 07/22/2019 DTaP/TDaP/Td (2 - Td or Tdap) 04/01/2026 04/01/2016 Meningococcal B Vaccine Aged Out No l onger eligible based on patient's age to complete this topic Goals Goal Patient Goal Type Associated Problems Recent Progress Patient-Stated? Author Maintain a healthy diet, exercise regularly and maintain an ideal body weight General No Mackenzie Mullen CCMA Stay Tobacco Free Lifestyle No Melisa Mckeon APRN Procedures Procedure Name Priority Date/Time Associated Diagnosis Comments IRON+TIBC Routine 07/11/2025 11:32 AM EST Iron deficiency anemia, unspecified iron deficiency anemia type CBC WITH DIFF Routine 07/11/2025 11:32 AM EST Iron deficiency anemia, unspecified iron deficiency anemia type VITAMIN D 25 HYDROXY Routine 07/11/2025 11:32 AM EST Vitamin D deficiency from Last 3 Months Results * IRON+TIBC (07/11/2025 11:32 AM EST) Iron 105 30 - 160 mcg/dL 07/11/2025 4:01 PM EST [facility] Transferrin 267 200 - 360 mg/dL 07/11/2025 4:01 PM EST [facility] Transferrin Saturation 28 20 - 50 % 07/11/2025 4:01 PM EST [facility] TIBC 374 250 - 400 mcg/dL 07/11/2025 4:01 PM EST [facility] Blood VENOUS BLOOD / Unknown Venipuncture / Unknown 07/11/2025 11:32 AM EST 07/11/2025 11:32 AM EST Lana Ford APRN CHEMISTRY ORDERABLES Elise l Result Performing Organization Address City/[facility] Co de Phone Number [facility] [address] [facility] , [place] [address] * VITAMIN D 25 HYDROXY (07/11/2025 11:32 AM EST) Vit D 25 OH 32.1 30.0 - 150.0 ng/mL 07/11/2025 4:12 PM EST [facility] Comment: Preferred: >= 30 ng/mL Insufficient: 21-29 [...] Ford APRN CHEMISTRY ORDERABLES Elise l Result [facility] [address] [facility] , [place] [address] * CBC WITH DIFF (07/11/2025 11:32 AM [...] 2:48 PM EST [facility] Neut Percent 66.6 % 07/11/2025 2:48 PM EST [facility] Comment:Neutrophils equals s egs plus bands Imm Gran% 0.1 % 07/11/2025 2:48 PM EST [facility] Comment:Automated count of m etamyelocytes, myelocytes and promyelocytes. Lymph Percent 22.6 % 07/11/2025 2:48 PM EST [facility] [place] Percent 8.2 % 07/11/2025 2:48 PM EST [facility] Eos Percent 1.9 % 07/11/2025 2:48 PM EST [facility] Baso Percent 0.6 % 07/11/2025 2:48 PM EST [facility] Neut # 4.6 1.6 - 6.1 x10(3)/[facility] 07/11/2025 2:48 PM EST [facility] Comment:Neutrophils equals s egs plus bands IMMGRAN# 0.0 0.0 - 0.1 x10(3)/mcL 07/11/2025 2:48 PM EST [facility] Comment:Automated count of m etamyelocytes, myelocytes and promyelocytes. An absolute IG <0.1 is reported as 0.0. Lymph # 1.6 1.2 - 3.9 x10(3)/[facility] 07/11/2025 2:48 PM EST [facility] [place] # 0.6 0.3 - 0.9 x10(3)/[facility] 07/11/2025 2:48 PM EST [facility] Eos# 0.1 0.0 - 0.5 x10(3)/[facility] 07/11/2025 2:48 PM EST [facility] Baso # 0.0 0.0 - 0.1 x10(3)/[facility] 07/11/2025 2:48 PM EST [facility] Blood VENOUS BLOOD / Unknown Venipuncture / Unknown 07/11/2025 11:32 AM EST 07/11/2025 11:32 AM EST us Lana Ford APRN HEMATOLOGY ORDERABLES Fin al Result Performing Organization Address City/State/[facility] Co de Phone Number [facility] [address] [facility] , [address] [place] [phone] from Last 3 Months Insurance Care Teams Panel Raiser Operator Relationship Specialty Start Date End Date Enrique Kumar MD [address] [place] [address] [place] [address] PCP - General Internal Medicine 10/19/22 Marcial Boyd MD [address] [place] [address] [place] [address] Internal Medicine-Cardiovascular Disease 07/28/20
--- OUTSIDE RECORDS SUMMARY | 2025-07-18 14:55 | XMS_ITS | Patient Health Record ---
Author Organization [facility] Address [address] [facility] [address] [place] [id number] Care Team Providers Care Transport Assistant Name Role Phone Ly Ayala Primary Care Provider [phone] Enrique Brower Unavailable [phone] Fatemeh Gomez Unavailable [phone] Allergies Allergen (clinical drug ingredient) Drug/Non Drug Allergy documented on EMR Reaction Allergy Type Onset Date Status acetaminophen / hydrocodone HYDROcodone-Acetam inophen stomach upset Drug Allergy Active Penicillin Unknown Drug Allergy Active Results Component Value Reference Range Notes Influenza Screen (in house) Reviewed date:07/15/2025 08:35:16 PM Interpretation:Negative Performing Lab: Notes/Report: Negative results neg Covid test (in house) Reviewed date:07/15/2025 08:35:37 PM Interpretation:Negative Performing Lab: Notes/Report: Negative Result: neg Influenza Screen (in house) (Not yet reviewed by provider) Interpretation: Performing Lab: Notes/Report: results neg CBC Fingerstick (in house) ( Not yet reviewed by provider) Interpretation: Performing Lab: Notes/Report: wbc 9.0 3.5 - 10 lym 47.8% 15 - 50 mid 9.2% 2 - 15 gran 43.0 35 - 80 rbc 5.16 3.5 - 5.5 hgb 15.0 11.5 - 16.5 hct 44.9 35 - 55 mcv 87.0 75 - 100 mch 29.1 25 - 35 mchc 33.4 31 - 38 plat 179 100 - 400 Covid test (in house) (Not y et reviewed by provider) Interpretation: Performing Lab: Notes/Report: Result: neg CBC Fingerstick (in house) Reviewed date:07/15/2025 [...] - 38 plat 260 100 - 400 Medications Medication SIG (Take, Route, Frequency, Duration) Notes Start Date End Date Status Cefuroxime Axetil 500 MG 1 tablet Orally every 12 hrs; Duration: 7 days 07/15/2025 Not-Taking Promethazine-DM 6.25-15 MG/5ML 5 mL as needed Orally every 6 hrs 07/15/2025 Active Vitamin D 50 MCG (2000 UT) 1 capsule Orally Once a day; Duration: 30 day(s) Active tiZANidine HCl 2 MG 1 tablet as needed Orally Three times a day 06/07/2024 Active Mucinex 600 MG 1 tablet as needed Orally every 12 hrs Active Albuterol Sulfate HFA 108 (90 Base) MCG/ACT 1 puff as needed Inhalation every 4 hrs; Duration: 30 days Active Claritin 10 MG 1 tablet Orally Once a day Active Vitamin C 500 MG as directed Orally Active Problems Problem Type SNOMED Code ICD Code Onset Dates Problem Status W/U Status Risk Notes Problem History of multiple allergies (situation) (293780692) Allergies (995.3) Active confirmed Problem Vitamin D deficiency (12974472) Vitamin D deficiency (E55.9) Active confirmed Problem Solitary nodule of lung (544738685) Lung nodule (R91.1) Active confirmed Problem Disorder of neck (084342836) Disorder of neck (M53.82) Active confirmed Vital Signs Heart Rate 94 /min 07/18/2025 Blood pressure diastolic 68 mm Hg 07/18/2025 Height 66 in 07/18/2025 Blood pressure systolic 120 mm Hg 07/18/2025 Weight 157.6 lbs 07/18/2025 BMI 25.43 kg/m2 07/18/2025 Encounters Encounter Location Date Provider Diagnosis [place] [address] [facility] [address] [place] [id number] 07/15/2025 Fatemeh Gomez [facility] 465.9 [facility] [address] [place] [id number] 07/18/2025 Enrique Brower Viral URI J06.9 and Cough, unspecified type R05.9 [facility] [address] [place] [id number] 07/16/2025 Fatemeh Gomez Acute upper respiratory infection 465.9 Assessments Encounter Date Diagnosis (ICD Code) Assessment Notes Treatment Notes Treatment Clinical Notes Section Notes 07/15/2025 Acute upper respiratory infection (ICD-10 - 465.9) fluids, rest, supportive measures for fever/symptom relief; has not been using her inhaler; will start tid and q2h prn until SOB, chest congestion and cough have resolved; will add new abx 07/16/2025 Acute upper respiratory infection (ICD-10 - 465.9) 07/18/2025 Viral URI (ICD-10 - J06.9) 07/18/2025 Cough, unspecified type (ICD-10 - R05.9) Plan Of Treatment Pending Test Test Name Order Date Influenza Screen (in house) 07/18/2025 CXR 07/18/2025 CBC Fingerstick (in house) 07/18/2025 H-UPPER RESP, PCR 07/18/2025 Covid test (in house) 07/18/2025 Next Appt Details Provider Name:Enrique Marina , 07/18/2025 02:00:00 PM, [address], [place], [id number], Insurance Providers Payer Name Payer Address Payer Phone Subscriber Number Group Number Insured Name Patient Relationship to Insured Coverage Start Date Coverage End Date [facility] [address] [address] [place] [address] [phone] [id number] Preeti Yi Self - patient is the insured Medications [...]
--- OUTSIDE RECORDS SUMMARY | 2025-07-18 14:55 | XMS_ITS | Encounter Summary ---
Author Organization [place] [address] Care Team Providers Care Veneer Puller Name Role Phone Marcial Boyd MD Unavailable [phone] Enrique Kumar MD Primary Care Provider [phone] Encounter Details Date Type Department Care Team (Late st Contact Info) Description 07/15/2025 Results Follow-Up [facility] [address] 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 Answer Date of Assessment Author No 03/27/2021 10:21 AM Natividad Ferrara RMA * Because of a physical, mental or emotional condition, does this person have difficulty doing errands alone such as visiting a doctor's office or shopping? Answer Date of Assessment Author No 03/27/2021 10:21 AM Natividad Ferrara RMA documented as of this encounter Mental Status * Because of a physical, mental or emotional condition, does this person have serious difficulty concentrating, remembering or making decisions? Answer Entry Date Author No 03/27/2021 10:21 AM Natividad Ferrara RMA documented in this encounter Plan of [...] on filedocumented in this encounter Care Teams Veneer Puller Relationship Specialty Start Date End Date Enrique Kumar MD [address] [place] [address] [place] [phone] PCP - General Internal Medicine 10/19/22 Marcial Boyd MD [address] [place] [address] [place] [id number] Internal Medicine-Cardiovascular Disease 07/28/20 documented as of this encounter
--- NOTE | 2025-07-18 14:56 | XR_ITS ---
FINAL REPORT CLINICAL HISTORY: COUGH x 8 days, viral illness COMPARISON: 12/10/2022 FINDINGS: PA and lateral views of the chest were obtained. The cardiac and mediastinal silhouettes are within normal limits. The lungs are clear. There is no pleural effusion or pneumothorax. No acute osseous abnormality is identified. IMPRESSION: No radiographic evidence of acute cardiac or pulmonary disease. Reviewed, Interpreted and Dictated by Kate Pulliam MD Transcribed by Omayra Radford Authenticated and [facility]
[2025-07-18 15:09] LABS: Coronavirus 19, PCR Not Detected (NotDetected); Influenza A, PCR Not Detected (NotDetected); Influenza B, PCR Not Detected (NotDetected)
== END 2025-07-18 23:59 | disposition home or self-care (01) ==
LOC: RAD 14:52
PROVIDERS: PCP Family Medicine; Visit Provider Family Medicine
DX: J06.9 Acute upper respiratory infection, unspecified (principal)
CPT/HCPCS: 71046; 87631

== ENCOUNTER 2025-07-18 16:48 | Emergency (ER) | payer OTHER, SELFPAY ==
--- OUTSIDE RECORDS SUMMARY | 2025-07-11 10:00 | XMS_ITS | Encounter Summary ---
Author Organization [place] [address] Care Team Providers Care Ditch Digger Name Role Phone Marcial Boyd MD Unavailable [phone] Enrique Kumar MD Primary Care Provider [phone] Reason for Visit * Reason Comments Sinusitis Left jaw pain, sinus pressure, sore throat, cough Encounter Details Date Type Department Care Team ([facility] Contact Info) Description 07/11/2025 10:00 AM EST Office Visit SEP Shasha [address] 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 Mouth/Throat: Lips: [place]. Mouth: Mucous membranes are moist. Pharynx: Posterior [...] The provider educated the patient (or legal publications sales representative) on the use of the ambient listening artificial intelligence tool, [employer]. They were informed that this AI tool [...] of such information, the patient (or legal publications sales representative), and each individual in attendance with [...] 07/11/2025 11:32 AM EST us Lana Ford SECURITY SYSTEMS INSTALLER CHEMISTRY ORDERABLES Elise ngo Result [facility] [address] , [place] [address] * CBC WITH DIFF (07/11/2025 [...] 07/11/2025 2:48 PM EST [facility] Neut Percent 66.6 % 07/11/2025 2:48 PM EST [facility] Comment:Neutrophils equals s egs plus bands Imm Gran% 0.1 % 07/11/2025 2:48 PM EST [facility] Comment:Automated count of m etamyelocytes, myelocytes and promyelocytes. Lymph Percent 22.6 % 07/11/2025 2:48 PM EST [facility] Arthur Percent 8.2 % 07/11/2025 2:48 PM EST [facility] Eos Percent 1.9 % 07/11/2025 2:48 PM EST [facility] Baso Percent 0.6 % 07/11/2025 2:48 PM EST [facility] Neut # 4.6 1.6 - 6.1 x10(3)/mcL 07/11/2025 2:48 PM EST [facility] Comment:Neutrophils equals s egs plus bands IMMGRAN# 0.0 0.0 - 0.1 x10(3)/mcL 07/11/2025 2:48 PM EST [facility] Comment:Automated count of m etamyelocytes, myelocytes and promyelocytes. An absolute IG <0.1 is reported as 0.0. Lymph # 1.6 1.2 - 3.9 x10(3)/mcL 07/11/2025 2:48 PM EST [facility] Arthur # 0.6 0.3 - 0.9 x10(3)/mcL 07/11/2025 2:48 PM EST [facility] Eos# 0.1 0.0 - 0.5 x10(3)/mcL 07/11/2025 2:48 PM EST [facility] Baso # 0.0 0.0 - 0.1 x10(3)/[facility] 07/11/2025 2:48 PM EST [facility] Blood VENOUS BLOOD / Unknown Venipuncture / Unknown 07/11/2025 11:32 AM EST 07/11/2025 11:32 AM EST Lana Ford SECURITY SYSTEMS INSTALLER HEMATOLOGY ORDERABLES Fin al Result Performing Organization Address [facility] de Phone Number [facility] [address] , [place] [address] * VITAMIN D 25 HYDROXY (07/11/2025 11:32 AM EST) Vit D 25 OH 32.1 30.0 - 150.0 ng/mL 07/11/2025 4:12 PM EST [employer] Comment: Preferred: >= 30 ng/mL Insufficient: 21-29 [...] ORDERABLES Elise l Result Performing Organization Address [facility] de Phone Number [employer] [address] , [place] [address] documented in this encounter Visit [...] 07/11/2025 fluticasone propionate (FLONASE) 50 mcg/actuation Nasl Brinson, SuspensionIndications :COVID-19 virus infection,History of asthma 1 Brinson by Nasal route daily. Cancelled by 10/01/2024 07/11/2025 documented as of this encounter Historical Medications * This list may reflect changes made after this encounter. ferrous sulfate 325 mg (65 mg iron) Oral Tablet Take 325 mg by mouth daily. added in this encounter Care Teams Ditch Digger Relationship Specialty Start Date End Date Enrique Kumar MD [address] [place] [phone] PCP - General Internal Medicine 10/19/22 Marcial Boyd MD [address] [place] [address] [place] [id number] Internal Medicine-Cardiovascular Disease 07/28/20 documented as of this encounter
[2025-07-18 16:50] VITALS: BP 101/58; PULSE 108; RESP 16; TEMP 37.2; O2SAT 100; BMI 25.3
--- OUTSIDE RECORDS SUMMARY | 2025-07-18 17:00 | XMS_ITS | Encounter Summary ---
Author Organization [place] [address] Care Team Providers Care Body Shop Floorperson Name Role Phone Marcial Boyd MD Unavailable [phone] Enrique Kumar MD Primary Care Provider [phone] Encounter Details Date Type Department Care Team (Late st Contact Info) Description 07/15/2025 Results Follow-Up [facility] [address] 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
--- OUTSIDE RECORDS SUMMARY | 2025-07-18 17:00 | XMS_ITS | Encounter Summary ---
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
--- OUTSIDE RECORDS SUMMARY | 2025-07-18 17:00 | XMS_ITS | Clinical Summary ---
Author Organization [facility] Address [address] [place] [address] Phone [email or web address] Care Team Providers Care Floor Framer Name Role Phone Audi Whelan Primary Care Provider [phone] Allergies Active Allergy Reactions Criticality Noted Date [...] on file Legal Sex Female 5:30 AM BRUSH CLEANER Gender Identity Not on file Sexual Orientation [...] to complete this topic Insurance Care Teams Floor Framer Relationship Specialty Start Date End Date Audi Whelan [place] [id number] PCP - General Family Medicine 02/17/23
--- OUTSIDE RECORDS SUMMARY | 2025-07-18 17:00 | XMS_ITS | Clinical Summary ---
Author Organization [facility] [facility] Address [address] [place], [place] [address] Phone Care Team Providers Care Sleeve Sewer Name Role Phone Marcial Boyd MD Unavailable [phone] Enrique Kumar MD Primary Care Provider [phone] Allergies Active Allergy Reactions Criticality Noted Date [...] MD) fluticasone propionate (FLONASE) 50 mcg/actuation Nasl [place], SuspensionIndi cations:COVID- 19 virus infection,Hist ory of asthma 1 [place] by Nasal route daily. 1 Each 10/01/19 [...] EDT): -MRI cervical spine order faxed to [facility], patient provided number to schedule -Provided number to chiropractor for neck pain and stiffness Deviated septum 01/10/2018 Vitamin D deficiency 12/26/2017 Assessment & Plan (12/17/2024 9:41 AM EDT): Orders: VITAMIN D 25 HYDROXY; Future Moderate persistent asthma without complication 12/25/2017 Family history of heart disease 12/25/2017 Anxiety and depression 12/25/2017 Encounters Date Type Department Care Team Description 07/15/2025 Results Follow-Up [facility] [place] [address] [place] [address] Lana Ford, GOVERNMENT AFFAIRS FELLOW VITAMIN D 25 HYDROXY, CBC WITH DIFF, IRON+TIBC 07/11/2025 10:00 AM EST Office Visit [facility] [place] [facility] [address] [place] [address] Lana Ford, ELIAZAR [...] Date Job End Date works at [employer]. Not on file Not on file Not [...] 07/11/2025 4:01 PM EST [facility] Transferrin 267 200 - 360 mg/dL 07/11/2025 4:01 PM EST [facility] Transferrin Saturation 28 20 - 50 % 07/11/2025 4:01 PM EST [facility] TIBC 374 250 - 400 mcg/dL 07/11/2025 4:01 PM EST [facility] Blood VENOUS BLOOD / Unknown Venipuncture / Unknown 07/11/2025 11:32 AM EST 07/11/2025 11:32 AM EST Lana Ford APRN CHEMISTRY ORDERABLES Elise l Result Performing Organization Address City/[facility] Co de Phone Number [facility] [address] [facility] , [place] [address] * VITAMIN D 25 HYDROXY (07/11/2025 11:32 AM EST) Vit D 25 OH 32.1 30.0 - 150.0 ng/mL 07/11/2025 4:12 PM EST [facility] Comment: Preferred: >= 30 ng/mL Insufficient: 21-29 [...] Result [facility] [address] [facility] [facility] , [place] [address] * CBC WITH DIFF (07/11/2025 11:32 AM [...] 2:48 PM EST [facility] Childress Percent 8.2 % 07/11/2025 2:48 PM EST [facility] Eos Percent 1.9 % 07/11/2025 2:48 PM EST [facility] Baso Percent 0.6 % 07/11/2025 2:48 PM EST [facility] Neut # 4.6 1.6 - 6.1 x10(3)/[facility] 07/11/2025 2:48 PM EST [facility] Comment:Neutrophils equals s egs plus bands IMMGRAN# 0.0 0.0 - 0.1 x10(3)/mcL 07/11/2025 2:48 PM EST [facility] Comment:Automated count of m etamyelocytes, myelocytes and promyelocytes. An absolute IG <0.1 is reported as 0.0. Lymph # 1.6 1.2 - 3.9 x10(3)/[facility] 07/11/2025 2:48 PM EST [facility] Childress # 0.6 0.3 - 0.9 x10(3)/[facility] 07/11/2025 2:48 PM EST [facility] Eos# 0.1 0.0 - 0.5 x10(3)/[facility] 07/11/2025 2:48 PM EST [facility] Baso # 0.0 0.0 - 0.1 x10(3)/[facility] 07/11/2025 2:48 PM EST [facility] Blood VENOUS BLOOD / Unknown Venipuncture / Unknown 07/11/2025 11:32 AM EST 07/11/2025 11:32 AM EST us Lana Ford APRN HEMATOLOGY ORDERABLES Fin al Result Performing Organization Address City/State/[facility] Co de Phone Number [facility] [address] [facility] , [address] [place] [id number] from Last 3 Months Insurance Care Teams Sleeve Sewer Relationship Specialty Start Date End Date Enrique Kumar MD [address] [place] [address] [place] [address] PCP - General Internal Medicine 10/19/22 Marcial Boyd MD [address] [place] [address] [place] [address] Internal Medicine-Cardiovascular Disease 07/28/20
--- NOTE | 2025-07-18 17:04 | ED_ITS ---
<Statement entered by Renetta Walker DO - 07/19/25 00:07> I was consulted by the ROXANA, and we discussed the complexity of problems being addressed. I approve the treatment and management plan for this patient's care in the emergency department, thus performing a substantial portion of the medical decision making. Renetta Walker DO Discharge Plan Disposition Patient Disposition: Home, Self-Care Condition: Good Prescriptions Prescriptions: No Action albuterol sulfate 90 mcg/actuation HFA aerosol inhaler 1 puff INHALATION Q6H PRN (Reason: Shortness Of Breath) ondansetron 4 mg tablet,disintegrating 4 mg PO Q6H PRN (Reason: nausea and vomiting) Qty: 7 0RF promethazine 12.5 mg tablet 12.5 mg PO TID PRN (Reason: sedation) Qty: 7 0RF ondansetron 4 mg tablet,disintegrating 4 mg PO Q6H PRN (Reason: nausea and vomiting) Qty: 7 0RF promethazine 12.5 mg tablet 12.5 mg PO TID PRN (Reason: nausea and vomiting) Qty: 7 0RF metoclopramide HCl [Reglan] 10 mg tablet 10 mg PO Q6H PRN (Reason: nausea and vomiting) Qty: 20 0RF tizanidine 2 mg tablet 2 mg PO DAILY Patient Comments: TAKE 1 TABLET BY MOUTH 3 TIMES DAILY NEEDED albuterol sulfate [Ventolin HFA] 90 mcg/actuation HFA aerosol inhaler 2 puff inhalation Q6H PRN (Reason: shortness of breath or wheezing) Qty: 6.7 0RF azithromycin [Zithromax] 250 mg tablet 250 mg PO UD DOSE PK Qty: 6 0RF Rx Instructions: Take two (2) tablets today, then one (1) tablet days #2 thru #5 methylprednisolone 4 mg Tablets,Dose Pack 4 mg PO DIRECTED 6 Days Qty: 21 0RF Rx Instructions: Take 1 pack as directed for 6 days meclizine 25 mg tablet 25 mg PO TID PRN (Reason: dizziness) Qty: 30 0RF ondansetron HCl 4 mg tablet 4 mg PO Q8H PRN (Reason: nausea and vomiting) 5 Days Qty: 30 0RF Referrals Follow up/Referrals: Enrique Brower MD [Primary Care Provider, Medical] - See instructions Activity Restrictions/Add. Instructions Additional Instructions/Restrictions: You were evaluated on an emergency basis. It is very important that you follow- up with your primary care provider and any specialist who we discussed within the next 2 days in order to better assess your health more comprehensively. For example, incidental findings on imaging or laboratory results that were perf ormed today may be discovered, which do not require immediate medical care, but may impact your health in the future. If your symptoms worsen or persist, please return to the emergency department immediately for reassessment. Take all medications as prescribed. In queue for allowing me to participate in your health care, and I hope you feel better soon. Clinical Impressions Clinical Impression: Viral illness Instructions Patient Instructions: DI for Viral Syndrome Print Language Print Language: Panamanian Discharge ED Provider: Renetta Walker Adult HPI General Chief complaint: Upper Respiratory Infection Stated complaint: poss virus not getting any better Time Seen by Provider: 07/18/25 17:04 History of Present Illness HPI narrative: 45-year-old female presents emergency department complaints of upper respiratory symptoms. She states that she was seen by her primary care provider earlier today where she had chest x-ray as well as nasal swabs done. She reports that her strep swab as well as COVID and flu were negative. She states that a respiratory panel was sent as well as chest x-ray and lab studies. Patient states she has not yet gotten the results of her respiratory panel, chest x-ray or lab work. Patient reports taking Tylenol at approximately 3 PM. Related Data Home Medications ?Medication ?Instructions ?Recorded ?Confirmed albuterol sulfate 90 mcg/actuation 1 puff inhalation Q 6H PRN 05/02/18 09/11/19 aerosol inhaler Shortness Of Breath tizanidine 2 mg tablet 2 mg PO DAILY 07/21/2407/21 Previous Rx's ?Medication ?Instructions ?Recorded albuterol sulfate 90 mcg/actuation 2 puff inhalation Q 6H PRN 07/21/24 aerosol inhaler (Ventolin HFA) shortness of breath or wheezing #6.7 grams azithromycin 250 mg tablet 250 mg PO UD DOSE PK #6 tab s 07/21/24 (Zithromax) methylprednisolone 4 mg tablets in 4 mg PO DIRECTED 6 days #21 tabs 07/21/24 a dose pack ondansetron 4 mg disintegrating 4 mg PO Q6H PRN nausea and 08/12/24 tablet vomiting #7 tabs ondansetron 4 mg disintegrating 4 mg PO Q6H PRN nausea and 08/12/24 tablet vomiting #7 tabs promethazine 12.5 mg tablet 12.5 mg PO TID PRN nausea and 08/12/24 vomiting #7 tabs promethazine 12.5 mg tablet 12.5 mg PO TID PRN sedatio n #7 tabs 08/12/24 metoclopramide HCl 10 mg tablet 10 mg PO Q6H PRN nause a and 11/28/24 (Reglan) vomiting #20 tabs meclizine 25 mg tablet 25 mg PO TID PRN dizziness # 30 tabs 03/26/25 ondansetron HCl 4 mg tablet 4 mg PO Q8H PRN nausea and 03/26/25 vomiting 5 days #30 tabs Allergies Allergy/AdvReac Type Severity Reaction Status Date / Time nalbuphine (NALBUPHINE) Allergy Mild Verified 12/10/22 16:43 Penicillins (PENICILLINS) Allergy Mild Verified 12/10/22 16:43 tramadol (TRAMADOL) Allergy Mild Verified 12/10/22 16:43 [facility] Disclaimer: The information contained in this section may have been updated after the patient was seen, as this information can be updated by other users. Social History Smoking Status: Never smoker alcohol intake: never current occupational status: employed Travel in the last 8 weeks?: Inside the [place] Have you lived/traveled outside US in past 30 days?: No Contact w/someone who lives/traveled outside US past 30 days?: No Exposure to someone with infectious disease in past 14 days?: No Do you have a fever (greater than 100.4 F or 38 C)?: No Have you tested positive for COVID-19?: No Exposed to someone with COVID-19 in past 14 days?: No Do you have a sore throat?: No Do you have a cough?: No Do you have any weakness?: No Do you have any diarrhea?: No Are you experiencing any unusual bleeding?: No Do you have any muscle aches/pain?: No Do you have any abdominal pain?: No Are you experiencing loss of taste or smell?: No Other Medical History Have you received the Flu Vaccine for this season: No Have you received the Pneumonia Vaccine: No ROS Obtained: Yes other Constitutional Constitutional: Reports fatigue, Reports headache(s) and Reports malaise ENT Ears, Nose, Mouth, and Throat: Reports headache(s) and Reports sinus pressure Neurologic Neurologic: Reports headache(s) Endocrine Endocrine: Reports fatigue Physical Exam Narrative Physical exam: General: Awake, aware, in no acute distress HEENT: Normocephalic, no evidence of trauma CV: RRR, no murmurs, rubs, or gallops Pulm: CTA bilaterally with no rhonchi, rales, wheezes ABD: Nontender, no swelling, guarding, or rebound tenderness Psych, appropriate mood and affect General General appearance: alert Respiratory Respiratory exam: Present normal lung sounds bilaterally Cardiovascular Cardiovascular exam: Present regular rate Neurological Exam Neurological exam: Present alert Medical Decision Making Medical Records Screening: Per USPSTF and CDC recommendations, given the prevalence of disease in our region, it is our hospital?s policy to screen for HIV and viral Hepatitis for all patients aged 18 and over and those with ongoing risk factors. Warner Inquiry Pt receiving controlled substance: No Vital Signs: 07/18/25 16:50 Temperature 98.9 F Temperature Source Oral Pulse Rate [Right Radial] 108 H Respiratory Rate 16 Blood Pressure [Right Arm] 101/58 L Blood Pressure Mean [Right Arm] 72 Blood Pressure Source [Right Arm] Automatic Cuff 02 Sat by Pulse Oximetry 100 Oxygen Delivery Method Room Air Orders (Tests/Meds): ED MEDICATIONS Generic Name Dose Route Start Last Admin Trade Name Freq PRN Reason Stop Dose Admin Sodium Chloride 10 ml 07/18/25 17:11 Sodium Chloride 0.9% 10ml Flush Syringe IV 08/17/25 17:10 NEEDED PRN Maintain IV Site Discontinued Medications Generic Name Dose Route Start Last Admin Trade Name Freq PRN Reason Stop Dose Admin Diphenhydramine HCl 25 mg 07/18/25 17:11 07/18/25 17:44 Diphenhydramine 50mg/Ml Vial IV 07/18/25 17:12 25 mg ONCE ONE Administration Sodium Chloride 1,000 mls @ 999 mls/hr 07/18/25 17:11 07/18/25 17:44 Sod Chlor 0.9% 1000ml Bag IV 07/18/25 18:11 999 mls/hr .Q1H1M ONE Administration Ketorolac Tromethamine 30 mg 07/18/25 17:11 07/18/25 17:44 Ketorolac 30mg/Ml Vial IV 07/18/25 17:12 30 mg ONCE ONE Administration Metoclopramide HCl 10 mg 07/18/25 17:11 07/18/25 17:44 Metoclopramide Hcl 10mg/2ml Vial IVP 07/18/25 17:12 10 mg ONCE ONE Administration Medical Decision Narrative: Initial impression of presenting illness: 45-year-old female presents emergency department with complaints of headache, sinus pressure, and jaw pain for the past several days. She was seen by her primary care provider earlier today w here rapid strep, COVID and flu were negative. She states a respiratory panel was sent as well as laboratory studies a chest x-ray which she does not have the test results back yet. She states she took Tylenol at approximately 3 PM. Differential diagnosis includes but is not limited to: Viral illness, pneumonia, otitis media, headache Patient arrives hemodynamically stable, afebrile, without respiratory distress with vital signs interpreted by myself. Initial physical exam unremarkable Initial diagnostic plan: Normal saline bolus for hydration as well as Toradol Reglan and Benadryl for headache control Interventions in the ED: Patient was given normal saline bolus for hydration as well as Reglan, Toradol, Benadryl for pain control Patient was made aware of the results and the findings, upon reevaluation patient has remained stable throughout stay, symptoms have improved. Upon relation patient states she is feeling better after receiving the medications. She is requesting to be discharged home at this time. Disposition: Encourage patient to continue with Tylenol and ibuprofen as needed for pain and fever control for what is likely a viral illness. Also recommended she increase her fluid intake and rest for the next several days. Instructed her to return to the emergency department for any new or worsening symptoms. Patient is agreeable to plan of care. Patient made aware of findings and had a detailed discussion with symptomatic care and return precautions, patient voiced understanding. Critical Care Critical Care Time Critical Care Time: No
[2025-07-18] MEDS: METOCLOPRAMIDE HCL 10MG/2ML VIAL 10 MG IVP (17:44)
[2025-07-18] MEDS: 0.9 % SODIUM CHLORIDE 1000ML 1,000 ML 999 ML IV (17:44)
[2025-07-18] MEDS: KETOROLAC 30MG/ML VIAL 30 MG IV (17:44)
[2025-07-18 18:37] VITALS: BP 112/62; PULSE 100; RESP 16; TEMP 37.2; O2SAT 100
== END 2025-07-18 18:38 | disposition home or self-care (01) ==
PROVIDERS: Emergency Provider Student in an Organized Health Care Education/Training Program; PCP Family Medicine
DX: R51.9 Headache, unspecified (principal); R68.84 Jaw pain; B34.9 Viral infection, unspecified
CPT/HCPCS: 96361; 96374; 96375; 99283; 99284; J1200; J1885; J2765; J7030

== ENCOUNTER 2025-07-25 16:10 | Emergency (ER) | payer OTHER, SELFPAY ==
[2025-07-25] VITALS (8 sets, daily range): BP systolic 122–153; BP diastolic 78–96; PULSE 84–125; RESP 16–18; TEMP 36.9–37.1; O2SAT 98–100; BMI 25.4
--- NOTE | 2025-07-25 16:28 | XR_ITS ---
PROCEDURE INFORMATION: Exam: XR Chest Exam date and time: 07/25/2025 5:20 PM Age: 45 years old Clinical indication: Shortness of breath; Rsv; Additional info: Dyspnea TECHNIQUE: Imaging protocol: Radiologic exam of the chest. Views: 2 views. COMPARISON: CR XR CHEST 2V 07/18/2025 3:01 PM FINDINGS: Lungs: No consolidation. Pleural spaces: No pleural effusion. No pneumothorax. Heart/Mediastinum: No cardiomegaly. Bones/joints: Unremarkable. IMPRESSION: No acute findings.
--- NOTE | 2025-07-25 16:49 | ECG_ITS ---
APPROVED REPORT Exam: Resting ECG HR:125 bpm ECG Measurements Heart Rate 125 AXES FL 116 P 75 QRSd 71 QRS 62 QT 336 T 54 QTc 410 Conclusion Normal sinus tachycardia Normal axis Normal intervals No STEMI Electronically signed by : Avtar Lin, 07/25/2025 23:34:38
[2025-07-25] MEDS: METHYLPREDNISOLONE SOD SUCC 125MG VIAL 125 MG IV (17:02)
[2025-07-25 17:06] LABS: Hematocrit 40.9 % (37.0-47.0); Hemoglobin 14.0 g/dL (12.2-16.2); Immature Granulocytes % 0.3 %; Mean Corpuscular HGB Conc 34.2 g/dL (31.8-35.4); Mean Corpuscular Hemoglobin 29.3 pg (27.0-31.2); Mean Corpuscular Volume 85.6 fl (81-99); Nucleated Red Blood Cells % 0 %; Platelet Count 359 K/mm3 (142-424); Red Blood Count 4.78 M/mm3 (4.20-5.40); Red Cell Distribution Width-SD 41.2 fL; White Blood Count 9.7 K/mm3 (4.8-10.8)
[2025-07-25 17:23] LABS: Anion Gap 12.9 mEq/L (5-15); Blood Urea Nitrogen 9 mg/dl (7-17); Calcium 10.4 mg/dl (8.4-10.2); Carbon Dioxide 23 mmol/L (22.0-30.0); Chloride 105 mmol/L (98-107); Creatinine Clearance Estimated 91 mL/min (50-200); Creatinine,Serum 0.90 mg/dl (0.52-1.04); Estimated Glomerular Filt Rate 68 ml/min (>60); GFR (African American) 83 ML/MIN (>60); Glucose 107 mg/dl (74-100); Lipase 81 U/L (23-300); Potassium 3.9 mmoL/L (3.5-5.1); Sodium 137 mmol/L (136-145)
[2025-07-25 17:28] LABS: D-Dimer 0.58 ug/mL (0.0-0.5); HCG Qualitative, Serum Negative (Negative)
[2025-07-25 17:33] LABS: Magnesium 2.1 mg/dl (1.6-2.3)
[2025-07-25 17:37] LABS: Troponin I < 0.01 ng/ml (0.00-0.034)
[2025-07-25 17:50] LABS: Coronavirus 19, PCR Not Detected (NotDetected); Influenza A, PCR Not Detected (NotDetected); Influenza B, PCR Not Detected (NotDetected)
[2025-07-25 18:20] LABS: Hepatitis C Ab Qual. W/ RFX NEGATIVE (Negative)
[2025-07-25] MEDS: IPRATROPIUM/ALBUTEROL 3 ML NEB 9 ML IH (18:27)
--- NOTE | 2025-07-25 18:47 | ED_ITS ---
Discharge Plan Disposition Patient Disposition: Home, Self-Care Condition: Good Prescriptions Prescriptions: New fluticasone furoate 100 mcg/actuation blister with device 1 inh inhalation DAILY 30 Days Qty: 30 0RF prednisone 20 mg tablet 20 mg PO BID 5 Days Qty: 10 0RF No Action albuterol sulfate 90 mcg/actuation HFA aerosol inhaler 1 puff INHALATION Q6H PRN (Reason: Shortness Of Breath) ondansetron 4 mg tablet,disintegrating 4 mg PO Q6H PRN (Reason: nausea and vomiting) Qty: 7 0RF promethazine 12.5 mg tablet 12.5 mg PO TID PRN (Reason: sedation) Qty: 7 0RF ondansetron 4 mg tablet,disintegrating 4 mg PO Q6H PRN (Reason: nausea and vomiting) Qty: 7 0RF promethazine 12.5 mg tablet 12.5 mg PO TID PRN (Reason: nausea and vomiting) Qty: 7 0RF metoclopramide HCl [Reglan] 10 mg tablet 10 mg PO Q6H PRN (Reason: nausea and vomiting) Qty: 20 0RF tizanidine 2 mg tablet 2 mg PO DAILY Patient Comments: TAKE 1 TABLET BY MOUTH 3 TIMES DAILY NEEDED albuterol sulfate [Ventolin HFA] 90 mcg/actuation HFA aerosol inhaler 2 puff inhalation Q6H PRN (Reason: shortness of breath or wheezing) Qty: 6.7 0RF azithromycin [Zithromax] 250 mg tablet 250 mg PO UD DOSE PK Qty: 6 0RF Rx Instructions: Take two (2) tablets today, then one (1) tablet days #2 thru #5 methylprednisolone 4 mg Tablets,Dose Pack 4 mg PO DIRECTED 6 Days Qty: 21 0RF Rx Instructions: Take 1 pack as directed for 6 days meclizine 25 mg tablet 25 mg PO TID PRN (Reason: dizziness) Qty: 30 0RF ondansetron HCl 4 mg tablet 4 mg PO Q8H PRN (Reason: nausea and vomiting) 5 Days Qty: 30 0RF Referrals Follow up/Referrals: Enrique Brower MD [Primary Care Provider, Medical] - See instructions Activity Restrictions/Add. Instructions Additional Instructions/Restrictions: I want you to start taking fluticasone which is a steroid inhaler 1 puff daily. You may take your albuterol inhaler 2 puffs every 4 hours. I also want you to take prednisone 20 mg twice daily for the next 5 days. If you have new or worsening shortness of breath please return to the emergency department for further evaluation Clinical Impressions Clinical Impression: Asthma exacerbation Qualifiers: Asthma severity: mild Asthma persistence: persistent Qualified Code(s): J45.31 - Mild persistent asthma with (acute) exacerbation Print Language Print Language: Niuean Discharge ED Provider: Avtar Lin General Chief Complaint: Shortness of Breath/Dyspnea Stated Complaint: MINERVA has RSV & Asthma, sent per [facility] Time Seen by Provider: 07/25/25 16:14 Mode of Arrival: Ambulatory Source of Information: Patient Description of Symptoms (Recalled from ER Triage Doc. by RN): pt presents to the ED with shortness of breath. pt states that she was diagnosed with RSV 2 days ago and today she dveloped shortness of breath. pt reports having 2 episodes of hyperventilation where she feels its hard to catch her breath. Hx of asthma. pt reports intermittent chest pain from the shortness of breath and coughing. pt states that she did a breathing treatment prior to arrival. History of Present Illness HPI narrative: This is a 45-year-old female patient, past medical history of asthma, who is presenting to the emergency department today for evaluation of shortness of breath. Patient tells me that she has been sick for the last 2 weeks. This has been marked by upper respiratory symptoms as well as what she describes to be consistent with prior asthma exacerbations. She was seen by her primary care physician who put her on a course of prednisone 20 mg daily. She was doing this in addition to albuterol at home and symptoms did improve but this evening they acutely worsen. This was over a week ago she describes feeling sudden onset wheezing and shortness of breath and this caused her to begin hyperventilating. After she began hyperventilating she began to feel lightheaded as well as worsening air hunger. She administered an albuterol nebulizer to herself and came here for further evaluation. She states on arrival that she feels her symptoms have subjectively improved. Related Data Home Medications ?Medication ?Instructions ?Recorded ?Confirmed albuterol sulfate 90 mcg/actuation 1 puff inhalation Q 6H PRN 05/02/18 09/11/19 aerosol inhaler Shortness Of Breath tizanidine 2 mg tablet 2 mg PO DAILY 07/21/2407/21 Previous Rx's ?Medication ?Instructions ?Recorded albuterol sulfate 90 mcg/actuation 2 puff inhalation Q 6H PRN 07/21/24 aerosol inhaler (Ventolin HFA) shortness of breath or wheezing #6.7 grams azithromycin 250 mg tablet 250 mg PO UD DOSE PK #6 tab s 07/21/24 (Zithromax) methylprednisolone 4 mg tablets in 4 mg PO DIRECTED 6 days #21 tabs 07/21/24 a dose pack ondansetron 4 mg disintegrating 4 mg PO Q6H PRN nausea and 08/12/24 tablet vomiting #7 tabs ondansetron 4 mg disintegrating 4 mg PO Q6H PRN nausea and 08/12/24 tablet vomiting #7 tabs promethazine 12.5 mg tablet 12.5 mg PO TID PRN nausea and 08/12/24 vomiting #7 tabs promethazine 12.5 mg tablet 12.5 mg PO TID PRN sedatio n #7 tabs 08/12/24 metoclopramide HCl 10 mg tablet 10 mg PO Q6H PRN nause a and 11/28/24 (Reglan) vomiting #20 tabs meclizine 25 mg tablet 25 mg PO TID PRN dizziness # 30 tabs 03/26/25 ondansetron HCl 4 mg tablet 4 mg PO Q8H PRN nausea and 03/26/25 vomiting 5 days #30 tabs fluticasone furoate 100 1 inh inhalation DAILY 30 da ys #30 07/25/25 mcg/actuation blister powder for ea inhalation prednisone 20 mg tablet 20 mg PO BID 5 days #10 tabs 07/25/25 Allergies Allergy/AdvReac Type Severity Reaction Status Date / Time nalbuphine (NALBUPHINE) Allergy Mild Verified 12/10/22 16:43 Penicillins (PENICILLINS) Allergy Mild Verified 12/10/22 16:43 tramadol (TRAMADOL) Allergy Mild Verified 12/10/22 16:43 [facility] Disclaimer: The information contained in this section may have been updated after the patient was seen, as this information can be updated by other users. Social History Smoking Status: Former smoker alcohol intake: never current occupational status: employed Travel in the last 8 weeks?: Inside the [place] Have you lived/traveled outside US in past 30 days?: No Contact w/someone who lives/traveled outside US past 30 days?: No Exposure to someone with infectious disease in past 14 days?: No Do you have a fever (greater than 100.4 F or 38 C)?: No Have you tested positive for COVID-19?: No Exposed to someone with COVID-19 in past 14 days?: No Do you have a sore throat?: No Do you have a cough?: No Do you have any weakness?: No Do you have any diarrhea?: No Are you experiencing any unusual bleeding?: No Do you have any muscle aches/pain?: No Do you have any abdominal pain?: No Are you experiencing loss of taste or smell?: No Other Medical History Have you received the Flu Vaccine for this season: No Have you received the Pneumonia Vaccine: No ROS Obtained: Yes Systems reviewed as appropriate & no additional complaints except as documented Physical Exam General General appearance: other (See MDM) Respiratory Respiratory exam: Present other (See MDM) Cardiovascular Cardiovascular exam: Present other (See MDM) Neurological Exam Neurological exam: Present other (See MDM) HEART Score HEART Score HEART Score assessment performed?: Yes History (anamnesis): Slightly suspicious ECG: Normal Age: <45 years Risk factors: No known risk factors Troponin: </= normal limit HEART Score: 0 Critical Care Critical Care Time Critical Care Time: No Medical Decision Making Medical Records Medical records reviewed: Yes I reviewed the patient's medical records. Warner Inquiry Pt receiving controlled substance: No Warner was queried for this patient: No Vital Signs Vital Signs: 07/25/25 16:14 07/25/25 16:14 07/25/25 16:41 Temperature 98.5 F 98.5 F Temperature Source Oral Oral Pulse Rate 125 H Pulse Rate [Right] 125 H Respiratory Rate 18 18 Blood Pressure 153/96 H Blood Pressure [Right Arm] 153/96 H Blood Pressure Mean Blood Pressure Mean [Right Arm] 115 Blood Pressure Source Automatic Cuff Blood Pressure Source [Right Arm] Automatic Cuff Blood Pressure Position Supine Blood Pressure Position [Right Arm] Supine 02 Sat by Pulse Oximetry 100 100 100 Oxygen Delivery Method Room Air Room Air Room Air 07/25/25 16:47 07/25/25 17:00 07/25/25 17:34 Temperature Temperature Source Pulse Rate 110 H 119 H 112 H Pulse Rate [Right] Respiratory Rate 18 18 Blood Pressure 150/91 H 122/81 Blood Pressure [Right Arm] Blood Pressure Mean 119 94 Blood Pressure Mean [Right Arm] Blood Pressure Source Blood Pressure Source [Right Arm] Blood Pressure Position Blood Pressure Position [Right Arm] 02 Sat by Pulse Oximetry 99 100 100 Oxygen Delivery Method 07/25/25 18:00 07/25/25 18:30 07/25/25 19:40 Temperature 98.8 F Temperature Source Oral Pulse Rate 105 H 116 H 84 Pulse Rate [Right] Respiratory Rate 16 18 Blood Pressure 140/80 128/78 Blood Pressure [Right Arm] Blood Pressure Mean 94 Blood Pressure Mean [Right Arm] Blood Pressure Source Blood Pressure Source [Right Arm] Blood Pressure Position Blood Pressure Position [Right Arm] 02 Sat by Pulse Oximetry 100 100 Oxygen Delivery Method Room Air Room Air Lab Data Labs: Lab Results 07/25/25 16:58: WBC 9.7, RBC 4.78, Hgb 14.0, Hct 40.9, MCV 85.6, MCH 29.3, MCHC 34.2, RDW 13.2, Plt Count 359, MPV 9.2, Neut % (Auto) 70.5, Lymph % (Auto) 20.6, Sandoval % (Auto) 7.2, Eos % (Auto) 1.0, Baso % (Auto) 0.4, Neut # (Auto) 6.8, Lymph # (Auto) 2.0, Sandoval # (Auto) 0.7, Eos # (Auto) 0.1, Baso # (Auto) 0.0, D-Dimer 0.58 H, Sodium 137, Potassium 3.9, Chloride 105, Carbon Dioxide 23, Anion Gap 12.9, BUN 9, Creatinine 0.90, Estimated Creat Clear 91, Estimated GFR 68, Est GFR ( Amer) 83, Glucose 107 H, Calcium 10.4 H, Magnesium 2.1, Troponin I < 0.01, Lipase 81, Serum HCG, Qual Negative, HCV Ab RADHA w/Rflx PCR Qn Negative, HIV Ag/Ab Combo Qual Negative 07/25/25 17:44: SARS-CoV-2 (PCR) Not detected, Influenza Type A (PCR) Not detected, Influenza Type B (PCR) Not detected, RSV (PCR) Not detected, Rhinovirus (PCR) Not detected 07/25/25 16:58 07/25/25 16:58 Response Orders (Tests/Meds): ED MEDICATIONS Discontinued Medications Generic Name Dose Route Start Last Admin Trade Name Freq PRN Reason Stop Dose Admin Albuterol/Ipratropium 9 ml 07/25/25 18:16 07/25/25 18:27 Ipratropium/Albuterol 3 Ml Neb IH 07/25/25 18:17 9 ml ONCE ONE Administration Methylprednisolone Sodium Succinate 125 mg 07/25/25 16:28 07/25/25 17:02 Methylprednisolone Sod Succ 125mg Vial IV 07/25/25 16:29 125 mg ONCE ONE Administration ORDERS Category Date Time Status CXR 2 view (NOT portable) [XR chest 2V] Stat Exams 07/25/25 16:28 Completed BMP [Basic Metabolic Panel] Stat Lab 07/25/25 16:58 Completed CBC w/Auto Diff [Complete Blood Count Auto Diff] Stat Lab 07/25/25 16:58 Completed D-Dimer Stat Lab 07/25/25 16:58 Completed HCG Qualitative, Serum Stat Lab 07/25/25 16:58 Completed HIV Combo Stat Lab 07/25/25 16:58 Completed Hepatitis C Ab Qual. W/ RFX Stat Lab 07/25/25 16:58 Completed Lipase Stat Lab 07/25/25 16:58 Completed Magnesium Stat Lab 07/25/25 16:58 Completed Mini Respiratory Panel Stat Lab 07/25/25 17:44 Completed Troponin I Q3H Lab 07/25/25 19:30 Ordered Troponin I Q3H Lab 07/25/25 22:30 Ordered Troponin I Stat Lab 07/25/25 16:58 Completed ECG Data Tracing #1: Attestation: I reviewed this ECG and interpreted as documented below: ECG Narrative: EKG personally turbid by me demonstrates sinus tachycardia at a rate of 125 bpm, normal axis, no AK prolongation, narrow QRS, no QTc prolongation. No ST ovation or depression. No overt signs of ischemia or rhythm MDM Narrative Medical Decision Narrative: In summary, this a 45-year-old female patient who is presenting to the emergency department today for evaluation of shortness of breath and what she discovered to be an asthma exacerbation in the setting of a viral illness with persistent symptoms over the last 2 weeks. Her comorbidities do include a past medical history of asthma. On initial evaluation of the patient they were resting comfortably in no acute distress and nontoxic in appearance. They are hemodynamically stable, saturating well room air, and are neurologically intact. On physical examination she has no elevated respiratory rate, no wheezes in her bilateral lung chapin, heart sounds are normal. She has no lower extremity erythema or edema Differential diagnosis includes asthma exacerbation, pulmonary embolism, ACS/SD, electrolyte arrangement, acute injury, among others Workup is initiated with EKG, hematologic labs, and a chest x-ray. Labs were personally interpreted by me and demonstrate no actionable normality. There is no leukocytosis, no anemia, no electrolyte derangement, no evidence of acute kidney injury. Troponin is less than 0.01. hCG is negative. D-dimer is 0.58 which is negative by years criteria and excludes pulmonary embolism After while in the emergency department I did reevaluate the patient and she had very faint expiratory wheezing in her bilateral lung chapin. We ordered 3 DuoNebs. On repeat assessment she is tachycardic as expected, her wheezing has significantly improved and resolved. Her viral swabs did come back negative for COVID, flu, and RSV. At this time I feel that she is stable for discharge home. We will start her on a fluticasone inhaler as well as a 5-day course of prednisone 40 mg daily. I have also informed her that she can take her albuterol inhaler up to 2 puffs every 4 hours as needed. We have discussed follow-up with her primary care physician. At this time all questions have been answered and all parties are agreeable with the decision to discharge home
== END 2025-07-25 19:58 | disposition home or self-care (01) ==
PROVIDERS: Emergency Provider Student in an Organized Health Care Education/Training Program; PCP Family Medicine
DX: J45.31 Mild persistent asthma with (acute) exacerbation (principal); F17.210 Nicotine dependence, cigarettes, uncomplicated; R00.0 Tachycardia, unspecified
CPT/HCPCS: 71046; 80048; 83690; 83735; 84484; 84703; 85025; 85378; 86803; 87389; 87631; 93005; 96374; 99285; J2919

== ENCOUNTER 2025-08-16 20:14 | Emergency (ER) | payer OTHER, SELFPAY ==
--- OUTSIDE RECORDS SUMMARY | 2024-06-07 06:15 | XMS_ITS ---
Author Organization [facility] Address [address] [facility] [address] [place] [id number] Care Team Providers Care Magnetic Tape Composer Operator Name Role Phone Ly Ayala Primary Care Provider Enrique Brower Unavailable [phone] Allergies Allergen (clinical drug ingredient) Drug/Non Drug Allergy documented on EMR Reaction Allergy Type Onset Date Status acetaminophen / hydrocodone HYDROcodone-Acetam inophen stomach upset Drug Allergy Active Penicillin Unknown Drug Allergy Active Results Component Value Reference Range Notes P-Basic Metabolic Panel (BMP ) Reviewed date:06/12/2024 04:49:04 PM Interpretation:Normal Performing Lab: Notes/Report: CLIA: [id number] Grey Faith MD, Psychology Professor [address] [place] [address] , [place] [address] Test performed by [email or web address] Sodium 139 135-145 mmol/L Potassium 5.1 3.5-5.3 mmol/L Chloride 102 97-108 mmol/L CO2 24 22-32 mmol/L Glucose 94 65-99 mg/dL BUN 11 6-20 mg/dL Creatinine 0.89 0.50-1.00 mg/dL Calcium 10.3 8.6-10.4 mg/dL eGFR by Creatinine 83 >59 mL/min/1.73m2 P-Lipid Panel Reviewed date:06/12/2024 04:49:04 PM Interpretation:Normal Performing Lab: Notes/Report: Test performed by [email or web address] [address] [place] [address] [address], [address] [place] [id number] Grey Faith MD, Psychology Professor CLIA: [id number] Cholesterol 179 <200 mg/dL Triglycerides 55 <150 [...] Interpretation:Normal Performing Lab: Notes/Report: Test performed by [facility], [address] , [address] , [place] [address] Grey Faith MD, Psychology Professor CLIA: [id number] Vitamin D 25-Hydroxy 35.4 30.0-100.0 ng/mL Interpretation [...] Status Risk Notes Problem Disorder of neck (797035589) Disorder of neck (M53.82) Active confirmed Problem Vitamin D deficiency (97450718) Vitamin D deficiency (E55.9) Active confirmed Vital Signs Weight 153 lbs 06/07/2024 Blood pressure systolic 124 mm Hg 06/07/20 24 Blood pressure diastolic 80 mm Hg 024 Heart Rate 82 /min 06/07/2024 Height 66 in 06/07/2024 BMI 24.69 kg/m2 06/07/2024 Encounters Encounter Location Date Provider Diagnosis [facility] [address] [facility] [address] [place] [phone] 06/07/2024 Enrique [place] Disorder of neck M53 .82 ; Muscle [...] to repo rt progress, Reason: Provider Name:Enrique casillas, 08/18/2025 10:45:00 AM, [address], [address], [place], [place], [phone], Provider Name:Enrique T Salas casillas, 09/03/2025 11:45:00 AM, [address], [address], [place], [place], [phone], Progress Notes * KASSIDYKishoreB: 2 (45 yo F)Acc No.[id number]:06/07/2024 Progress Notes Patient: Preeti FOSTER Provider: Loulou Brower M.D. :1980 A ge:43 Y S ex:Female Date:06/07/2024 [id number] Pcp:Ly Ayala Subjective: * Chief Complaints: * [...] care, previously seen by Dr. Kumar at [facility] in [place], [place]. * ROS: D ERMATOLOGY: no R [...] * Images: Billing Information: * Visit Code: 31830 Office Visit, New Pt., Level 4. * Procedure Codes: * Electronic signature of Paige Brower MD on 08/16/2025 at 08:29 PM EST Sign off status: Pending * Provider: Loulou Brower M.D. Date: Generated for Andrew sheets/Faxing/eTransmitting on: 1 10/17/2024 08:29 PM EST History and Physical Notes * [...] care, previously seen by Dr. Kumar at [facility] in [place], [place] Examination Category Sub-Category Detail Notes Category [...]
--- OUTSIDE RECORDS SUMMARY | 2025-07-11 10:00 | XMS_ITS | Encounter Summary ---
Author Organization [place] [address] Care Team Providers Care Informix Developer Name Role Phone Marcial Boyd MD Unavailable [phone] Enrique Kumar MD Primary Care Provider [phone] Reason for Visit * Reason Comments Sinusitis Left jaw pain, sinus pressure, sore throat, cough Encounter Details Date Type Department Care Team ([facility] Contact Info) Description 07/11/2025 10:00 AM EST Office Visit SEP Shasha [address] 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 Mouth/Throat: Lips: Olivarez. Mouth: Mucous membranes are moist. Pharynx: Posterior [...] The provider educated the patient (or legal liability claims representative) on the use of the ambient listening artificial intelligence tool, [employer]. They were informed that this AI tool [...] of such information, the patient (or legal liability claims representative), and each individual in attendance with [...] 07/11/2025 11:32 AM EST us Lana Ford TECHNOLOGY ANALYST CHEMISTRY ORDERABLES Elise ngo Result [facility] [address] [facility] , [place] [address] * CBC WITH DIFF (07/11/2025 [...] 07/11/2025 2:48 PM EST [facility] Neut Percent 66.6 % 07/11/2025 2:48 PM EST [facility] Comment:Neutrophils equals s egs plus bands Imm Gran% 0.1 % 07/11/2025 2:48 PM EST [facility] Comment:Automated count of m etamyelocytes, myelocytes and promyelocytes. Lymph Percent 22.6 % 07/11/2025 2:48 PM EST [facility] [place] Percent 8.2 % 07/11/2025 2:48 PM EST [facility] Eos Percent 1.9 % 07/11/2025 2:48 PM EST [facility] Baso Percent 0.6 % 07/11/2025 2:48 PM EST [facility] Neut # 4.6 1.6 - 6.1 x10(3)/mcL 07/11/2025 2:48 PM EST [facility] Comment:Neutrophils equals s egs plus bands IMMGRAN# 0.0 0.0 - 0.1 x10(3)/mcL 07/11/2025 2:48 PM EST [facility] Comment:Automated count of m etamyelocytes, myelocytes and promyelocytes. An absolute IG <0.1 is reported as 0.0. Lymph # 1.6 1.2 - 3.9 x10(3)/mcL 07/11/2025 2:48 PM EST [facility] Ashe # 0.6 0.3 - 0.9 x10(3)/mcL 07/11/2025 2:48 PM EST [facility] Eos# 0.1 0.0 - 0.5 x10(3)/mcL 07/11/2025 2:48 PM EST [facility] Baso # 0.0 0.0 - 0.1 x10(3)/[facility] 07/11/2025 2:48 PM EST [facility] Blood VENOUS BLOOD / Unknown Venipuncture / Unknown 07/11/2025 11:32 AM EST 07/11/2025 11:32 AM EST Lana Ford TECHNOLOGY ANALYST HEMATOLOGY ORDERABLES Fin al Result Performing Organization Address [facility] de Phone Number [facility] [address] , [place] [address] * VITAMIN D 25 HYDROXY (07/11/2025 11:32 AM EST) Vit D 25 OH 32.1 30.0 - 150.0 ng/mL 07/11/2025 4:12 PM EST [employer] Comment: Preferred: >= 30 ng/mL Insufficient: 21-29 [...] ORDERABLES Elise l Result Performing Organization Address [facility] de Phone Number [facility] [address] , [place] [address] documented in this encounter Visit [...] 07/11/2025 fluticasone propionate (FLONASE) 50 mcg/actuation Nasl Galva, SuspensionIndications :COVID-19 virus infection,History of asthma 1 Galva by Nasal route daily. Cancelled by 10/01/2024 07/11/2025 documented as of this encounter Historical Medications * This list may reflect changes made after this encounter. ferrous sulfate 325 mg (65 mg iron) Oral Tablet Take 325 mg by mouth daily. added in this encounter Care Teams Informix Developer Relationship Specialty Start Date End Date Enrique Kumar MD [address] [place] [id number] PCP - General Internal Medicine 10/19/22 Marcial Boyd MD [address] [place] [address] [place] [id number] Internal Medicine-Cardiovascular Disease 07/28/20 documented as of this encounter
--- OUTSIDE RECORDS SUMMARY | 2025-07-15 05:15 | XMS_ITS ---
Author [facility] Address [address] [place] [id number] Care Team Providers Care Experimental Rocket Sled Mechanic Name Role Phone Ly Ayala Primary Care Provider Fatemeh Gomez [phone] Allergies Allergen (clinical drug ingredient) Drug/Non Drug [...] Orally Once a day Active Vital Signs Weight 154.5 lbs 07/15/2025 Blood pressure systolic 120 mm Hg 07/15/20 Blood pressure diastolic 74 mm Hg 025 Heart Rate 97 /min 07/15/2025 Height 66 in 07/15/2025 BMI 24.93 kg/m2 07/15/2025 Encounters Encounter Location Date Provider Diagnosis [facility] [address], [place] [id number] 07/15/2025 Fatemeh Gomez Acute upper respiratory infection [...] Appt Details Follow Up: prn, Reason: Provider Name:Enrique Marina sonja, 08/18/2025 10:45:00 AM, [address], [address], [place], [place], [id number], Provider Name:Enrique Marina sonja, 09/03/2025 11:45:00 AM, [address], [address], [place], [place], [id number], Progress Notes * Kishore ROSAB: 2 (45 yo F)Acc No.[id number]:07/15/2025 Progress Notes Patient: Preeti FOSTER Provider: CAITLIN Almanza :1980 A ge:45 Y S ex:Female Date:07/15/2025 Address:[place], [id number] Pcp:Ly Ayala Subjective: * Chief Complaints: * 1 . UPPER RESPIRATORY. * HPI: E NT/respiratory: has been able to eat and drink. 45 year old female presents with c/o sore throat f eels scratchy, swallowing painful. Pt states she is having in her jaw. Pt states she was seen by a CSO close to home last and they did [...] Temp: 97.9, BP: 120/74, HR: 97, Nurse: SF, Ht: 66, BMI:24.93. * Examination: G eneral [...] and oriented. Assessment: * Assessment: 1. A shaileshe upper respiratory infection - 465.9 (Primary) Plan: * Treatment: Value Reference Range r esults neg * Lyly Dietrich 07/15/2025 11 :48:18 AM EST > Provider reviewed results while patient in office.Fatemeh Gomez 07/15/2025 08:35:02 PM EST > ?LAB: Covid test (in house) (Collection Date & Time - 07/15/2025)?Negative* Value Reference Range R esult: neg * Lyly Dietrich 07/15/2025 11 :48:43 AM EST > Provider reviewed results while patient in office.Fatemeh Gomez 07/15/2025 08:35:33 PM EST > Notes: fluids, [...] > Provider reviewed results while patient in office.Fatemeh Gomez 07/15/2025 08:35:50 PM EST > * Procedure Codes: 3 6416 CAPILLARY BLOOD DRAW, 10544 CBC WITH AUTO DIFF, 51027 Flu Test- Nasal Swab, Modifiers: QW , 74902 COVID TEST IN HOUSE, Modifiers: QW * Follow Up: p rn * Images: Billing Information: * Visit Code: 75390 Office Visit, Est Pt., Level 3. * Procedure Codes: 87003 CAPILLARY BLOOD DRAW. 71151 CBC WITH AUTO DIFF. 97533 Flu Test- Nasal Swab. Modifiers: QW 96956 COVID TEST IN HOUSE. Modifiers: QW * Electronic signature of Rosario courtneymelinda Gomez APRN on 08/16/2025 at 08:30 PM EST Sign off status: Pending * Provider: CAITLIN Almanza Date: 09/14/2024 Generated for Printi ng/Bayg/eTransmitting on: 10/17/2024 08:30 PM EST History and Physical Notes * HPI (History of Present Illness) Category Sub-Category Detail Notes Category Not es ENT/respiratory sore throat feels scratchy, swallowing painful. Pt states she is having in her jaw. Pt states she was seen by a CSO close to home last and they did [...]
--- OUTSIDE RECORDS SUMMARY | 2025-07-18 09:00 | XMS_ITS ---
Author Organization [facility] Address [address] [facility] [address] [place] [id number] Care Team Providers Care Lead Ios Developer Name Role Phone Ly Ayala Primary Care Provider Enrique Brower [phone] Allergies Allergen (clinical drug ingredient) Drug/Non Drug Allergy documented on EMR Reaction Allergy Type Onset Date Status acetaminophen / hydrocodone HYDROcodone-Acetam inophen stomach upset Drug Allergy Active Penicillin Unknown Drug Allergy Active Results Component Value Reference Range Notes Influenza Screen (in house) Reviewed date:07/18/2025 03:59:01 PM Interpretation: Performing Lab: Notes/Report: results neg CBC Fingerstick (in house) Reviewed date:07/18/2025 03:58:52 PM Interpretation: Performing Lab: Notes/Report: wbc 9.0 3.5 - 10 lym 47.8% 15 - 50 mid 9.2% 2 - 15 gran 43.0 35 - 80 rbc 5.16 3.5 - 5.5 hgb 15.0 11.5 - 16.5 hct 44.9 35 - 55 mcv 87.0 75 - 100 mch 29.1 25 - 35 mchc 33.4 31 - 38 plat 179 100 - 400 H-UPPER RESP, PCR Reviewed date:08/06/2025 12:50:24 PM Interpretation: Performing Lab: Notes/Report: Covid test (in house) Reviewed date:07/18/2025 03:59:14 PM Interpretation:Negative Performing Lab: Notes/Report: Negative Result: neg CXR Reviewed date:07/23/2025 03:58:52 PM Interpretation:Negative Performing Lab: Notes/Report: Negative REASON FOR VISIT upper respiratory, jaw pain Medications Medication SIG (Take, Route, Frequency, Duration) Notes Start Date End Date Status Albuterol Sulfate (2.5 MG/3ML) 0.083% 3 mL Inhalation every 6 hrs As needed 07/18/2025 Active Ondansetron HCl 4 MG 1 tablet Orally every 8 hours As needed 07/18/2025 Active Albuterol Sulfate HFA 108 (90 Base) MCG/ACT 1 puff as needed Inhalation every 4 hrs; Duration: 30 days Active Claritin 10 MG 1 tablet Orally Once a day Active Cefuroxime Axetil 500 MG 1 tablet Orally every 12 hrs; Duration: 7 days 07/15/2025 Not-Taking Promethazine-DM 6.25-15 MG/5ML 5 mL as needed Orally every 6 hrs 07/15/2025 Active Vitamin D 50 MCG (2000 UT) 1 capsule Orally Once a day; Duration: 30 day(s) Active tiZANidine HCl 2 MG 1 tablet as needed Orally Three times a day 06/07/2024 Active Vitamin C 500 MG as directed Orally Active Mucinex 600 MG 1 tablet as needed Orally every 12 hrs Active Vital Signs Weight 157.6 lbs 07/18/2025 Blood pressure systolic 120 mm Hg 07/18/20 Blood pressure diastolic 68 mm Hg 025 Heart Rate 94 /min 07/18/2025 Height 66 in 07/18/2025 BMI 25.43 kg/m2 07/18/2025 Encounters Encounter Location Date Provider Diagnosis [facility] [address] [phone] 07/18/2025 Enrique [place] Viral URI J06.9 ; Cough, unspecified type R05.9 and Nausea R11.0 Assessments Encounter Date Diagnosis (ICD Code) Assessment Notes Treatment Notes Treatment Clinical Notes Section Notes 07/18/2025 Viral URI (ICD-10 - J06.9) 07/18/2025 Cough, unspecified type (ICD-10 - R05.9) 07/18/2025 Nausea (ICD-10 - R11.0) Plan Of Treatment Medication Medication Name Sig Start Date Stop Date Notes Albuterol Sulfate (2.5 MG/3M L) 0.083% 3 mL Inhalation every 6 hrs 07/18/2025 Ondansetron HCl 4 MG 1 tablet Orally rosina ry 8 hours 07/18/2025 Next Appt Details Follow Up: via phone to repo rt test results, Reason: Provider Name:Enrique Marina sonja, 08/18/2025 10:45:00 AM, [address], [address], [place], [place], [id number], Provider Name:Enrique Marina sonja, 09/03/2025 11:45:00 AM, [address], [address], [place], [place], [id number], Progress Notes * Kishore ROSALoulou: 2 (45 yo F)Acc No.[id number]:07/18/2025 Progress Notes Patient: Preeti FOSTER Provider: Loulou Brower M.D. :1980 A ge:45 Y S ex:Female Date:07/18/2025 Address:[id number] Pcp:Ly Ayala Subjective: * Chief Complaints: * 1 . Upper respiratory, jaw pain. * HPI: E NT/respiratory: 45 year old female presents with c/o sore throat P t states was here on 07/15 for the same symptoms. Pt states she is wanting more test ran than Covid and Flu.Pt's tested were Negative on 07/15. P t states her jaw pain is really bad and at times unable to open her mouth. Pt states it is painful to swallow . c/o cough g reenish yellow sputum production. c/o nasal congestion P t states she has a stopped up nose at times and other its runny, green drainage, yellow drainage. c/o headache p ressure like sensation. c/o dizziness P t states she is dizzy at times and has been nausea. c/o body aches aching all over . * Medical History: H eadache, Thorne's Palsy, [...] ouside US: no. * Medications: T aking Mucinex 600 MG Tablet Extended Release 12 Hour 1 tablet as needed Orally every 12 hrs , Taking Vitamin D 50 MCG (2000 UT) Capsule 1 capsule Orally Once a day , Taking tiZANidine HCl 2 MG Tablet 1 tablet as needed Orally Three times a day , Taking Promethazine-DM 6.25-15 MG/5ML Syrup 5 mL as needed Orally every 6 hrs , Taking Vitamin C 500 MG Capsule as directed Orally , Taking Claritin 10 MG Tablet 1 tablet Orally Once a day , Taking Albuterol Sulfate HFA 108 (90 Base) MCG/ACT Aerosol Solution 1 puff as needed Inhalation every 4 hrs , Not-Taking Cefuroxime Axetil 500 MG Tablet 1 tablet Orally every 12 hrs , Discontinued predniSONE 10 MG Tablet 1 tablet with food or milk Orally Once a day , Medication List reviewed and reconciled with the patient * Allergies: P enicillin, HYDROcodone-Acetaminophen: stomach upset. Objective: * Vitals: W t: 157.6, Temp: 97.5, BP: 120/68, HR: 94, Nurse: ADALGISA, Ht: 66, BMI:25.43. * Examination: E NT/Respiratory: General Appearance: N AD, appears not to feel well. E yes: P ERRLA, sclera clear. O ral cavity : m inimal erythema without exudate on pharynx.?Neck : n o cervical lymphadenopathy. H eart : R RR, normal S1 S2. L ungs: c lear to auscultation bilaterally. Assessment: * Assessment: 1. V iral URI - J06.9 (Primary) 2 . C ough, unspecified type - R05.9 ? 3 . N ausea - R11.0 Plan: * Treatment: Value Reference Range r esults neg * Lyly Dietrich 07/18/2025 02 :31:33 PM EST > Provider reviewed results while patient in office.Enrique Brower Dyllan 07/18/2025 03:58:57 PM EST > ?LAB: CBC Fingerstick (in house) (Collection Date & Time - 07/18/2025)* Value Reference Range w bc 9.0 3.5 - 10 * l ym 47.8% 15 - 50 * m id 9.2% 2 - 15 * g ran 43.0 35 - 80 * r bc 5.16 3.5 - 5.5 * h gb 15.0 11.5 - 16.5 * h ct 44.9 35 - 55 * m cv 87.0 75 - 100 * m ch 29.1 25 - 35 * m chc 33.4 31 - 38 * p lat 179 100 - 400 * Lyly Dietrich 07/18/2025 02 :23:32 PM EST > Provider reviewed results while patient in office. ?LAB: Covid test (in house) (Collection Date & Time - 07/18/2025)?Negative* Value Reference Range R esult: neg * Lyly Dietrich 07/18/2025 02 :31:01 PM EST > Provider reviewed results while patient in office.Wayne Browersandor Mijares 07/18/2025 03:59:09 PM EST > ?LAB: H-UPPER RESP, PCR (Collection Date & Time - 08/06/2025)* see duplicate order 2.?Cough, unspecified type? Start Albuterol Sulfate Nebulization Solution, (2.5 MG/3ML) 0.083%, 3 mL, Inhalation, every 6 hrs As needed, 50, Refills 0.?Imaging: CXR (Performed Date - 07/18/2025)?Negative* Shanika Samaniego 07/22/2025 09: 28:48 AM EST > mini panel is negative however, it does look like a full panel is still pending.Dionna Nix 07/22/2025 12:10:33 PM EST > Tried to call pt, [employer] customer Dionna Jones 07/23/2025 03:58:39 PM EST > Pt notified of result at office visit today 3.?Nausea? Start Ondansetron HCl Tablet, 4 MG, 1 tablet, Orally, every 8 hours As needed, 20, Refills 0.? * Procedure Codes: 3 6416 CAPILLARY BLOOD DRAW, 12535 CBC WITH AUTO DIFF, 54237 Flu Test- Nasal Swab, Modifiers: QW , 93533 COVID TEST IN HOUSE, Modifiers: QW * Follow Up: v ia phone to report test results * Images: Billing Information: * Visit Code: 78212 Office Visit, Est Pt., Level 4. * Procedure Codes: 40326 CAPILLARY BLOOD DRAW. 86145 CBC WITH AUTO DIFF. 83997 Flu Test- Nasal Swab. Modifiers: QW 34672 COVID TEST IN HOUSE. Modifiers: QW * Electronic signature of Paige Brower MD on 08/16/2025 at 08:30 PM EST Sign off status: Pending * Provider: Loulou Brower M.D. Date: 09/17/2024 Generated for Andrew sheets/Marcos/eTransmitting on: 10/17/2024 08:30 PM EST History and Physical Notes * HPI (History of Present Illness) Category Sub-Category Detail Notes Category Not es ENT/respiratory sore throat Pt states was he re on 07/15 for the same symptoms. Pt states she is wanting more test ran than Covid and Flu.Pt's tested were Negative on 07/15. Pt states her jaw pain is really bad and at times unable to open her mouth. Pt states it is painful to swallow cough greenish yellow sput um production headache pressure like sensat ion nasal congestion Pt states she has a stopped up nose at times and other its runny, green drainage, yellow drainage dizziness Pt states she is diz zy at times and has been nausea body aches aching all over Examination Category Sub-Category Detail Notes Category Not es ENT/Respiratory Oral cavity : minimal erythema without exudate on pharynx Neck : no cervical lymphade nopathy Heart : RRR, normal S1 S2 Lungs: clear to auscultatio n bilaterally General Appearance: NAD, appears not to feel well Eyes: PERRLA, sclera clear
--- OUTSIDE RECORDS SUMMARY | 2025-07-23 05:15 | XMS_ITS ---
Author Organization [facility] Address [address] [facility] [address] [place] [id number] Care Team Providers Care Associate Producer Name Role Phone Ly Ayala Primary Care Provider [phone] Enrique Brower Unavailable [phone] Allergies Allergen (clinical drug ingredient) Drug/Non Drug Allergy documented on EMR Reaction Allergy Type Onset Date Status acetaminophen / hydrocodone HYDROcodone-Acetam inophen stomach upset Drug Allergy Active Penicillin Unknown Drug Allergy Active Results Component Value Reference Range Notes CBC Fingerstick (in house) Reviewed date:07/23/2025 01:49:16 PM Interpretation: Performing Lab: Notes/Report: wbc 8.2 3.5 - 10 lym 52.6% 15 - 50 mid 8.2% 2 - 15 gran 39.2% 35 - 80 rbc 5.11 3.5 - 5.5 hgb 14.7 11.5 - 16.5 hct 44.7 35 - 55 mcv 87.5 75 - 100 mch 28.7 25 - 35 mchc 32.8 31 - 38 plat 195 100 - 400 P-Respiratory Virus Expanded Panel, by PCR Reviewed date:07/24/2025 10:24:27 AM Interpretation: Performing Lab: Notes/Report: Test performed by [facility], d/b/a [facility] [address] [facility] , [address], [place] [address] Lisa London DO, Racing Secretary CLIA: [id number] Influenza A, PCR Not Detected Not Detected Influenza A (subtype H1) Not Detected Not Detected Influenza A (subtype H3) Not Detected Not Detected Influenza A (subtype H1-2009) Not Detected Not Detecte d Influenza B, PCR Not Detected Not Detected Adenovirus Not Detected Not Detected Human Metapneumovirus Not Detected Not Detected Parainfluenza 1 Not Detected Not Detected Parainfluenza 2 Not Detected Not Detected Parainfluenza 3 Not Detected Not Detected Parainfluenza 4 Not Detected Not Detected Rhinovirus/Enterovirus Not Detected Not Detected RSV Detected Not Detected SARS-CoV-2 Not Detected Not Detected Human Coronavirus 229E Not Detected Not Detected Human Coronavirus HKU1 Not Detected Not Detected Human Coronavirus NL63 Not Detected Not Detected Human Coronavirus OC43 Not Detected Not Detected Bordetella pertussis Not Detected Not Detected Chlamydia pneumoniae Not Detected Not Detected Mycoplasma pneumoniae Not Detected Not Detected Testing performed by a FDA-approved multiplexed qualitative test that utilizes reverse assembler carbon brushes (RT) and polymerase chain reaction (PCR) for the simultaneous detection and identification of multiple viral and bacterial nucleic acids. This test is highly sensitive and specific, but rare false positive and false negative results may occur. Results of this test should be interpreted in conjunction with clinical and laboratory findings. This laboratory is certified under the Clinical Laboratory Improvement Amendments of 1988 (CLIA) as qualified to perform high complexity clinical laboratory testing. Performed by [facility], [facility] d/b/a [facility], [address] [place] [address] , [facility], [place] [address], Lisa London DO, Racing Secretary, CLIA# [id number] REASON FOR VISIT f/u on being sick Medications Medication SIG (Take, Route, Frequency, Duration) Notes Start Date End Date Status Albuterol Sulfate HFA 108 (90 Base) MCG/ACT 1 puff as needed Inhalation every 4 hrs; Duration: 30 days Active Claritin 10 MG 1 tablet Orally Once a day Active Vitamin C 500 MG as directed Orally Active Albuterol Sulfate (2.5 MG/3ML) 0.083% 3 mL Inhalation every 6 hrs As needed 07/18/2025 Active tiZANidine HCl 2 MG 1 tablet as needed O rally Three times a day 06/07/2024 Active Vitamin D 50 MCG (2000 UT) 1 capsule Ora lly Once a day; Duration: 30 day(s) Active Mucinex 600 MG 1 tablet as needed O rally every 12 hrs Active Ondansetron HCl 4 MG 1 tablet Orally every 8 hours As needed 07/18/2025 Active Vital Signs Weight 158.2 lbs 07/23/2025 Blood pressure systolic 122 mm Hg 07/23/20 25 Blood pressure diastolic 72 mm Hg 025 Heart Rate 80 /min 07/23/2025 Height 66 in 07/23/2025 BMI 25.53 kg/m2 07/23/2025 Encounters Encounter Location Date Provider Diagnosis [facility] [address] [place] [id number] 07/23/2025 Enrique Brower Viral bronchitis J20 .8 Assessments Encounter Date Diagnosis (ICD Code) Assessment Notes Treatment Notes Treatment Clinical Notes Section Notes 07/23/2025 Viral bronchitis (ICD-10 - J20.8) Plan Of Treatment Next Appt Details Follow Up: 1 Week, Reason: Provider Name:Enrique Dyllan Salas casillas, 08/18/2025 10:45:00 AM, [address], [address], [place], [id number], Provider Name:Enrique casillas, 09/03/2025 11:45:00 AM, [address], [address], [place], [place], [id number], Progress Notes * Kishore ROSALoulou: 2 (45 yo F)Acc No.[id number]:07/23/2025 Patient: Preeti FOSTER Provider: Loulou Brower M.D. :1980 A ge:45 Y S ex:Female Date:07/23/2025 Address:[address] [id number] Pcp:Ly Ayala Subjective: * Chief Complaints: * 1 . F/u on being sick. * HPI: E NT/respiratory: 45 year old female presents with c/o cough P t was seen 07/18/2025 for cough. Pt had negative flu test in office and negative respiratory panel that was done at [facility]. Pt states symptoms have improved very little . Pt states she has to use inhaler 4 or more times a day for shortness of breath and is struggling to sleep due to it. Pt states she is really struggling to breath at times as well. Pt states jaw pain has not improved either, states it was throbbing this morning and woke her up from a sleep . * Medical History: H eadache, Thorne's [...] Orally Three times a day , Taking Vitamin C 500 MG Capsule as directed Orally , Taking Claritin 10 MG Tablet 1 tablet Orally Once a day , Taking Albuterol Sulfate HFA 108 (90 Base) MCG/ACT Aerosol Solution 1 puff as needed Inhalation every 4 hrs , Taking Albuterol Sulfate (2.5 MG/3ML) 0.083% Nebulization Solution 3 mL Inhalation every 6 hrs As needed, Taking Ondansetron HCl 4 MG Tablet 1 tablet Orally every 8 hours As needed, Discontinued Promethazine-DM 6.25-15 MG/5ML Syrup 5 mL as needed Orally every 6 hrs , Discontinued Cefuroxime Axetil 500 MG Tablet 1 tablet Orally every 12 hrs , Medication List reviewed and reconciled with the patient * Allergies: P enicillin, HYDROcodone-Acetaminophen: stomach upset. Objective: * Vitals: W t: 158.2, Temp: 98.0, BP: 122/72, HR: 80, O2 Sat: 99% on RA, Nurse: berto, Ht: 66, BMI:25.53. * Examination: E NT/Respiratory: General Appearance: N AD, appears to feel much better than last visit. E yes: P ERRLA, sclera clear. O ral cavity : m inimal erythema without exudate on pharynx. N arturo : n o cervical lymphadenopathy. H eart : R RR, normal S1 S2. L ungs: c lear to auscultation bilaterally. Assessment: * Assessment: 1. V iral bronchitis - J20.8 (Primary) Plan: * Treatment: Value Reference Range A denovirus Not Detected Not Detected - * I nfluenza A (subtype H1) Not Detected Not Detected - * I nfluenza A (subtype H3) Not Detected Not Detected - * I nfluenza A, PCR Not Detected Not Detected - * I nfluenza B, PCR Not Detected Not Detected - * H uman Metapneumovirus Not Detected Not Detected - * P arainfluenza 1 Not Detected Not Detected - * P arainfluenza 2 Not Detected Not Detected - * P arainfluenza 3 Not Detected Not Detected - * P arainfluenza 4 Not Detected Not Detected - * I nfluenza A (subtype H1-2008) Not Detected Not Detecte d - * R hinovirus/Enterovirus Not Detected Not Detected - * R SV Detected A Not Detected - * S ARS-CoV-2 Not Detected Not Detected - * C oronavirus 229E Not Detected Not Detected - * C oronavirus HKU1 Not Detected Not Detected - * C oronavirus NL63 Not Detected Not Detected - * C oronavirus OC43 Not Detected Not Detected - * B ordetella pertussis Not Detected Not Detected - * C hlamydia pneumoniae Not Detected Not Detected - * M ycoplasma pneumoniae Not Detected Not Detected - * Shanika Samaniego 07/24/2025 10: 24:09 AM EST > See phone encounter ?LAB: CBC Fingerstick (in house) (Collection Date & Time - 07/23/2025)* Value Reference Range w bc 8.2 3.5 - 10 * l ym 52.6% 15 - 50 * m id 8.2% 2 - 15 * g ran 39.2% 35 - 80 * r bc 5.11 3.5 - 5.5 * h gb 14.7 11.5 - 16.5 * h ct 44.7 35 - 55 * m cv 87.5 75 - 100 * m ch 28.7 25 - 35 * m chc 32.8 31 - 38 * p lat 195 100 - 400 * Dionna Nix 07/23/2025 10:58: 38 AM EST > Provider reviewed results while patient in office. * Procedure Codes: 3 6416 CAPILLARY BLOOD DRAW, 52927 CBC WITH AUTO DIFF * Follow Up: 1 Week * Images: Billing Information: * Visit Code: 32069 Office Visit, Est Pt., Level 3. * Procedure Codes: 36158 CAPILLARY BLOOD DRAW. 07035 CBC WITH AUTO DIFF. * Electronic signature of Paige Brower MD on 08/16/2025 at 08:30 PM EST Sign off status: Pending * Provider: Loulou Brower M.D. Date: 09/23/2024 Generated for Andrew sheets/Marcos/Barak on: 10/17/2024 08:30 PM EST History and Physical Notes * HPI (History of Present Illness) Category Sub-Category Detail Notes Category Not es ENT/respiratory cough Pt was seen 06/22 for cough. Pt had negative flu test in office and negative respiratory panel that was done at [facility]. Pt states symptoms have improved very little . Pt states she has to use inhaler 4 or more times a day for shortness of breath and is struggling to sleep due to it. Pt states she is really struggling to breath at times as well. Pt states jaw pain has not improved either, states it was throbbing this morning and woke her up from a sleep Examination Category Sub-Category Detail Notes Category Not es ENT/Respiratory Oral cavity : minimal erythema without exudate on pharynx Neck : no cervical lymphade nopathy Heart : RRR, normal S1 S2 Lungs: clear to auscultatio n bilaterally General Appearance: NAD, appears to feel much better than last visit Eyes: PERRLA, sclera clear
--- OUTSIDE RECORDS SUMMARY | 2025-07-28 08:45 | XMS_ITS ---
[facility] [address] [place] [id number] Care Team Providers Care Jet Inspector Name Role Phone Ly Ayala Primary Care Provider Enrique Brower Unavailable [phone] Allergies Allergen (clinical drug ingredient) Drug/Non Drug Allergy documented on EMR Reaction Allergy Type Onset Date Status acetaminophen / hydrocodone HYDROcodone-Acetam inophen stomach upset Drug Allergy Active Penicillin Unknown Drug Allergy Active REASON FOR VISIT follow up RSV Medications Medication SIG (Take, Route, Frequency, Duration) Notes Start Date End Date Status Ondansetron HCl 4 MG 1 tablet Orally every 8 hours As needed 07/18/2025 Not-Taking Albuterol Sulfate (2.5 MG/3ML) 0.083% 3 mL Inhalation every 6 hrs As needed 07/18/2025 Active Claritin 10 MG 1 tablet Orally Once a day Active Vitamin C 500 MG as directed Orally Active Albuterol Sulfate HFA 108 (90 Base) MCG/ACT 1 puff as needed Inhalation every 4 hrs; Duration: 30 days Active Wixela Inhub 100-50 MCG/ACT 1 puff Inhal ation Twice a day 07/28/2025 Active Mucinex 600 MG 1 tablet as needed Orally every 12 hrs Not-Taking tiZANidine HCl 2 MG 1 tablet as needed Orally Three times a day 06/07/2024 Not-Taking Vitamin D 50 MCG (2000 UT) 1 capsule Ora lly Once a day; Duration: 30 day(s) Active Omeprazole 40 MG 1 capsule 1/2 to 1 hour before morning meal Orally Once a day; Duration: 30 days 07/28/2025 Active methylPREDNISolone 4 MG 3 tablet with fo od or milk Orally every 12 hrs; Duration: 5 days 07/28/2025 Active Problems Problem Type SNOMED Code ICD Code Onset Dates Problem Status W/U Status Risk Notes Problem Uncomplicated mild persistent asthma (625731559) Mild persistent asthma without complication (J45.30) Active confirmed Vital Signs Weight 152.0 lbs 07/28/2025 Blood pressure systolic 120 mm Hg 07/28/20 25 Blood pressure diastolic 68 mm Hg 025 Heart Rate 91 /min 07/28/2025 Height 66 in 07/28/2025 BMI 24.53 kg/m2 07/28/2025 Encounters Encounter Location Date Provider Diagnosis [facility] [address] [facility] [address] [place], [place] [id number] 07/28/2025 Enrique Brower Infection due to respiratory syncytial virus (RSV), unspecified infection type B33.8 ; Nausea and vomiting, unspecified vomiting type R11.2 ; SOB (shortness of breath) R06.02 and Mild persistent asthma without complication J45.30 Assessments Encounter Date Diagnosis (ICD Code) Assessment Notes Treatment Notes Treatment Clinical Notes Section Notes 07/28/2025 Infection due to respiratory syncytial virus (RSV), unspecified infection type (ICD-10 - B33.8) 07/28/2025 Nausea and vomiting, unspecified vomiting type (ICD-10 - R11.2) 07/28/2025 SOB (shortness of breath) (ICD-10 - R06.02) 07/28/2025 Mild persistent asthma without complication (ICD-10 - J45.30) Plan Of Treatment Medication Medication Name Sig Start Date Stop Date Notes Wixela Inhub 100-50 MCG/ACT 1 puff Inhalation Twice a day 07/28/2025 Omeprazole 40 MG 1 capsule 1/2 to 1 h our before morning meal Orally Once a day; Duration: 30 days 07/28/2025 predniSONE 10 MG 1 tablet with food o r milk Orally Once a day methylPREDNISolone 4 MG 3 tablet with fo od or milk Orally every 12 hrs; Duration: 5 days 07/28/2025 Next Appt Details Follow Up: 9 days, Reason: Provider Name:Enrique casillas, 08/18/2025 10:45:00 AM, [address], [address], [place], [id number], Provider Name:Enrique Marina ry, 09/03/2025 11:45:00 AM, [address], [address], [place], [id number], Progress Notes * Kishore ROSAB: 2 (45 yo F)Acc No.[id number]:07/28/2025 Progress Notes Patient: Preeti FOSTER Provider: Loulou Brower M.D. :1980 A ge:45 Y S ex:Female Date:07/28/2025 Address:[id number] Pcp:Ly Ayala Subjective: * Chief Complaints: * 1 . follow up RSV. * HPI: A llergy/Asthma: 45 year old female presents with c/o Asthma P t states she has had 2 Asthma attacks since being dx'd with RSV. Pt states she is doing okay other than the attacks. Pt states she would like to discuss med options instead of Prednisone . * Medical History: H eadache, Thorne's [...] ouside [place]: no. * Medications: T aking predniSONE 10 MG Tablet 1 tablet with food or milk Orally Once a day , Taking Vitamin D 50 MCG (2000 UT) Capsule 1 capsule Orally Once a day , Taking Vitamin C 500 MG Capsule as directed Orally , Taking Claritin 10 MG Tablet 1 tablet Orally Once a day , Taking Albuterol Sulfate HFA 108 (90 Base) MCG/ACT Aerosol Solution 1 puff as needed Inhalation every 4 hrs , Taking Albuterol Sulfate (2.5 MG/3ML) 0.083% Nebulization Solution 3 mL Inhalation every 6 hrs As needed, Not-Taking Mucinex 600 MG Tablet Extended Release 12 Hour 1 tablet as needed Orally every 12 hrs , Not-Taking tiZANidine HCl 2 MG Tablet 1 tablet as needed Orally Three times a day , Not-Taking Ondansetron HCl 4 MG Tablet 1 tablet Orally every 8 hours As needed, Medication List reviewed and reconciled with the patient * Allergies: P enicillin, HYDROcodone-Acetaminophen: stomach upset. Objective: * Vitals: W t: 152.0, Temp: 98.0, BP: 120/68, HR: 91, Nurse: ADALGISA, Ht: 66, BMI:24.53. * Examination: E NT/Respiratory: General Appearance: N AD. E yes: P ERRLA, sclera clear. O ral cavity : m inimal erythema without exudate on pharynx. N arturo : n o cervical lymphadenopathy. H eart : R RR, normal S1 S2. L ungs: c lear to auscultation bilaterally. Assessment: * Assessment: 1. I nfection due to respiratory syncytial virus (RSV), unspecified infection type - B33.8 (Primary) 2 . N ausea and vomiting, unspecified vomiting type - R11.2 ?3. S OB (shortness of breath) - R06.02 4 . M ild persistent asthma without complication - J45.30 Plan: * Treatment: 2. S OB (shortness of breath) Start methylPREDNISolone Tablet, 4 MG, 3 tablet with food or milk, Orally, every 12 hrs, 5 days, 30 Tablet, Refills 0; S top predniSONE Tablet, 10 MG, 1 tablet with food or milk, Orally, Once a day. 3. M ild persistent asthma without complication Start Wixela Inhub Aerosol Powder Breath Activated, 100-50 MCG/ACT, 1 puff, Inhalation, Twice a day, 60, Refills 0. * Follow Up: 9 days * Images: Billing Information: * Visit Code: 63794 Office Visit, Est Pt., Level 4. * Procedure Codes: * Electronic signature of Paige Brower MD on 08/16/2025 at 08:29 PM EST Sign off status: Pending * Provider: Loulou Brower M.D. Date: 09/28/2024 Generated for Andrew sheets/Marcos/Barak on: 10/17/2024 08:29 PM EST History and Physical Notes * HPI (History of Present Illness) Category Sub-Category Detail Notes Category Not es Allergy/Asthma Asthma Pt states she small s had 2 Asthma attacks since being dx'd with RSV. Pt states she is doing okay other than the attacks. Pt states she would like to discuss med options instead of Prednisone Examination Category Sub-Category Detail Notes Category Not es ENT/Respiratory Oral cavity : minimal erythema without exudate on pharynx Neck : no cervical lymphade nopathy Heart : RRR, normal S1 S2 Lungs: clear to auscultatio n bilaterally General Appearance: NAD Eyes: PERRLA, sclera clear
--- OUTSIDE RECORDS SUMMARY | 2025-07-30 06:15 | XMS_ITS ---
Author Organization [facility] Address [address] [facility] [address] [place] [id number] Care Team Providers Care Call Center Trainer Name Role Phone Ly Ayala Primary Care Provider Enrique Brower [phone] REASON FOR VISIT 1 week f/u Encounters Encounter Location Date Provider Diagnosis [facility] [address] [place] [id number] 07/30/2025 Enrique Brower Plan Of Treatment Next Appt Details Provider Name:Enrique casillas, 08/18/2025 10:45:00 AM, [address], [address], [place], [place], [phone], Provider Name:Enrique casillas, 09/03/2025 11:45:00 AM, [address], [address], [place], [place], [phone], Progress Notes * Kishore ROSAB: 2 (45 yo F)Acc No.[id number]:07/30/2025 Progress Notes Patient: Preeti FOSTER Provider: Loulou Brower M.D. :1980 A ge:45 Y S ex:Female Date:07/30/2025 Address:[id number] Pcp:Ly Ayala Subjective: * Chief Complaints: * 1 . 1 week f/u. * Medical History: Objective: * Vitals: Assessment: Plan: * Treatment: * Images: Billing Information: * Visit Code: * Procedure Codes: * Electronic signature of Paige Brower MD on 08/16/2025 at 08:29 PM EST Sign off status: Pending * Provider: Loulou Brower M.D. Date: 09/30/2024 Generated for Andrew sheets/Marcos/Barak on: 10/17/2024 08:29 PM EST
--- OUTSIDE RECORDS SUMMARY | 2025-08-06 06:00 | XMS_ITS ---
[facility] Organization [facility] Address [address] [place] [id number] Care Team Providers Care Mate First Name Role Phone Ly Ayala Primary Care Provider Enrique Brower Unavailable [phone] Allergies Allergen (clinical drug ingredient) Drug/Non Drug Allergy documented on EMR Reaction Allergy Type Onset Date Status acetaminophen / hydrocodone HYDROcodone-Acetam inophen stomach upset Drug Allergy Active Penicillin Unknown Drug Allergy Active REASON FOR VISIT 1 week Medications Medication SIG (Take, Route, Frequency, Duration) Notes Start Date End Date Status Albuterol Sulfate (2.5 MG/3ML) 0.083% 3 mL Inhalation every 6 hrs As needed 07/18/2025 Active Omeprazole 40 MG 1 capsule 1/2 to 1 h our before morning meal Orally Once a day; Duration: 30 days 07/28/2025 Active Wixela Inhub 100-50 MCG/ACT 1 puff Inhalation Twice a day 07/28/2025 Active Albuterol Sulfate HFA 108 (90 Base) MCG/ACT 1 puff as needed Inhalation every 4 hrs; Duration: 30 days Active Vitamin D 50 MCG (2000 UT) 1 capsule Ora lly Once a day; Duration: 30 day(s) Active Claritin 10 MG 1 tablet Orally Once a day Active Vitamin C 500 MG as directed Orally Active Vital Signs Weight 155.4 lbs 08/06/2025 Blood pressure systolic 122 mm Hg 08/06/20 25 Blood pressure diastolic 68 mm Hg 025 Heart Rate 84 /min 08/06/2025 Height 66 in 08/06/2025 BMI 25.08 kg/m2 08/06/2025 Encounters Encounter Location Date Provider Diagnosis [facility] [address] [facility] [address] [place] [id number] 08/06/2025 Enriquesandor Brower Infection due to respiratory syncytial virus (RSV), unspecified infection type B33.8 ; SOB (shortness of breath) R06.02 and Mild persistent asthma without complication J45.30 Assessments Encounter Date Diagnosis (ICD Code) Assessment Notes Treatment Notes Treatment Clinical Notes Section Notes 08/06/2025 Infection due to respiratory syncytial virus (RSV), unspecified infection type (ICD-10 - B33.8) 08/06/2025 SOB (shortness of breath) (ICD-10 - R06.02) Improved 08/06/2025 Mild persistent asthma without complication (ICD-10 - J45.30) Plan Of Treatment Medication Medication Name Sig Start Date Stop Date Notes Wixela Inhub 100-50 MCG/ACT 1 puff Inhalation Twice a day 07/28/2025 Treatment Notes Assessment Notes SOB (shortness of breath) Improved Next Appt Details Follow Up: 4 Weeks, Reason: Provider Name:Enrique T Jessicaaniyah sonja, 08/18/2025 10:45:00 AM, [address] [facility] 36 [facility], [address], [place], [phone], Provider Name:Enrique Marina sonja, 09/03/2025 11:45:00 AM, [address] [facility] 36 [facility], [address], [place], [phone], Progress Notes * Bony ROSA: 2 (45 yo F)Acc No.[id number]:08/06/2025 Patient: Dyllan RICOPana Provider: Loulou Brower M.D. :1980 A ge:45 Y S ex:Female Date:08/06/2025 Address:[id number] Pcp:Ly Ayala Subjective: * Chief Complaints: * 1 . 1 week. * HPI: E NT/respiratory: 45 year old female presents with c/o cough P t here for 1 week f/u. Pt dx with RSV. Pt states symptoms improved while she was taking steroid but she has completed them and feels like congestion and cough are coming back. * Medical History: H eadache, Thorne's Palsy, [...] US: no. * Medications: T aking Vitamin D 50 MCG (2000 UT) Capsule [...] Inhalation every 6 hrs As needed, Taking Omeprazole 40 MG Capsule Delayed Release 1 capsule 1/2 to 1 hour before morning meal Orally Once a day , Not-Taking Wixela Inhub 100-50 MCG/ACT Aerosol Powder Breath Activated 1 puff Inhalation Twice a day , Discontinued methylPREDNISolone 4 MG Tablet 3 tablet with food or milk Orally every 12 hrs , Discontinued dexAMETHasone 2 MG Tablet 1 tablet Orally twice a day , Discontinued Mucinex 600 MG Tablet Extended Release 12 Hour 1 tablet as needed Orally every 12 hrs , Discontinued tiZANidine HCl 2 MG Tablet 1 tablet as needed Orally Three times a day , Discontinued Ondansetron HCl 4 MG Tablet 1 tablet Orally every 8 hours As needed, Medication List reviewed and reconciled with the patient * Allergies: P enicillin, HYDROcodone-Acetaminophen: stomach upset. Objective: * Vitals: W t: 155.4, Temp: 97.8, BP: 122/68, HR: 84, O2 Sat: 90% on RA, Nurse: kk, Ht: 66, BMI:25.08. * Examination: G eneral Examination: General Appearance: N AD. H eart: R SR. L ungs:?clear to auscultation. Assessment: * Assessment: 1. I nfection due to respiratory syncytial virus (RSV), unspecified infection type - B33.8 (Primary) 2 . S OB (shortness of breath) - R06.02 3 . M ild persistent asthma without complication - J45.30 Plan: * Treatment: 2. M ild persistent asthma without complication Resume Wixela Inhub Aerosol Powder Breath Activated, 100-50 MCG/ACT, 1 puff, Inhalation, Twice a day. * Procedure Codes: 3 074F SYST BP LT 130 MM HG, 3078F DIAST BP < 80 MM HG * Follow Up: 4 Weeks * Images: Billing Information: * Visit Code: 37599 Office Visit, Est Pt., Level 3. * Procedure Codes: 3074F SYST BP LT 130 MM HG. 3078F DIAST BP < 80 MM HG. * Electronic signature of Paige Brower MD on 08/16/2025 at 08:30 PM EST Sign off status: Pending * Provider: Loulou Brower M.D. Date: 10/07/2024 Generated for Andrew sheets/Marcos/Andrewitting on: 10/17/2024 08:30 PM EST History and Physical Notes * HPI (History of Present Illness) Category Sub-Category Detail Notes Category Not es ENT/respiratory cough Pt here for 1 we ek f/u. Pt dx with RSV. Pt states symptoms improved while she was taking steroid but she has completed them and feels like congestion and cough are coming back Examination Category Sub-Category Detail Notes Category Not es General Examination Heart: RSR Lungs: clear to auscultatio n General Appearance: NAD
[2025-08-16 20:27] VITALS: BP 138/78; PULSE 71; RESP 18; TEMP 37.2; O2SAT 98; BMI 21.4
--- OUTSIDE RECORDS SUMMARY | 2025-08-16 20:29 | XMS_ITS | Clinical Summary ---
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
--- OUTSIDE RECORDS SUMMARY | 2025-08-16 20:30 | XMS_ITS ---
Author Organization Unknown ENCOUNTERS Encounter Performer Location Date Diagnosis Diagnosis Status Emergency [facility] [address] [place] [phone] Pre Admit [facility] [address] [facility] [address] [place] [address] [id number] Emergency [facility] [address] [facility] [address] [place] [address] [id number] JD Pre Admit [facility] [address] [place] [address] [id number] Emergency [facility] [address] [facility] [address] [place] [address] [id number] JD Pre [facility]mit [facility] [address] [facility] [address] [place] [address] [id number] Pre Admit [facility] [address] [place] [address] [id number] Emergency [facility] [address] [place] [address] [id number] JD Pre Admit [facility] [address] [place] [address] [id number] Emergency [facility] [address] [place] [address] [id number] JD Emergency [facility] [address] [place] [address] [id number] JD Pre Admit [facility] [address] [place] [address] [id number] Pre Admit [facility] [address] [place] [address] [id number] Emergency [facility] [address] [place] [address] [id number] JD Emergency [facility] [address] [facility] [address] [place] [address] [id number] JD Pre Admit [facility] [address] [facility] [address] [facility] [address] [id number] Emergency [facility] [address] [facility] [address] [facility] [address] [id number] JD Pre Admit [facility] [address] [facility] [address] [facility] [address] [id number] Emergency [facility] [address] [facility] [address] [facility] [address] [id number] JD Emergency [facility] [address] [facility] [address] [place] [phone] LWBS *Note: Encounters from your own facility or health system may be excluded. Allergies, Adverse Reactions, Alerts Allergen Type Severity Identification Date nalbuphine drug allergy 2 20180502 tramadol drug allergy 2 20180502 Penicillins drug allergy 2 20180502 Medications Name Date Quantity Days Supplied [facility] Number
--- OUTSIDE RECORDS SUMMARY | 2025-08-16 20:30 | XMS_ITS | Patient Health Record ---
Author Organization [facility] Address [address] [facility] [address] [place] [phone] Care Team Providers Care Criminal Research Specialist Name Role Phone Ly Ayala Primary Care Provider [phone] Enrique Brower Unavailable [phone] Fatemeh Gomez Unavailable [phone] Allergies Allergen (clinical drug ingredient) Drug/Non Drug Allergy documented on EMR Reaction Allergy Type Onset Date Status acetaminophen / hydrocodone HYDROcodone-Acetam inophen stomach upset Drug Allergy Active Penicillin Unknown Drug Allergy Active Results Component Value Reference Range Notes H-UPPER RESP, PCR Reviewed date:08/06/2025 12:50:24 PM Interpretation: Performing Lab: Notes/Report: CXR Reviewed date:07/23/2025 03:58:52 PM Interpretation:Negative Performing Lab: Notes/Report: Negative Covid test (in house) Reviewed date:07/18/2025 03:59:14 PM Interpretation:Negative Performing Lab: Notes/Report: Negative Result: neg CBC Fingerstick (in house) Reviewed date:07/18/2025 [...] - 38 plat 179 100 - 400 Influenza Screen (in house) Reviewed date:07/18/2025 03:59:01 PM Interpretation: Performing Lab: Notes/Report: results neg Influenza Screen (in house) Reviewed date:07/15/2025 08:35:16 PM Interpretation:Negative Performing Lab: Notes/Report: Negative results neg H-URI Panel-mini (Rhino,flu A/B, RSV, Covid) Reviewed date:07/23/2025 03:58:32 PM Interpretation:Negative Performing Lab: Notes/Report: RHINOPCR Not Detected NotDetected INFLUAPCR Not Detected NotDetected INFLUB Not Detected NotDetected RSVPCR Not Detected NotDetected COVIDHMH Not Detected NotDetected Effective 04/13/21, Positive covid results will no longer be called to the ordering physician. Infection control and the physician?s office will continue to report positive covid results to the local Health Department as required. This assay is for in vitro diagnostic use under FDA Emergency Use Authorization only. Negative results do not preclude infection with SARS CoV 2 virus and should not be the sole basis of a patient treatment/management or public health decision. Follow up testing should be performed according to the current CDC recommendations. CBC Fingerstick (in house) Reviewed date:07/15/2025 08:35:53 [...] Interpretation:Negative Performing Lab: Notes/Report: Negative Result: neg CBC Fingerstick (in house) Reviewed date:07/23/2025 01:49:16 [...] Performing Lab: Notes/Report: Test performed by [facility] [address] [place] [address] Lisa London DO, Pool Servicer CLIA: [id number] Influenza A, PCR Not Detected Not Detected [...] FDA-approved multiplexed qualitative test that utilizes reverse digital project manager (RT) and polymerase chain reaction (PCR) for [...] clinical laboratory testing. Performed by [facility] [address] [place] [address], Lisa London DO, Pool Servicer, CLIA# [id number] Medications Medication SIG (Take, Route, Frequency, Duration) Notes Start Date End Date Status Albuterol Sulfate (2.5 MG/3ML) 0.083% 3 mL Inhalation every 6 hrs As needed 07/18/2025 Active Wixela Inhub 100-50 MCG/ACT 1 puff Inhalation Twice a day 07/28/2025 Active Albuterol Sulfate HFA 108 (90 Base) MCG/ACT 1 puff as needed Inhalation every 4 hrs; Duration: 30 days Active Omeprazole 40 MG 1 capsule 1/2 to 1 h our before morning meal Orally Once a day; Duration: 30 days 07/28/2025 Active Vitamin D 50 MCG (2000 UT) 1 capsule Ora lly Once a day; Duration: 30 day(s) Active Claritin 10 MG 1 tablet Orally Once a day Active Vitamin C 500 MG as directed Orally Active Problems Problem Type SNOMED Code ICD Code Onset Dates Problem Status W/U Status Risk Notes Problem History of multiple allergies (situation) (747062434) Allergies (995.3) Active confirmed Problem Vitamin D deficiency (58634293) Vitamin D deficiency (E55.9) Active confirmed Problem Solitary nodule of lung (895455092) Lung nodule (R91.1) Active confirmed Problem Uncomplicated mild persistent asthma (549754931) Mild persistent asthma without complication (J45.30) Active confirmed Problem Disorder of neck (862914733) Disorder of neck (M53.82) Active confirmed Vital Signs Heart Rate 84 /min 08/06/2025 Blood pressure diastolic 68 mm Hg 08/06/2025 Height 66 in 08/06/2025 Blood pressure systolic 122 mm Hg 08/06/2025 Weight 155.4 lbs 08/06/2025 BMI 25.08 kg/m2 08/06/2025 Encounters Encounter Location Date Provider Diagnosis [facility] [facility] [address] [place], [place] [id number] 07/15/2025 Fatemeh Gomez Acute upper respiratory infection 465.9 [facility] [facility] [address] [place], [place] [id number] 07/18/2025 Enrique Thurmond Viral URI J06.9 ; Cough, unspecified type R05.9 and Nausea R11.0 [facility] [address] [place], [place] [id number] 07/23/2025 Enrique Thurmond Viral bronchitis J20 .8 [facility] [facility] [address] [place], [place] [id number] 07/28/2025 Enrique Thurmond Infection due to respiratory syncytial virus (RSV), unspecified infection type B33.8 ; Nausea and vomiting, unspecified vomiting type R11.2 ; SOB (shortness of breath) R06.02 and Mild persistent asthma without complication J45.30 [facility] [address] [facility] [address] [place], [place] [id number] 08/06/2025 Enrique Thurmond Infection due to respiratory syncytial virus (RSV), unspecified infection type B33.8 ; SOB (shortness of breath) R06.02 and Mild persistent asthma without complication J45.30 [facility] [address] [facility] [address] [place], [place] [id number] 07/16/2025 Fatemeh Gomez Acute upper respiratory infection 465.9 [facility] [address] [facility] [address] [place] [id number] 07/24/2025 Enrique Thurmond [facility] [address] [facility] [address] [place] [id number] 07/29/2025 Ly Ayala [facility] [address] [facility] [address] [place] [id number] 08/08/2025 Enrique Thurmond Mild persistent asth ma without complication J45.30 Assessments Encounter Date Diagnosis (ICD Code) Assessment Notes Treatment Notes Treatment Clinical Notes Section Notes 07/15/2025 Acute upper respiratory infection (ICD-10 - 465.9) fluids, rest, supportive measures for fever/symptom relief; has not been using her inhaler; will start tid and q2h prn until SOB, chest congestion and cough have resolved; will add new abx 07/23/2025 Viral bronchitis (ICD-10 - J20.8) 07/28/2025 Nausea and vomiting, unspecified vomiting type (ICD-10 - R11.2) 07/28/2025 Infection due to respiratory syncytial virus (RSV), unspecified infection type (ICD-10 - B33.8) 08/06/2025 Infection due to respiratory syncytial virus (RSV), unspecified infection type (ICD-10 - B33.8) 08/08/2025 Mild persistent asthma without complication (ICD-10 - J45.30) 07/18/2025 Viral URI (ICD-10 - J06.9) 07/18/2025 Cough, unspecified type (ICD-10 - R05.9) 07/16/2025 Acute upper respiratory infection (ICD-10 - 465.9) 07/18/2025 Nausea (ICD-10 - R11.0) 08/06/2025 SOB (shortness of breath) (ICD-10 - R06.02) Improved 07/28/2025 SOB (shortness of breath) (ICD-10 - R06.02) 07/28/2025 Mild persistent asthma without complication (ICD-10 - J45.30) 08/06/2025 Mild persistent asthma without complication (ICD-10 - J45.30) Plan Of Treatment Next Appt Details Provider Name:Enrique casillas, 08/18/2025 10:45:00 AM, [address], [address], [place], [id number], Provider Name:Enrique casillas, 09/03/2025 11:45:00 AM, [address], [address], [place], [place], [id number], Insurance Providers Payer Name Payer Address Payer Phone Subscriber Number Group Number Insured Name Patient Relationship to Insured Coverage Start Date Coverage End Date [facility] [address] [place] [address] [id number] Preeti Yi Self - patient is the insured Medications Administered Medication Instructions Date of Administration Dosage Notes Vistaril 50 mg 04/12/2010 50 mg Vistaril 50 mg 05/17/2010 5o mg Medical (General) History Medical History History ICD Code Headache Thorne's Palsy Asthma, normal spirometry 2017 Allergic Rhinitis Superficial venous Thrombosis - Right Ar m after IV infiltrated Asthma Surgical History Surgery Date(Month/Year) Laparoscopy
--- OUTSIDE RECORDS SUMMARY | 2025-08-16 20:31 | XMS_ITS | Clinical Summary ---
Author Organization [facility] Address [address] [place], [place] [address] Phone Care Team Providers Care Mosaic Floor Layer Name Role Phone Marcial Boyd MD Unavailable [phone] Enrique Kumar MD Primary Care Provider [phone] Allergies Active Allergy Reactions Criticality Noted Date Comments Penicillins Other (See Comments) 12/25/2017 Not sure the reaction, just was told she was from a child Medications loratadine (CLARITIN) 10 mg Oral Tablet Take 10 mg by mouth daily. Active Cholecalciferol, Vitamin D3, 50 mcg (2,000 unit) Oral CapsuleIndicatio ns:Sinus pressure Take by mouth. Active ferrous sulfate 325 mg (65 mg iron) Oral Tablet Take 325 mg by mouth daily. Active Active Problems Problem Noted Date Diagnosed Date Jaw pain 07/11/2025 Iron deficiency anemia 07/11/2025 Cervical radiculopathy 03/12/2025 Osteoarthritis of spine with radiculopathy, cerv ical region 12/17/2024 Assessment & Plan (12/17/2024 9:41 AM EDT): -MRI cervical spine order faxed to [facility], patient provided number to schedule -Provided number to chiropractor for neck pain and stiffness Deviated septum 01/10/2018 Vitamin D deficiency 12/26/2017 Assessment & Plan (12/17/2024 9:41 AM EDT): Orders: VITAMIN D 25 HYDROXY; Future Moderate persistent asthma without complication 12/25/2017 Family history of heart disease 12/25/2017 Anxiety and depression 12/25/2017 Encounters Date Type Department Care Team Description 07/15/2025 Results Follow-Up [facility] [place] [address] [place] [phone] Lana Ford, ELIAZAR VITAMIN D 25 HYDROXY, CBC WITH DIFF, IRON+TIBC 07/11/2025 10:00 AM EST Office Visit [facility] [place] [address] 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 Not on [...] 07/11/2025 4:01 PM EST [facility] Transferrin 267 200 - 360 mg/dL 07/11/2025 4:01 PM EST [facility] Transferrin Saturation 28 20 - 50 % 07/11/2025 4:01 PM EST [facility] TIBC 374 250 - 400 mcg/dL 07/11/2025 4:01 PM EST [facility] Blood VENOUS BLOOD / Unknown Venipuncture / Unknown 07/11/2025 11:32 AM EST 07/11/2025 11:32 AM EST Lana Ford CENTER CONSULTANT CHEMISTRY ORDERABLES Elise l Result [facility] 1 [facility] , [place] [address] * VITAMIN D 25 HYDROXY (07/11/2025 11:32 AM EST) Vit D 25 OH 32.1 30.0 - 150.0 ng/mL 07/11/2025 4:12 PM EST [facility] Comment: Preferred: >= 30 ng/mL Insufficient: 21-29 ng/mL Deficient <= 20 ng/mL Possible Toxicity: >150 ng/mL Samples should not be taken from patients receiving therapy with high biotin doses (i.e. > 5 mg/day) until at least 8 hours following the last biotin administration. Blood VENOUS BLOOD / Unknown Venipuncture / Unknown 07/11/2025 11:32 AM EST 07/11/2025 11:32 AM EST us Lana Ford APRN CHEMISTRY ORDERABLES Elise ngo Result [facility] [address] [facility] , [place] [address] * CBC WITH DIFF (07/11/2025 11:32 AM [...] 07/11/2025 2:48 PM EST [facility] Comment:Automated count of m etamyelocytes, myelocytes and promyelocytes. Lymph Percent 22.6 % 07/11/2025 2:48 PM EST [facility] [place] Percent 8.2 % 07/11/2025 2:48 PM EST [facility] Eos Percent 1.9 % 07/11/2025 2:48 PM EST [facility] Baso Percent 0.6 % 07/11/2025 2:48 PM EST [facility] Neut # 4.6 1.6 - 6.1 x10(3)/[facility] 07/11/2025 2:48 PM EST [facility] Comment:Neutrophils equals s egs plus bands IMMGRAN# 0.0 0.0 - 0.1 x10(3)/mcL 07/11/2025 2:48 PM EST [facility] Comment:Automated count of m etamyelocytes, myelocytes and promyelocytes. An absolute IG <0.1 is reported as 0.0. Lymph # 1.6 1.2 - 3.9 x10(3)/mcL 07/11/2025 2:48 PM EST [facility] [place] # 0.6 0.3 - 0.9 x10(3)/[facility] 07/11/2025 2:48 PM EST [facility] Eos# 0.1 0.0 - 0.5 x10(3)/mcL 07/11/2025 2:48 PM EST [facility] Baso # 0.0 0.0 - 0.1 x10(3)/[facility] 07/11/2025 2:48 PM EST [facility] Blood VENOUS BLOOD / Unknown Venipuncture / Unknown 07/11/2025 11:32 AM EST 07/11/2025 11:32 AM EST us Lana Ford CENTER CONSULTANT HEMATOLOGY ORDERABLES Fin al Result [facility] [address] [facility] , [address] [place] [id number] from Last 3 Months Insurance Care Teams Mosaic Floor Layer Relationship Specialty Start Date End Date Enrique Kumar MD [place] [facility] [place] [address] PCP - General Internal Medicine 10/19/22 Marcial Boyd MD [address] [place] [address] [place] [address] Internal Medicine-Cardiovascular Disease 07/28/20
--- OUTSIDE RECORDS SUMMARY | 2025-08-16 20:31 | XMS_ITS | Encounter Summary ---
Author Organization [facility] [place] [address] Care Team Providers Care Senior Technical Writer Name Role Phone Marcial Boyd MD Unavailable [phone] Enrique Kumar MD Primary Care Provider [phone] Encounter Details Date Type Department Care Team (Late st Contact Info) Description 07/15/2025 Results Follow-Up [facility] [address] [place] [address] Lana Ford, BALANCE ENGINEER [address] [place] [address] VITAMIN D 25 HYDROXY, CBC WITH [...] on filedocumented in this encounter Care Teams Senior Technical Writer Relationship Specialty Start Date End Date Enrique Kumar MD [address] [place] [address] [place] [phone] PCP - General Internal Medicine 10/19/22 Marcial Boyd MD [address] [place] [address] [place] [id number] Internal Medicine-Cardiovascular Disease 07/28/20 documented as of this encounter
--- OUTSIDE RECORDS SUMMARY | 2025-08-16 20:31 | XMS_ITS | Encounter Summary ---
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
--- NOTE | 2025-08-16 20:52 | CT_ITS ---
PROCEDURE INFORMATION: Exam: CT Abdomen And Pelvis With Contrast Exam date and time: 08/16/2025 10:46 PM Age: 45 years old Clinical indication: Abdominal pain TECHNIQUE: Imaging protocol: Computed tomography of the abdomen and pelvis with contrast. 3D rendering (Not supervised by radiologist): MIP and/or 3D reconstructed images were created by the technologist. Radiation optimization: All CT scans at this facility use at least one of these dose optimization techniques: automated exposure control; mA and/or kV adjustment per patient size (includes targeted exams where dose is matched to clinical indication); or iterative reconstruction. Contrast material: ISOVUE; Contrast volume: 70 ml; Contrast route: IV; COMPARISON: US ABDOMEN LIMITED 06/15/2020 8:09 AM FINDINGS: Lungs: No acute finding. Liver: There is a 10 mm ill-defined hypodense focus within the medial aspect of segment 7 of the liver series 4, image 26. Gallbladder and biliary ducts: Normal. No calcified stones. No ductal dilation. Pancreas: Normal. No ductal dilation. Spleen: Normal. No splenomegaly. Adrenal glands: Normal. No mass. Kidneys and ureters: Normal. No hydronephrosis. Stomach and bowel: Unremarkable. No obstruction. No mucosal thickening. Appendix: No evidence of appendicitis. Intraperitoneal space: There is trace free pelvic fluid. Vasculature: Unremarkable. No abdominal aortic aneurysm. Lymph nodes: Unremarkable. No enlarged lymph nodes. Urinary bladder: Unremarkable as visualized. Reproductive: Unremarkable as visualized. Bones/joints: Unremarkable. No acute fracture. Soft tissues: A tiny fat containing umbilical hernia is noted. IMPRESSION: 1. There is no acute process evident within the abdomen or pelvis. 2. 10 mm well-defined hypodense focus within the medial aspect of segment 7 of the liver. Further evaluation with non-emergent liver MRI is recommended. (Reference: Deshaun) REFERENCES: Deshaun COFFEY, et al. Management of Incidental Liver Lesions on CT: A White Paper of the ACR Incidental Findings Committee. J Am Vivi Radiol. 2017;14(11):1990-1833.
--- NOTE | 2025-08-16 20:52 | CT_ITS ---
PROCEDURE INFORMATION: Exam: CTA Chest With Contrast Exam date and time: 08/16/2025 10:46 PM Age: 45 years old Clinical indication: Shortness of breath TECHNIQUE: Imaging protocol: Computed tomographic angiography of the chest with contrast. Exam focused on the arteries. 3D rendering (Not supervised by radiologist): MIP and/or 3D reconstructed images were created by the technologist. Radiation optimization: All CT scans at this facility use at least one of these dose optimization techniques: automated exposure control; mA and/or kV adjustment per patient size (includes targeted exams where dose is matched to clinical indication); or iterative reconstruction. Contrast material: ISOUVE 370; Contrast volume: 70 ml; Contrast route: INTRAVENOUS (IV); COMPARISON: CR Chest 07/25/2025 5:20 PM FINDINGS: Pulmonary arteries: Normal. No pulmonary emboli. There is limited evaluation of the peripheral pulmonary arteries particularly at the lung bases. Aorta: Unremarkable. No aortic aneurysm. No aortic dissection. Lungs: Bilateral lower lobe calcified granulomas are noted. Pleural spaces: Unremarkable. No pneumothorax. No pleural effusion. Heart: Unremarkable. No cardiomegaly. No pericardial effusion. Lymph nodes: Small calcified left hilar lymph nodes are evident. Bones/joints: Unremarkable. No acute fracture. Soft tissues: Unremarkable. Other findings: Respiratory motion artifact is noted. IMPRESSION: 1. No acute findings. 2. No pulmonary emboli. There is limited evaluation of the peripheral pulmonary arteries particularly at the lung bases secondary to bolus timing and respiratory motion artifact.
[2025-08-16 21:04] LABS: Hematocrit 40.8 % (37.0-47.0); Hemoglobin 14.1 g/dL (12.2-16.2); Immature Granulocytes % 0.3 %; Mean Corpuscular HGB Conc 34.6 g/dL (31.8-35.4); Mean Corpuscular Hemoglobin 29.7 pg (27.0-31.2); Mean Corpuscular Volume 85.9 fl (81-99); Nucleated Red Blood Cells % 0 %; Platelet Count 362 K/mm3 (142-424); Red Blood Count 4.75 M/mm3 (4.20-5.40); Red Cell Distribution Width-SD 42.6 fL; White Blood Count 7.5 K/mm3 (4.8-10.8)
[2025-08-16 21:10] LABS: Albumin Level 5.1 g/dl (3.5-5.0); Chloride 104 mmol/L (98-107); Potassium 3.4 mmoL/L (3.5-5.1); Sodium 139 mmol/L (136-145)
--- NOTE | 2025-08-16 21:11 | ED_ITS ---
Discharge Plan Disposition Patient Disposition: Home, Self-Care Condition: Good Prescriptions Prescriptions: New famotidine [Pepcid] 20 mg tablet 20 mg PO HS Qty: 14 0RF No Action albuterol sulfate 90 mcg/actuation HFA aerosol inhaler 1 puff INHALATION Q6H PRN (Reason: Shortness Of Breath) ondansetron 4 mg tablet,disintegrating 4 mg PO Q6H PRN (Reason: nausea and vomiting) Qty: 7 0RF promethazine 12.5 mg tablet 12.5 mg PO TID PRN (Reason: sedation) Qty: 7 0RF ondansetron 4 mg tablet,disintegrating 4 mg PO Q6H PRN (Reason: nausea and vomiting) Qty: 7 0RF promethazine 12.5 mg tablet 12.5 mg PO TID PRN (Reason: nausea and vomiting) Qty: 7 0RF metoclopramide HCl [Reglan] 10 mg tablet 10 mg PO Q6H PRN (Reason: nausea and vomiting) Qty: 20 0RF fluticasone furoate 100 mcg/actuation blister with device 1 inh inhalation DAILY 30 Days Qty: 30 0RF prednisone 20 mg tablet 20 mg PO BID 5 Days Qty: 10 0RF tizanidine 2 mg tablet 2 mg PO DAILY Patient Comments: TAKE 1 TABLET BY MOUTH 3 TIMES DAILY NEEDED albuterol sulfate [Ventolin HFA] 90 mcg/actuation HFA aerosol inhaler 2 puff inhalation Q6H PRN (Reason: shortness of breath or wheezing) Qty: 6.7 0RF azithromycin [Zithromax] 250 mg tablet 250 mg PO UD DOSE PK Qty: 6 0RF Rx Instructions: Take two (2) tablets today, then one (1) tablet days #2 thru #5 methylprednisolone 4 mg Tablets,Dose Pack 4 mg PO DIRECTED 6 Days Qty: 21 0RF Rx Instructions: Take 1 pack as directed for 6 days meclizine 25 mg tablet 25 mg PO TID PRN (Reason: dizziness) Qty: 30 0RF ondansetron HCl 4 mg tablet 4 mg PO Q8H PRN (Reason: nausea and vomiting) 5 Days Qty: 30 0RF Referrals Follow up/Referrals: Enrique Brower MD [Primary Care Provider, Medical] - See instructions Pelon Louise II, MD [Staff Physician, Gastroenterology] - See instructions Roseann Garcia MD [Physician, Pulmonology] - See instructions Activity Restrictions/Add. Instructions Additional Instructions/Restrictions: I am referring you to Dr. Louise with gastroenterology team at for close follow-up regarding her belching and abdominal pain, which I anticipate is from acid reflux. I am prescribing Pepcid. I encourage you to take this as prescribed. I am also reviewed to Dr. Garcia with the pulmonology team I encourage you to contact both of these specialist Monday morning to get close follow-up. If you develop any new or worsening symptoms, or if you become concerned for your help for any reason, return to the emergency department for evaluation.. Clinical Impressions Clinical Impression: Belching, Epigastric abdominal pain, Shortness of breath, Lesion of liver Print Language Print Language: Welsh Discharge ED Provider: Miguel Neri Adult HPI <Modesta Jung (ED), [employer] - Last Filed: 08/16/25 21:58> General Chief complaint: Shortness of Breath/Dyspnea Stated complaint: asthma, acid, cant eat,trouble breathing Time Seen by Provider: 08/16/25 20:22 Mode of Arrival: Ambulatory Source of Information: Patient Description of Symptoms (Recalled from ER Triage Doc. by RN): Patient states she has been short of breath for the past 3 days. States she has been on the verge of coming to the ER but it hadnt gotten this bad. Reports severe SOA earlier today, states she took her albuterol inhaler right before coming to the ER, which improved her symptoms. Reports she has been SOA since around Jul 10 when she was diagnosied with some viral illness, which she said they didnt test for. Reports she is having chest pain, but states it is more of a chest tightness, denies pain, states she cannot get a deep breath. History of Present Illness HPI narrative: 45-year-old female presents to the ED today because she has been short of breath for the past 3 days. She actually has been short of breath and having the symptoms for the past month. She has been sleeping in our ER parking lot because she has been so scared that she is going to need to come to the ER. She has been doing her albuterol inhaler and her Wixela. It does improve her symptoms sometimes but sometimes it makes her worse. She was diagnosed with a viral illness, told she had RSV but then tested negative for it. She has been having chest tightness for a month. She has also been having nausea and vomiting and burning in her abdomen. She says that she is unable to get a deep breath in. She is having left sided abdominal pain. She says at times her abdomen will burning go up through her chest. She says she has lost 20 pounds in a month. She is unsure what is going on but she is very upset and very stressed about this. She has seen her tug boat captain Dr. Tapia who gave her the Wixela inhaler. She has also seen her primary care who told her she had a virus. She has not improved at all. Related Data Home Medications ?Medication ?Instructions ?Recorded ?Confirmed albuterol sulfate 90 mcg/actuation 1 puff inhalation Q 6H PRN 05/02/18 09/11/19 aerosol inhaler Shortness Of Breath tizanidine 2 mg tablet 2 mg PO DAILY 07/21/2407/21 Previous Rx's ?Medication ?Instructions ?Recorded albuterol sulfate 90 mcg/actuation 2 puff inhalation Q 6H PRN 07/21/24 aerosol inhaler (Ventolin HFA) shortness of breath or wheezing #6.7 grams azithromycin 250 mg tablet 250 mg PO UD DOSE PK #6 tab s 07/21/24 (Zithromax) methylprednisolone 4 mg tablets in 4 mg PO DIRECTED 6 days #21 tabs 07/21/24 a dose pack ondansetron 4 mg disintegrating 4 mg PO Q6H PRN nausea and 08/12/24 tablet vomiting #7 tabs ondansetron 4 mg disintegrating 4 mg PO Q6H PRN nausea and 08/12/24 tablet vomiting #7 tabs promethazine 12.5 mg tablet 12.5 mg PO TID PRN nausea and 08/12/24 vomiting #7 tabs promethazine 12.5 mg tablet 12.5 mg PO TID PRN sedatio n #7 tabs 08/12/24 metoclopramide HCl 10 mg tablet 10 mg PO Q6H PRN nause a and 11/28/24 (Reglan) vomiting #20 tabs meclizine 25 mg tablet 25 mg PO TID PRN dizziness # 30 tabs 08/06/25 ondansetron HCl 4 mg tablet 4 mg PO Q8H PRN nausea and 03/26/25 vomiting 5 days #30 tabs fluticasone furoate 100 1 inh inhalation DAILY 30 da ys #30 07/25/25 mcg/actuation blister powder for ea inhalation prednisone 20 mg tablet 20 mg PO BID 5 days #10 tabs 07/25/25 famotidine 20 mg tablet (Pepcid) 20 mg PO HS #14 tabs 08/17/25 Allergies Allergy/AdvReac Type Severity Reaction Status Date / Time nalbuphine (NALBUPHINE) Allergy Mild Verified 12/10/22 16:43 Penicillins (PENICILLINS) Allergy Mild Verified 12/10/22 16:43 tramadol (TRAMADOL) Allergy Mild Verified 12/10/22 16:43 PFSH <Modesta Jung (ED), [employer] - Last Filed: 08/16/25 21:58> PFS Disclaimer: The information contained in this section may have been updated after the patient was seen, as this information can be updated by other users. Social History Smoking Status: Never smoker alcohol intake: never current occupational status: employed Travel in the last 8 weeks?: Inside the [place] Have you lived/traveled outside US in past 30 days?: No Contact w/someone who lives/traveled outside US past 30 days?: No Exposure to someone with infectious disease in past 14 days?: No Do you have a fever (greater than 100.4 F or 38 C)?: No Have you tested positive for COVID-19?: No Exposed to someone with COVID-19 in past 14 days?: No Do you have a sore throat?: No Do you have a cough?: No Do you have any weakness?: No Do you have any diarrhea?: No Are you experiencing any unusual bleeding?: No Do you have any muscle aches/pain?: No Do you have any abdominal pain?: No Are you experiencing loss of taste or smell?: No Other Medical History Have you received the Flu Vaccine for this season: No Have you received the Pneumonia Vaccine: No <Modesta Jung (ED), [employer] - Last Filed: 08/16/25 21:58> ROS Obtained: Yes Systems reviewed as appropriate & no additional complaints except as documented Constitutional Constitutional: Reports as per HPI Physical Exam <Modesta Jung (ED), [employer] - Last Filed: 08/16/25 21:58> General General appearance: alert, anxious and in distress Head Head exam: normocephalic Eye Eye exam: Present PERRL ENT ENT exam: Present mucous membranes moist Neck Neck exam: Present trachea midline Chest Chest inspection: Present symmetric chest wall rise Respiratory Respiratory exam: Present normal lung sounds bilaterally Cardiovascular Cardiovascular exam: Present regular rate, normal rhythm, normal heart sounds, +S1 and +S2 Abdominal Exam Abdominal exam: Present soft and normal bowel sounds Abdominal tenderness: Present LUQ and LLQ Extremities Exam Extremities exam: Present normal inspection, full ROM and normal capillary refill Back Exam Back exam: Present full ROM Neurological Exam Neurological exam: Present alert and oriented X3 Psychiatric Psychiatric exam: Present normal mood Skin Skin exam: Present warm and dry Medical Decision Making <Modesta Jung (ED), [employer] - Last Filed: 08/16/25 21:58> Medical Records Screening: Per USPSTF and CDC recommendations, given the prevalence of disease in our region, it is our hospital?s policy to screen for HIV and viral Hepatitis for all patients aged 18 and over and those with ongoing risk factors. Warner Inquiry Pt receiving controlled substance: No Warner was queried for this patient: No Vital Signs: 08/16/25 20:27 08/17/25 00:05 08/17/25 00:36 Temperature 98.9 F 97.8 F Temperature Source Oral Oral Pulse Rate 78 Pulse Rate [Right] 71 Respiratory Rate 18 16 Blood Pressure 125/89 Blood Pressure [Right Arm] 138/78 Blood Pressure Mean [Right Arm] 98 Blood Pressure Source Automatic Cuff Blood Pressure Position Sitting 02 Sat by Pulse Oximetry 98 98 Oxygen Delivery Method Room Air Room Air Room Air Lab Data Lab Results 08/16/25 20:28: WBC 7.5, RBC 4.75, Hgb 14.1, Hct 40.8, MCV 85.9, MCH 29.7, MCHC 34.6, RDW 13.6, Plt Count 362, MPV 9.7, Neut % (Auto) 56.1, Lymph % (Auto) 34.3, Mower % (Auto) 7.5, Eos % (Auto) 1.3, Baso % (Auto) 0.5, Neut # (Auto) 4.2, Lymph # (Auto) 2.6, Mower # (Auto) 0.6, Eos # (Auto) 0.1, Baso # (Auto) 0.0, PT 11.0, INR 0.99, APTT 23.8, Sodium 139, Potassium 3.4 L, Chloride 104, Carbon Dioxide 24, Anion Gap 14.4, BUN 16, Creatinine 0.90, Estimated Creat Clear 84, Estimated GFR 68, Est GFR ( Amer) 83, Glucose 108 H, Calcium 11.0 H, Magnesium 2.4 H, Total Bilirubin 0.7, AST 27, ALT 26, Alkaline Phosphatase 62, Troponin I < 0.01, Total Protein 8.2, Albumin 5.1 H, Globulin 3.1, Albumin/Globulin Ratio 1.6, Lipase 105 08/16/25 21:09: Urine HCG, Qual Negative 08/16/25 20:28 08/16/25 20:28 Orders (Tests/Meds): ED MEDICATIONS Discontinued Medications Generic Name Dose Route Start Last Admin Trade Name Freq PRN Reason Stop Dose Admin Albuterol/Ipratropium 9 ml 08/16/25 20:53 08/16/25 21:16 Ipratropium/Albuterol 3 Ml Neb IH 08/16/25 20:54 9 ml ONCE ONE Administration Famotidine 20 mg 08/16/25 20:53 08/16/25 21:15 Famotidine 20mg/2ml Vial IV 08/16/25 20:54 20 mg ONCE ONE Administration Magnesium Sulfate 2 gm in 50 mls @ 50 mls/hr 08/16/25 20:53 08/17/25 00:35 Magnesium Sulfate 2gm/50ml Premix IV 08/16/25 21:52 Infused ONCE ONE Infusion Iopamidol 70 ml 08/16/25 22:53 08/16/25 22:57 Iopamidol-370 (76%);100ml Bottle IV 08/16/25 22:54 70 ml ONCE ONE Administration Lorazepam 0.5 mg 08/16/25 20:53 08/16/25 21:27 Lorazepam 2mg/Ml Vial IV 08/16/25 20:54 Not Given ONCE ONE Sodium Chloride 8 ml 08/16/25 20:53 08/16/25 21:16 Sodium Chloride 0.9% 10ml Vial IV 09/15/25 20:52 8 ml NEEDED PRN Administration dilute pepcid Sodium Chloride 10 ml 08/16/25 20:53 Sodium Chloride 0.9% 10ml Vial IV 09/15/25 20:52 NEEDED PRN to Dilute Lorazepam inj Sodium Chloride 40 ml 08/16/25 22:53 08/16/25 22:57 0.9 % Sodium Chloride 50 Ml Vial IV 08/16/25 22:54 40 ml ONCE ONE Administration Sodium Chloride 10 ml 08/16/25 22:53 08/16/25 22:57 Sodium Chloride 0.9% 10ml Syr (Rad Only) IV 09/15/25 22:52 10 ml NEEDED PRN Administration Maintain IV Site ORDERS Category Date Time Status CT abdomen pelvis w con Stat Cat Scan 08/16/25 20:52 Completed CTA Chest [CT angio chest PE protocol] Stat Cat Scan 08/16/25 20:52 Completed CBC [Complete Blood Count Auto Diff] Stat Lab 08/16/25 20:28 Completed Comprehensive Metabolic Panel Stat Lab 08/16/25 20:28 Completed Lipase Stat Lab 08/16/25 20:28 Completed Magnesium Stat Lab 08/16/25 20:28 Completed PT INR [Prothrombin Time INR] Stat Lab 08/16/25 20:28 Completed PTT [Activated Partial Thrombo Time] Stat Lab 08/16/25 20:28 Completed Trop I [Troponin I] Stat Lab 08/16/25 20:28 Completed Urine , HCG Qual. Stat Lab 08/16/25 21:09 Completed Medical Decision Narrative: patient is a 45-year-old female presenting to the emergency department for evaluation of chest tightness, shortness of breath, weight loss over the past month. Patient is hemodynamically stable and nontoxic-appearing upon arrival, afebrile. Differential diagnosis includes asthma, viral illness, ACS, malignancy, among others. Workup will be conducted with hematologic labs, specific imaging. Initial inventions include crystalloid bolus, analgesics. Discussed this patient with Dr. Nrei. Will give report to Halle <Miguel Neri MD - Last Filed: 08/17/25 11:11> Vital Signs: 08/16/25 20:27 08/17/25 00:05 08/17/25 00:36 Temperature 98.9 F 97.8 F Temperature Source Oral Oral Pulse Rate 78 Pulse Rate [Right] 71 Respiratory Rate 18 16 Blood Pressure 125/89 Blood Pressure [Right Arm] 138/78 Blood Pressure Mean [Right Arm] 98 Blood Pressure Source Automatic Cuff Blood Pressure Position Sitting 02 Sat by Pulse Oximetry 98 98 Oxygen Delivery Method Room Air Room Air Room Air Lab Data Lab Results 08/16/25 20:28: WBC 7.5, RBC 4.75, Hgb 14.1, Hct 40.8, MCV 85.9, MCH 29.7, MCHC 34.6, RDW 13.6, Plt Count 362, MPV 9.7, Neut % (Auto) 56.1, Lymph % (Auto) 34.3, Mower % (Auto) 7.5, Eos % (Auto) 1.3, Baso % (Auto) 0.5, Neut # (Auto) 4.2, Lymph # (Auto) 2.6, Mower # (Auto) 0.6, Eos # (Auto) 0.1, Baso # (Auto) 0.0, PT 11.0, INR 0.99, APTT 23.8, Sodium 139, Potassium 3.4 L, Chloride 104, Carbon Dioxide 24, Anion Gap 14.4, BUN 16, Creatinine 0.90, Estimated Creat Clear 84, Estimated GFR 68, Est GFR ( Amer) 83, Glucose 108 H, Calcium 11.0 H, Magnesium 2.4 H, Total Bilirubin 0.7, AST 27, ALT 26, Alkaline Phosphatase 62, Troponin I < 0.01, Total Protein 8.2, Albumin 5.1 H, Globulin 3.1, Albumin/Globulin Ratio 1.6, Lipase 105 08/16/25 21:09: Urine HCG, Qual Negative Orders (Tests/Meds): ED MEDICATIONS Discontinued Medications Generic Name Dose Route Start Last Admin Trade Name Freq PRN Reason Stop Dose Admin Albuterol/Ipratropium 9 ml 08/16/25 20:53 08/16/25 21:16 Ipratropium/Albuterol 3 Ml Neb IH 08/16/25 20:54 9 ml ONCE ONE Administration Famotidine 20 mg 08/16/25 20:53 08/16/25 21:15 Famotidine 20mg/2ml Vial IV 08/16/25 20:54 20 mg ONCE ONE Administration Magnesium Sulfate 2 gm in 50 mls @ 50 mls/hr 08/16/25 20:53 08/17/25 00:35 Magnesium Sulfate 2gm/50ml Premix IV 08/16/25 21:52 Infused ONCE ONE Infusion Iopamidol 70 ml 08/16/25 22:53 08/16/25 22:57 Iopamidol-370 (76%);100ml Bottle IV 08/16/25 22:54 70 ml ONCE ONE Administration Lorazepam 0.5 mg 08/16/25 20:53 08/16/25 21:27 Lorazepam 2mg/Ml Vial IV 08/16/25 20:54 Not Given ONCE ONE Sodium Chloride 8 ml 08/16/25 20:53 08/16/25 21:16 Sodium Chloride 0.9% 10ml Vial IV 09/15/25 20:52 8 ml NEEDED PRN Administration dilute pepcid Sodium Chloride 10 ml 08/16/25 20:53 Sodium Chloride 0.9% 10ml Vial IV 09/15/25 20:52 NEEDED PRN to Dilute Lorazepam inj Sodium Chloride 40 ml 08/16/25 22:53 08/16/25 22:57 0.9 % Sodium Chloride 50 Ml Vial IV 08/16/25 22:54 40 ml ONCE ONE Administration Sodium Chloride 10 ml 08/16/25 22:53 08/16/25 22:57 Sodium Chloride 0.9% 10ml Syr (Rad Only) IV 09/15/25 22:52 10 ml NEEDED PRN Administration Maintain IV Site ORDERS Category Date Time Status CT abdomen pelvis w con Stat Cat Scan 08/16/25 20:52 Completed CTA Chest [CT angio chest PE protocol] Stat Cat Scan 08/16/25 20:52 Completed CBC [Complete Blood Count Auto Diff] Stat Lab 08/16/25 20:28 Completed Comprehensive Metabolic Panel Stat Lab 08/16/25 20:28 Completed Lipase Stat Lab 08/16/25 20:28 Completed Magnesium Stat Lab 08/16/25 20:28 Completed PT INR [Prothrombin Time INR] Stat Lab 08/16/25 20:28 Completed PTT [Activated Partial Thrombo Time] Stat Lab 08/16/25 20:28 Completed Trop I [Troponin I] Stat Lab 08/16/25 20:28 Completed Urine , HCG Qual. Stat Lab 08/16/25 21:09 Completed Medical Decision Narrative: patient is a 45-year-old female presenting to the emergency department for evaluation of chest tightness, shortness of breath, weight loss over the past month. Patient is hemodynamically stable and nontoxic-appearing upon arrival, afebrile. Differential diagnosis includes asthma, viral illness, ACS, malignancy, among others. Workup will be conducted with hematologic labs, specific imaging. Initial inventions include crystalloid bolus, analgesics. Discussed this patient with Dr. Neri. Will give report to Halle Neri MD: I was consulted by the ROXANA, and we discussed the complexity of the problems being addressed. I approve the treatment and management plan for this patient's care in the emergency department, thus performing a substantive portion of the medical decision making. Patient's hematologic labs are grossly unremarkable and nonactionable. Troponin less than 0.01. Patient CT imaging was interpreted by me personally. No evidence of pulmonary embolism or pneumonia. No acute findings within the abdomen or pelvis. There is a 10 mm hypodense focus within the medial aspect of segment 7 of the liver. Will recommend outpatient follow-up for this. On reassessment, patient reports some shortness of breath as well as discomfort in her upper abdomen. She tells me that her shortness of breath gets worse when the abdominal pain gets worse. She states that sometimes she feels like she has to vomit up some acid to relieve the shortness of breath and pain. 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 She states that she has been taking pantoprazole and that she has not noticed much of a difference with her symptoms. She has not tried Pepcid before. Will prescribe Pepcid and refer her to gastroenterology for further workup. She also states that she was previously seeing a lung doctor but does not have one currently. Will give her referral to Dr. Garcia. Return precautions were given. All questions were answered. She demonstrated understanding and was in agreement with this plan. She was then discharged from the emergency department in stable condition. Critical Care <Modesta Jung (ED), [employer] - Last Filed: 08/16/25 21:58> Critical Care Time Critical Care Time: No
[2025-08-16 21:12] LABS: Activated Partial Thrombo Time 23.8 seconds (22.8-30.6); INR 0.99 (0.9-1.1); Prothrombin Time 11.0 seconds (10.1-12.5)
[2025-08-16 21:13] LABS: Alanine Aminotransferase 26 U/L (12-78); Albumin/Globulin Ratio 1.6 (1.1-1.8); Alkaline Phosphatase 62 U/L (38-126); Anion Gap 14.4 mEq/L (5-15); Aspartate Amino Transferase 27 U/L (14-36); Bilirubin,Total 0.7 mg/dl (0.2-1.3); Blood Urea Nitrogen 16 mg/dl (7-17); Calcium 11.0 mg/dl (8.4-10.2); Carbon Dioxide 24 mmol/L (22.0-30.0); Creatinine Clearance Estimated 84 mL/min (50-200); Creatinine,Serum 0.90 mg/dl (0.52-1.04); Estimated Glomerular Filt Rate 68 ml/min (>60); GFR (African American) 83 ML/MIN (>60); Globulin 3.1 g/dL (1.3-3.2); Glucose 108 mg/dl (74-100); Lipase 105 U/L (23-300); Magnesium 2.4 mg/dl (1.6-2.3); Total Protein,Serum 8.2 g/dl (6.3-8.2)
[2025-08-16] MEDS: FAMOTIDINE 20MG/2ML VIAL 20 MG IV (21:15)
[2025-08-16] MEDS: IPRATROPIUM/ALBUTEROL 3 ML NEB 9 ML IH (21:16)
[2025-08-16] MEDS: MAGNESIUM SULFATE IN WATER 2 GM/50 ML PIGGYBACK IV (21:16)
[2025-08-16] MEDS: SODIUM CHLORIDE 0.9% 10ML VIAL 8 ML IV (21:16)
[2025-08-16 21:21] LABS: Urine Pregnancy, HCG Qual. Negative (Negative)
--- NOTE | 2025-08-16 21:25 | ECG_ITS ---
APPROVED REPORT Exam: Resting ECG HR:99 bpm ECG Measurements Heart Rate 99 AXES ND 157 P 72 QRSd 70 QRS 61 QT 316 T 68 QTc 372 Conclusion SINUS RHYTHM NORMAL ECG No STEMI Electronically signed by : BELKYS JENKINS, 08/17/2025 07:13:12
[2025-08-16 21:29] LABS: Troponin I < 0.01 ng/ml (0.00-0.034)
--- NOTE | 2025-08-16 21:41 | HMH.ITSTN ---
This lead radiation therapist brought patient back to CT for her CT scans and patient was extremely nervous about getting the contrast. patient stated that she has had the contrast before but she has severe anxiety. patient stated that her RN her in the ER mentioned giving her medicine to relax her, but she really did not want to take the medicine. patient was returned back to her room to try to relax before trying to do CT scan again.
[2025-08-16] MEDS: 0.9 % SODIUM CHLORIDE 50 ML VIAL 40 ML IV (22:57)
[2025-08-16] MEDS: IOPAMIDOL-370 (76%);100ML BOTTLE 70 ML IV (22:57)
[2025-08-16] MEDS: SODIUM CHLORIDE 0.9% 10ML SYR (RAD ONLY) 10 ML IV (22:57)
[2025-08-17 00:05] VITALS: O2SAT 98
[2025-08-17 00:36] VITALS: BP 125/89; PULSE 78; RESP 16; TEMP 36.6; O2SAT 97
== END 2025-08-17 00:38 | disposition home or self-care (01) ==
PROVIDERS: Nurse Practitioner; Emergency Provider Student in an Organized Health Care Education/Training Program; PCP Family Medicine
DX: R10.13 Epigastric pain (principal); R06.02 Shortness of breath; R14.2 Eructation; K76.9 Liver disease, unspecified
CPT/HCPCS: 71275; 74177; 80053; 81025; 83690; 83735; 84484; 85025; 85610; 85730; 93005; 96365; 96375; 99285; J1308; J2060; J3475; Q9967